=== PATIENT | male | born 1955 | race Caucasian/White ===

== ENCOUNTER 2018-07-26 13:08 | Inpatient (IN) | payer OTHER ==
--- NOTE | 2018-07-26 14:18 | PDOC ---
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 Patient states that he is unable to walk half a block without getting short of breath. He states he is using multiple pillows to sleep and that he cannot lie flat at night. He states that he was admitted for similar symptoms this past summer. Denies fevers, chills, chest pain, palpitations, edema, nausea, vomiting and diarrhea. <Wendy Hodgson - Last Filed: 07/26/18 18:47> <Stacy Mustafa - Last Filed: 07/28/18 18:36> - General Chief Complaint: Respiratory Stated Complaint: RESPIRATORY (PCP SENT) Time Seen by Provider: 07/26/18 13:45 Past History - Travel Traveled outside of the country in the last 30 days: No Close contact w/someone who was outside of country & ill: No - Past Medical History Anemia: No Asthma: No Cancer: No Cardiac Disorders: Yes CVA: No COPD: No CHF: No Dementia: No Diabetes: Yes GI Disorders: No Disorders: No HTN: Yes Hypercholesterolemia: Yes Liver Disease: No Seizures: No Thyroid Disease: No - Surgical History Abdominal Surgery: No Appendectomy: No Cardiac Surgery: Yes (CABG, STENTS) Cholecystectomy: No Lung Surgery: No Neurologic Surgery: No Orthopedic Surgery: No - Immunization History Immunization Up to Date: Yes - Suicide/Smoking/Psychosocial Hx Smoking Status: No Smoking History: Unknown if ever smoked Have you smoked in the past 12 months: No Number of Cigarettes Smoked Daily: 0 Cigars Per Day: 0 Hx Alcohol Use: No Drug/Substance Use Hx: No Substance Use Type: None Hx Substance Use Treatment: No <Wendy Hodgson - Last Filed: 07/26/18 18:47> <Stacy Mustafa - Last Filed: 07/28/18 18:36> - Past Medical History Allergies/Adverse Reactions: Allergies Allergy/AdvReac Type Severity Reaction Status Date / Time No Known Drug Allergies Allergy Verified 07/26/18 13:17 Home Medications: Ambulatory Orders Aspirin [ASA -] 81 mg PO DAILY #60 tab.chew 06/12/14 Clopidogrel Bisulfate [Plavix -] 75 mg PO DAILY #30 tablet 06/12/14 Fenofibric Acid [Trilipix -] 135 mg PO DAILY #30 cap 06/12/14 Metoprolol Tartrate [Lopressor -] 25 mg PO BID #60 tablet 06/12/14 Tamsulosin HCl [Flomax -] 0.4 mg PO DAILY #30 cap.er.24h 06/12/14 Miconazole Nitrate [Miconazole Nitrate -] 1 applic TP BID #1 tube 06/20/14 Insulin Glargine,Hum.rec.anlog [Lantus Solostar PEN -] 45 units SQ HS 11/22/14 Baclofen 10 mg PO BID 04/22/18 Empagliflozin [Jardiance] 25 mg PO DAILY 04/22/18 Ranitidine [Zantac -] 150 mg PO BID 04/22/18 metFORMIN HCL [Glucophage -] 1,000 mg PO BID 04/22/18 Furosemide [Lasix -] 40 mg PO DAILY #30 tablet 04/24/18 Lisinopril [Prinivil] 5 mg PO DAILY #30 tablet 04/24/18 Gabapentin 600 mg PO BID 07/26/18 Atorvastatin Ca [Lipitor] 80 mg PO HS #30 tablet 07/27/18 Lisinopril [Prinivil] 2.5 mg PO DAILY #30 tablet 07/27/18 Review of Systems - Review of Systems Able to Perform ROS?: Yes Comments:: 07/26/18 18:47 CONSTITUTIONAL: Absent: fever, chills, diaphoresis, generalized weakness, malaise, loss of appetite HEENT: Absent: rhinorrhea, nasal congestion, throat pain, throat swelling, difficulty swallowing, mouth swelling, ear pain, eye pain, visual Changes CARDIOVASCULAR: Absent: chest pain, loss of consciousness, palpitations, irregular heart rate, peripheral edema RESPIRATORY: Present: shortness of breath, SOB on exertion, orthopnea. Absent: cough, wheezing, stridor, hemoptysis GASTROINTESTINAL: Absent: abdominal pain, abdominal distension, nausea, vomiting, diarrhea, constipation, melena, hematochezia GENITOURINARY: Absent: dysuria, frequency, urgency, hesitancy, hematuria, flank pain, genital pain MUSCULOSKELETAL: Absent: myalgia, arthralgia, joint swelling SKIN: Absent: rash, itching, pallor HEMATOLOGIC/IMMUNOLOGIC: Absent: easy bleeding, easy bruising, lymphadenopathy, frequent infections ENDOCRINE: Absent: unexplained weight gain, unexplained weight loss, heat intolerance, cold intolerance NEUROLOGIC: Absent: headache, focal weakness or paresthesias, dizziness, unsteady gait, seizure, mental status changes, bladder or bowel incontinence PSYCHIATRIC: Absent: anxiety, depression, suicidal or homicidal ideation, hallucinations. Is the patient limited Tongan proficient: No <Wendy Hodgson - Last Filed: 07/26/18 18:47> *Physical Exam - Vital Signs Last Vital Signs Temp Pulse Resp BP Pulse Ox 97.9 F 74 20 153/79 99 07/26/18 13:17 07/26/18 13:17 07/26/18 13:17 07/26/18 13:17 07/26/18 13:17 - Physical Exam Comments: 07/26/18 18:52 GENERAL: Well developed, well nourished. Awake and alert. No acute distress. HEENT: Normocephalic, atraumatic. PERRLA, EOMI. No conjunctival pallor. Sclera are non- icteric. Moist mucous membranes. Oropharynx is clear. NECK: Supple. Full ROM. No JVD. Carotid pulses 2+ and symmetric, without bruits. No thyromegaly. No lymphadenopathy. CARDIOVASCULAR: Regular rate and rhythm. No murmurs, rubs, or gallops. Distal pulses are 2+ and symmetric. PULMONARY: No evidence of respiratory distress. Lungs with bibasilar rales. No wheezing, or rhonchi. ABDOMINAL: Soft. Non-tender. Non-distended. No rebound or guarding. No organomegaly. Normoactive bowel sounds. MUSCULOSKELETAL Normal range of motion at all joints. No bony deformities or tenderness. No CVA tenderness. EXTREMITIES: No cyanosis. No clubbing. No edema. No calf tenderness. SKIN: Warm and dry. Normal capillary refill. No rashes. No jaundice. NEUROLOGICAL: Alert, awake, appropriate. Cranial nerves 2-12 intact. No deficits to light touch and temperature in face, upper extremities and lower extremities. No motor deficits in the in face, upper extremities and lower extremities. Normoreflexic in the upper and lower extremities. Normal speech. Toes are down- going bilaterally. Gait is normal without ataxia. PSYCHIATRIC: Cooperative. Good eye contact. Appropriate mood and affect. <Wendy Hodgson - Last Filed: 07/26/18 18:47> - Vital Signs Last Vital Signs Temp Pulse Resp BP Pulse Ox 98.7 F 74 20 137/65 97 07/28/18 14:23 07/28/18 14:23 07/28/18 14:23 07/28/18 14:23 07/28/18 09:00 <Stacy Mustafa - Last Filed: 07/28/18 18:36> ED Treatment Course - LABORATORY CBC & Chemistry Diagram: 07/26/18 14:18 07/26/18 14:18 - RADIOLOGY Radiology Studies Ordered: Category Date Time Status CHEST X-RAY PORTABLE* [RAD] Stat Radiology 07/26/18 13:55 Taken <Wendy Hodgson - Last Filed: 07/26/18 18:47> - LABORATORY CBC & Chemistry Diagram: 07/26/18 14:18 07/27/18 05:30 - ADDITIONAL ORDERS Additional order review: 07/26/18 14:18 RBC 3.85 L MCV 81.6 MCHC 32.1 RDW 15.3 MPV 9.7 Neutrophils % 76.3 Lymphocytes % 14.9 D Monocytes % 7.2 Eosinophils % 1.0 Basophils % 0.6 - Medications Given in the ED: ED Medications Discontinued Medications Generic Name Dose Route Start Last Admin Trade Name Freq PRN Reason Stop Dose Admin Aspirin 81 mg 07/27/18 10:00 07/28/18 09:19 Asa - PO 81 mg DAILY CHITO Administration Atorvastatin Calcium 80 mg 07/26/18 22:00 07/27/18 22:19 Lipitor - PO 80 mg HS CHITO Administration Baclofen 10 mg 07/27/18 22:00 07/28/18 09:19 Lioresal - PO 10 mg BID CHITO Administration Clopidogrel Bisulfate 75 mg 07/27/18 10:00 07/28/18 09:18 Plavix - PO 75 mg DAILY CHITO Administration Fenofibric Acid 135 mg 07/28/18 10:00 07/28/18 09:19 Trilipix - PO 135 mg DAILY CHITO Administration Furosemide 40 mg 07/26/18 16:00 07/26/18 19:27 Lasix Injection - IVPUSH 07/26/18 16:01 40 mg ONCE ONE Administration Furosemide 40 mg 07/27/18 06:00 07/28/18 07:02 Lasix Injection - IVPUSH 40 mg BIDLASIX CHITO Administration Furosemide 40 mg 07/28/18 14:00 07/28/18 14:03 Lasix - PO 40 mg BID@0600,1400 CHITO Administration Gabapentin 300 mg 07/26/18 23:45 07/28/18 09:16 Neurontin - PO 300 mg BID CHITO Administration Insulin Detemir 45 units 07/27/18 22:00 07/27/18 22:18 Levemir Vial SQ Not Given HS CHITO Lisinopril 2.5 mg 07/27/18 10:00 07/28/18 09:16 Prinivil PO 2.5 mg DAILY CHITO Administration Metformin HCl 1,000 mg 07/27/18 16:30 07/28/18 07:06 Glucophage - PO 1,000 mg BIDAC CHITO Administration Metoprolol Succinate 12.5 mg 07/28/18 10:00 07/28/18 09:18 Toprol Xl - PO 12.5 mg DAILY CHITO Administration <Stacy Mustafa - Last Filed: 07/28/18 18:36> Medical Decision Making - Medical Decision Making 07/26/18 16:12 Patient is a 63-year-old male past medical history of CHF, who presents to the [facility] department for worsening shortness of breath for one week. On exam patient with bilateral rales. No murmurs rubs or gallops on cardiac exam. S1 and S2 present. No pedal edema noted Oxygen saturation 94%. Place patient on nasal cannula. Creatinine is stable at 1.5 which is the patient's baseline. No leukocytosis. Collection is within normal limits. Chest x-ray with somewhat worsening effusion at this time. Spoke with Dr. Saleem, given rales on physical exam and worsening shortness of breath, will place patient in telemetry obs for CHF exacerbation. 40 of Lasix IV given in the emergency department given pt Cr at baseline. Case discussed with Dr. Armenta who agrees to placing the patient observation. <Wendy Hodgson - Last Filed: 07/26/18 18:47> *DC/Admit/Observation/Transfer - Discharge Dispostion Decision to Admit order: Yes <Wendy Hodgson - Last Filed: 07/26/18 18:47> - Attestations Physician Attestion: I reviewed the case with the mid-level practitioner and agree with the mid- level practitioner's assessment, diagnosis and disposition. <Stacy Mustafa - Last Filed: 07/28/18 18:36> Diagnosis at time of Disposition: Congestive heart failure (CHF) Qualifiers: Heart failure type: unspecified Heart failure chronicity: acute on chronic Qualified Code(s): I50.9 - Heart failure, unspecified - Discharge Dispostion Disposition: HOME Condition at time of disposition: Stable
[2018-07-26 14:28] LABS: BASO % 0.6 % (0-2.0); HEMATOCRIT 31.4 % (35.4-49); HEMOGLOBIN 10.1 GM/dL (11.7-16.9); LYMPH % 14.9 % (8-40); MCH 26.2 pg (25.7-33.7); MCHC 32.1 g/dl (32.0-35.9); MEAN CELL VOLUME 81.6 fl (80-96); MEAN PLT VOLUME 9.7 fl (7.5-11.1); MONO % 7.2 % (3.8-10.2); NEUT % 76.3 % (42.8-82.8); PLATELET COUNT 123 K/MM3 (134-434); RBC 3.85 M/mm3 (4.00-5.60); RDW 15.3 % (11.9-15.9); WHITE BLOOD COUNT 5.4 K/mm3 (4.0-10.0)
[2018-07-26 14:39] LABS: INR 1.17 (0.83-1.09); PROTHROMBIN TIME (PATIENT) 13.8 SEC (9.7-13.0)
[2018-07-26 14:58] LABS: ALBUMIN 3.2 g/dl (3.4-5.0); ALK PHOS 103 U/L (45-117); ANION GAP 7 MMOL/L (8-16); BILIRUBIN,TOTAL 0.6 mg/dL (0.2-1); BLOOD UREA NITROGEN 27 mg/dL (7-18); CHLORIDE 110 mmol/L (98-107); CO2 23 mmol/L (21-32); CREATININE 1.5 mg/dL (0.55-1.3); GLUCOSE,RANDOM 126 mg/dL (74-106); N-TERMINAL BNP 1740.2 pg/ml (5-125); POTASSIUM 4.5 mmol/L (3.5-5.1); SGOT/AST 19 U/L (15-37); SGPT/ALT 27 U/L (13-61); SODIUM 140 mmol/L (136-145); TOT PROT 6.7 g/dl (6.4-8.2)
[2018-07-26] MEDS ORDERED: FUROSEMIDE 40 MG/4 ML INJECTABLE VIAL IVPUSH ONE (16:00)
--- NOTE | 2018-07-26 17:06 | CON.CARD ---
Cardiology Consult (text) - Consultation Consultation Note: 63M with PAD,CAD, HTN, DM recent PCI sent to ER from my office for several days dyspnea, bilateral rales on exam for further management of acute on chronic diastolic CHF. REC: 1. Admit for IV diuresis and careful monitoring renal fx 2.Daily weights 3. Cardiac enzymes 4. Telemetry r/o occult arrhythmia as precipitant 5. Echo Will follow.
[2018-07-26 17:30] LABS: URINE APPEARANCE CLEAR; URINE BILIRUBIN NEGATIVE (<2.0 mg/dL); URINE COLOR LTYELLOW; URINE GLUCOSE (UA) NEGATIVE (NEGATIVE); URINE KETONE NEGATIVE (NEGATIVE); URINE LEUK ESTERASE NEGATIVE (NEGATIVE); URINE NITRITE NEGATIVE (NEGATIVE); URINE PROTEIN 2+ (NEGATIVE); URINE UROBILINOGEN NEGATIVE mg/dL (0.2-1.0)
[2018-07-26 17:45] LABS: URINE HYALINE CAST 3 /lpf; URINE MUCUS RARE
--- NOTE | 2018-07-26 18:20 | EKG ---
Test Reason : Blood Pressure : / mmHG Vent. Rate : 069 BPM Atrial Rate : 069 BPM P-R Int : 188 ms QRS Dur : 100 ms QT Int : 412 ms P-R-T Axes : 040 -06 129 degrees QTc Int : 441 ms NORMAL SINUS RHYTHM POSSIBLE LEFT ATRIAL ENLARGEMENT LEFT VENTRICULAR HYPERTROPHY WITH REPOLARIZATION ABNORMALITY ABNORMAL ECG WHEN COMPARED WITH ECG OF 22-APR-2018 10:59, NO SIGNIFICANT CHANGE WAS FOUND Confirmed by EMI BAR MD ([id number]) on 07/26/2018 6:20:43 PM Referred By: Confirmed By:EMI BAR MD
--- NOTE | 2018-07-26 18:20 | HP ---
Admitting History and Physical - Primary Care Physician PCP: Axel Armenta - Admission Chief Complaint: sob History of Present Illness: 63M with PAD,CAD, HTN, DM recent PCI sent to ER from cardiology office for several days dyspnea, bilateral rales ,for further management of acute on chronic diastolic CHF. 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, Other (3rd nerve palsy) Cardiovascular: Yes: CAD, HTN, Hyperlipdemia, Other (PAD) Pulmonary: Yes: Asthma Rheumatology: Yes: Fibromyalgia Endocrine: Yes: Diabetes Mellitus - Past Surgical History Past Surgical History: Yes: CABG, Stent - Smoking History Smoking history: Unknown if ever smoked Have you smoked in the past 12 months: No Aproximately how many cigarettes per day: 0 - Alcohol/Substance Use Hx Alcohol Use: No - Social History ADL: Independent History of Recent Travel: No Home Medications - Allergies Allergies/Adverse Reactions: Allergies Allergy/AdvReac Type Severity Reaction Status Date / Time No Known Drug Allergies Allergy Verified 07/26/18 13:17 - Home Medications Home Medications: Ambulatory Orders Aspirin [ASA -] 81 mg PO DAILY #60 tab.chew 06/12/14 Clopidogrel Bisulfate [Plavix -] 75 mg PO DAILY #30 tablet 06/12/14 Fenofibric Acid [Trilipix -] 135 mg PO DAILY #30 cap 06/12/14 Metoprolol Tartrate [Lopressor -] 25 mg PO BID #60 tablet 06/12/14 Tamsulosin HCl [Flomax -] 0.4 mg PO DAILY #30 cap.er.24h 06/12/14 Miconazole Nitrate [Miconazole Nitrate -] 1 applic TP BID #1 tube 06/20/14 Insulin Glargine,Hum.rec.anlog [Lantus Solostar PEN -] 45 units SQ HS 11/22/14 Baclofen 10 mg PO BID 04/22/18 Empagliflozin [Jardiance] 25 mg PO DAILY 04/22/18 Ranitidine [Zantac -] 150 mg PO BID 04/22/18 metFORMIN HCL [Glucophage -] 1,000 mg PO BID 04/22/18 Furosemide [Lasix -] 40 mg PO DAILY #30 tablet 04/24/18 Lisinopril [Prinivil] 5 mg PO DAILY #30 tablet 04/24/18 Gabapentin 600 mg PO BID 11/19/18 Atorvastatin Ca [Lipitor] 80 mg PO HS #30 tablet 07/27/18 Lisinopril [Prinivil] 2.5 mg PO DAILY #30 tablet 07/27/18 Physical Examination Vital Signs: Vital Signs Temperature 97.9 F 07/26/18 13:17 Pulse Rate 74 07/26/18 13:17 Respiratory Rate 20 07/26/18 13:17 Blood Pressure 153/79 07/26/18 13:17 O2 Sat by Pulse Oximetry (%) 94 L 07/26/18 13:24 Constitutional: Yes: No Distress HENT: Yes: Atraumatic Neck: Yes: Supple Cardiovascular: Yes: Regular Rate and Rhythm Respiratory: Yes: Rales Gastrointestinal: Yes: Normal Bowel Sounds Extremities: Yes: WNL Edema: No Peripheral Pulses WNL: Yes Neurological: Yes: Alert, Oriented Labs: CBC, BMP 07/26/18 14:18 07/26/18 14:18 Imaging - Results Chest X-ray: Report Reviewed Problem List - Problems (1) Congestive heart failure (CHF) Assessment/Plan: on iv lasix improving Code(s): I50.9 - HEART FAILURE, UNSPECIFIED Qualifiers: Heart failure type: unspecified Heart failure chronicity: acute on chronic Qualified Code(s): I50.9 - Heart failure, unspecified (2) Diabetes Assessment/Plan: on meds stable Code(s): E11.9 - TYPE 2 DIABETES MELLITUS WITHOUT COMPLICATIONS (3) Hypertension Assessment/Plan: on meds stable Code(s): I10 - ESSENTIAL (PRIMARY) HYPERTENSION Assessment/Plan Laboratory Tests 07/26/18 07/26/18 07/26/18 14:18 14:18 14:18 WBC 5.4 RBC 3.85 L Hgb 10.1 L Hct 31.4 L MCV 81.6 MCH 26.2 MCHC 32.1 RDW 15.3 Plt Count 123 L MPV 9.7 Absolute Neuts (auto) 4.1 Neutrophils % 76.3 Lymphocytes % 14.9 D Monocytes % 7.2 Eosinophils % 1.0 Basophils % 0.6 Nucleated RBC % 0 PT with INR 13.80 H INR 1.17 H Sodium 140 Potassium 4.5 Chloride 110 H Carbon Dioxide 23 Anion Gap 7 L BUN 27 H Creatinine 1.5 H Creat Clearance w eGFR 47.27 Random Glucose 126 H Calcium 8.0 L Total Bilirubin 0.6 AST 19 ALT 27 Alkaline Phosphatase 103 Creatine Kinase Troponin I B-Natriuretic Peptide 1740.2 H Total Protein 6.7 Albumin 3.2 L Urine Color Urine Appearance Urine pH Ur Specific [place] Urine Protein Urine Glucose (UA) Urine Ketones Urine Blood Urine Nitrite Urine Bilirubin Urine Urobilinogen Ur Leukocyte Esterase Urine WBC (Auto) Urine RBC (Auto) Hyaline Casts Urine Mucus 07/26/18 07/26/18 14:18 16:34 WBC RBC Hgb Hct MCV MCH MCHC RDW Plt Count MPV Absolute Neuts (auto) Neutrophils % Lymphocytes % Monocytes % Eosinophils % Basophils % Nucleated RBC % PT with INR INR Sodium Potassium Chloride Carbon Dioxide Anion Gap BUN Creatinine Creat Clearance w eGFR Random Glucose Calcium Total Bilirubin AST ALT Alkaline Phosphatase Creatine Kinase 112 Troponin I 0.04 B-Natriuretic Peptide Total Protein Albumin Urine Color Ltyellow Urine Appearance Clear Urine pH 5.0 Ur Specific [place] 1.016 Urine Protein 2+ H Urine Glucose (UA) Negative Urine Ketones Negative Urine Blood 1+ H Urine Nitrite Negative Urine Bilirubin Negative Urine Urobilinogen Negative Ur Leukocyte Esterase Negative Urine WBC (Auto) <1 Urine RBC (Auto) 2 Hyaline Casts 3 Urine Mucus Rare Active Medications Generic Name Dose Route Start Last Admin Trade Name Freq PRN Reason Stop Dose Admin Aspirin 81 mg 07/27/18 10:00 Asa - PO DAILY CHITO Atorvastatin Calcium 80 mg 07/26/18 22:00 Lipitor - PO HS CHITO Clopidogrel Bisulfate 75 mg 07/27/18 10:00 Plavix - PO DAILY CHITO Furosemide 40 mg 07/27/18 06:00 Lasix Injection - IVPUSH BIDLASIX CHITO Lisinopril 2.5 mg 07/27/18 10:00 Prinivil PO DAILY CHITO
[2018-07-26] MEDS ORDERED: FUROSEMIDE 40 MG/4 ML INJECTABLE VIAL ONE (19:28)
[2018-07-26 21:27] VITALS: BMI 25.8
[2018-07-26] MEDS: ATORVASTATIN CA 80 MG TABLET (FP) PO SCH (21:36)
[2018-07-26] MEDS: GABAPENTIN 300 MG CAPSULE (FP) PO SCH (23:51)
[2018-07-27] MEDS: FUROSEMIDE 40 MG/4 ML INJECTABLE VIAL IVPUSH SCH ×2 (06:56→14:54)
[2018-07-27 07:49] LABS: ANION GAP 8 MMOL/L (8-16); BLOOD UREA NITROGEN 26 mg/dL (7-18); CALCIUM 8.4 mg/dL (8.5-10.1); CHLORIDE 109 mmol/L (98-107); CO2 26 mmol/L (21-32); CREATININE 1.3 mg/dL (0.55-1.3); GLUCOSE,RANDOM 118 mg/dL (74-106); MAGNESIUM 2.1 mg/dL (1.8-2.4); POTASSIUM 4.4 mmol/L (3.5-5.1); SODIUM 142 mmol/L (136-145)
--- NOTE | 2018-07-27 09:15 | PN ---
Progress Note, Physician Chief Complaint: Feeling better No acute distress - Current Medication List Current Medications: Active Medications Aspirin (Asa -) 81 mg PO DAILY [facility] Atorvastatin Calcium (Lipitor -) 80 mg PO HS [facility] Last Admin: 07/26/18 21:36 Dose: 80 mg Clopidogrel Bisulfate (Plavix -) 75 mg PO DAILY [facility] Furosemide (Lasix Injection -) 40 mg IVPUSH BIDLASIX [facility] Last Admin: 07/27/18 06:56 Dose: 40 mg Gabapentin (Neurontin -) 300 mg PO BID [facility] Last Admin: 07/26/18 23:51 Dose: 300 mg Lisinopril (Prinivil) 2.5 mg PO DAILY [facility] - Objective Vital Signs: Vital Signs Temperature 98.2 F 07/27/18 06:45 Pulse Rate 72 07/27/18 06:45 Respiratory Rate 20 07/27/18 06:45 Blood Pressure 130/67 07/27/18 06:45 O2 Sat by Pulse Oximetry (%) 99 07/26/18 21:28 Constitutional: Yes: No Distress, Calm Eyes: Yes: Conjunctiva Clear Respiratory: Yes: Other (decreased breath sounds at bases) Gastrointestinal: Yes: Soft (nontender) Edema: No Neurological: Yes: Alert, Oriented Labs: CBC, BMP 07/26/18 14:18 07/27/18 05:30 INR, PTT INR 1.17 (0.83-1.09) H 07/26/18 14:18 Laboratory Tests 07/27/18 07/27/18 05:30 05:30 Sodium 142 Potassium 4.4 BUN 26 H Creatinine 1.3 Hemoglobin A1c % 10.6 H Magnesium 2.1 Assessment/Plan IMP: CAD , hx NSTEMI and PCIs PAD DM Acute on chronic diastolic CHF REC: 1. Continue IV Lasix BID 2. Daily weights and low sodium diet 3. Echo 4. Continue Lisinopril 5. Needs improved glycemic control
--- NOTE | 2018-07-27 09:30 | ECHO ---
Name: REDDYSONIAYOVANY Exam:Adult Echocardiogram Study Date: 07/27/2018 07:47 AM Age: 63 yrs Reason For Study: chf Height: 68 in Weight: 179 lb BSA: 1.9 m2 MMode/2D Measurements & Calculations IVSd: 0.87 cm Ao root diam: 3.9 cm LVIDd: 6.2 cm LA dimension: 5.0 cm LVIDs: 4.9 cm ACS: 1.9 cm LVPWd: 0.84 cm IVSs: 1.0 cm LVPWs: 1.4 cm EDV(Teich): 194.0 ml ESV(Teich): 112.1 ml Doppler Measurements & Calculations MV E max manjit: 81.7 cm/sec Ao V2 max: 103.8 cm/sec MV A max manjit: 65.6 cm/sec Ao max P.3 mmHg MV E/A: 1.2 MR max manjit: 474.0 cm/sec Med Peak E' Manjit: 5.2 cm/sec MR max P.9 mmHg Med E/e': 15.8 Lat Peak E' Manjit: 7.1 cm/sec Lat E/e': 11.5 Procedure A complete two-dimensional transthoracic echocardiogram was performed (2D, M-mode, Doppler and color flow Doppler). Left Ventricle The left ventricle is moderately dilated. Ejection Fraction = 35%. Left ventricular systolic function is moderately reduced. The transmitral spectral Doppler flow pattern is suggestive of impaired LV relaxa tion. There is moderate global hypokinesis of the left ventricle. Right Ventricle The right ventricle is normal in size and function. Atria The left atrium is moderately dilated. Right atrial size is normal. Mitral Valve There is mild to moderate mitral annular calcification. There is mild to moderate mitral regurgitatio n. The mitral regurgitant jet is eccentrically directed. Tricuspid Valve The tricuspid valve is not well visualized, but is grossly normal. There is trace tricuspid regurgita tion. There was insufficient TR detected to calculate RV systolic pressure. Aortic Valve There is mild to moderate aortic sclerosis.;. Trace aortic regurgitation. Pulmonic Valve The pulmonic valve is not well seen, but is grossly normal. Great Vessels The aortic root is normal size. Pericardium/Pleura There is no pericardial effusion. There is no pleural effusion. Interpretation Summary The left ventricle is moderately dilated. There is moderate global hypokinesis of the left ventricle. Left ventricular systolic function is moderately reduced. Ejection Fraction = 35%. The left atrium is moderately dilated. There is mild to moderate mitral regurgitation. The mitral regurgitant jet is eccentrically directed. There is mild to moderate aortic sclerosis.; Trace aortic regurgitation. There is trace tricuspid regurgitation. MD Russell Delvalle 07/27/2018 09:30 AM
[2018-07-27 10:04] LABS: CHOLESTEROL 125 mg/dL (50-200); HDL CHOLESTEROL 23 mg/dL (40-60); TRIGLYCERIDES 202 mg/dL (0-150)
[2018-07-27] MEDS: ASPIRIN 81 MG CHEWABLE TABLETS PO SCH (10:10)
[2018-07-27] MEDS: LISINOPRIL 5 MG TABLET (FP) PO SCH (10:10)
[2018-07-27] MEDS: GABAPENTIN 300 MG CAPSULE (FP) PO SCH ×2 (10:10→22:20)
[2018-07-27] MEDS: CLOPIDOGREL BISULFATE 75 MG TABLET (FP) PO SCH (10:11)
--- NOTE | 2018-07-27 16:08 | PN ---
Progress Note, Physician History of Present Illness: doing well - Current Medication List Current Medications: Active Medications Aspirin (Asa -) 81 mg PO DAILY [facility] Last Admin: 07/27/18 10:10 Dose: 81 mg Atorvastatin Calcium (Lipitor -) 80 mg PO HS [facility] Last Admin: 07/26/18 21:36 Dose: 80 mg Clopidogrel Bisulfate (Plavix -) 75 mg PO DAILY [facility] Last Admin: 07/27/18 10:11 Dose: 75 mg Furosemide (Lasix Injection -) 40 mg IVPUSH BIDLASIX [facility] Last Admin: 07/27/18 14:54 Dose: 40 mg Gabapentin (Neurontin -) 300 mg PO BID [facility] Last Admin: 07/27/18 10:10 Dose: 300 mg Lisinopril (Prinivil) 2.5 mg PO DAILY [facility] Last Admin: 07/27/18 10:10 Dose: 2.5 mg - Objective Vital Signs: Vital Signs Temperature 98.2 F 07/27/18 06:45 Pulse Rate 72 07/27/18 06:45 Respiratory Rate 20 07/27/18 06:45 Blood Pressure 130/67 07/27/18 06:45 O2 Sat by Pulse Oximetry (%) 99 07/27/18 09:00 Constitutional: Yes: No Distress HENT: Yes: Atraumatic Neck: Yes: Supple Cardiovascular: Yes: Regular Rate and Rhythm Respiratory: Yes: CTA Bilaterally Gastrointestinal: Yes: Normal Bowel Sounds Extremities: Yes: WNL Edema: No Peripheral Pulses WNL: Yes Neurological: Yes: Alert, Oriented Labs: CBC, BMP 07/26/18 14:18 07/27/18 05:30 INR, PTT INR 1.17 (0.83-1.09) H 07/26/18 14:18 Problem List - Problems (1) Congestive heart failure (CHF) Assessment/Plan: on iv lasix improving Code(s): I50.9 - HEART FAILURE, UNSPECIFIED Qualifiers: Heart failure type: unspecified Heart failure chronicity: acute on chronic Qualified Code(s): I50.9 - Heart failure, unspecified (2) Diabetes Assessment/Plan: on meds stable Code(s): E11.9 - TYPE 2 DIABETES MELLITUS WITHOUT COMPLICATIONS (3) Hypertension Assessment/Plan: on meds stable Code(s): I10 - ESSENTIAL (PRIMARY) HYPERTENSION
[2018-07-27] MEDS: metFORMIN HCL 500 MG TABLET (FP) PO SCH (17:41)
[2018-07-27] MEDS ORDERED: INSULIN (LEVEMIR) 100 UNITS/ML UNITS SQ SCH (22:00)
[2018-07-27] MEDS ORDERED: GABAPENTIN 600 MG PO SCH (22:00)
[2018-07-27] MEDS: ATORVASTATIN CA 80 MG TABLET (FP) PO SCH (22:19)
[2018-07-27] MEDS: BACLOFEN 10 MG TABLET (FP) PO SCH (22:20)
[2018-07-28] MEDS: FUROSEMIDE 40 MG/4 ML INJECTABLE VIAL IVPUSH SCH (07:02)
[2018-07-28] MEDS: metFORMIN HCL 500 MG TABLET (FP) PO SCH (07:06)
--- NOTE | 2018-07-28 08:42 | PN ---
Progress Note, Physician Chief Complaint: Down 8 lbs since admission Clinically improved. TELE: NSR, no ventricular arrhythmias. History of Present Illness: BP remains well controlled. Echo reviewed: EF 35%, Mild to moderate MR - Current Medication List Current Medications: Active Medications Aspirin (Asa -) 81 mg PO DAILY [facility] Last Admin: 07/27/18 10:10 Dose: 81 mg Atorvastatin Calcium (Lipitor -) 80 mg PO HS [facility] Last Admin: 07/27/18 22:19 Dose: 80 mg Baclofen (Lioresal -) 10 mg PO BID [facility] Last Admin: 07/27/18 22:20 Dose: 10 mg Clopidogrel Bisulfate (Plavix -) 75 mg PO DAILY [facility] Last Admin: 07/27/18 10:11 Dose: 75 mg Fenofibric Acid (Trilipix -) 135 mg PO DAILY [facility] Furosemide (Lasix Injection -) 40 mg IVPUSH BIDLASIX [facility] Last Admin: 07/28/18 07:02 Dose: 40 mg Gabapentin (Neurontin -) 300 mg PO BID [facility] Last Admin: 07/27/18 22:20 Dose: 300 mg Insulin Detemir (Levemir Vial) 45 units SQ HS [facility] Last Admin: 07/27/18 22:18 Dose: Not Given Lisinopril (Prinivil) 2.5 mg PO DAILY [facility] Last Admin: 07/27/18 10:10 Dose: 2.5 mg Metformin HCl (Glucophage -) 1,000 mg PO BIDAC [facility] Last Admin: 07/28/18 07:06 Dose: 1,000 mg - Objective Vital Signs: Vital Signs Temperature 98.2 F 07/28/18 06:00 Pulse Rate 78 07/28/18 06:00 Respiratory Rate 20 07/28/18 06:00 Blood Pressure 120/65 07/28/18 06:00 O2 Sat by Pulse Oximetry (%) 97 07/27/18 20:58 Constitutional: Yes: Calm Cardiovascular: Yes: Regular Rate and Rhythm Respiratory: Yes: Other (slight decreased breath sounds at bases. much improved from admission.) Gastrointestinal: Yes: Soft Edema: No Neurological: Yes: Alert, Oriented ...Motor Strength: WNL Labs: CBC, BMP 07/26/18 14:18 07/27/18 05:30 INR, PTT INR 1.17 (0.83-1.09) H 07/26/18 14:18 - ....Imaging EKG: Image Reviewed Assessment/Plan IMP: CAD , hx NSTEMI and PCIs PAD DM Acute on chronic systolic CHF, clinically improved-- likely due to medication non adherence REC: Clinically improved, down 8lbs since admission. Stable for discharge later today on a simplified regimen: ASA 81mg daily Plavix 75mg daily Lisinopril 2.5 mg daily Toprol XL 12.5 mg daily Lasix 40 mg BID Fenofibrate 135mg or equivalent Atorvastatin 40mg daily DM Meds as per Medical team Follow up with me next week: will address possible ICD placement with him as outpatient.
[2018-07-28] MEDS ORDERED: PT OWN MED DRAWER 7, Y5N ONE (09:12)
[2018-07-28] MEDS: LISINOPRIL 5 MG TABLET (FP) PO SCH (09:16)
[2018-07-28] MEDS: GABAPENTIN 300 MG CAPSULE (FP) PO SCH (09:16)
[2018-07-28] MEDS: CLOPIDOGREL BISULFATE 75 MG TABLET (FP) PO SCH (09:18)
[2018-07-28] MEDS: ASPIRIN 81 MG CHEWABLE TABLETS PO SCH (09:19)
[2018-07-28] MEDS: BACLOFEN 10 MG TABLET (FP) PO SCH (09:19)
[2018-07-28] MEDS ORDERED: FENOFIBRIC ACID 135 MG CAP PO SCH (10:00)
[2018-07-28] MEDS ORDERED: metoPROLOL SUCCINATE 25 MG TAB.SR.24H (FP) PO SCH (10:00)
[2018-07-28] MEDS ORDERED: FUROSEMIDE 40 MG TABLET (FP) PO SCH (14:00)
[2018-07-28 14:24] VITALS: BP 137/65; PULSE 74; TEMP 98.7
--- NOTE | 2018-07-28 17:01 | DS ---
Physical Examination Vital Signs: Vital Signs Temperature 98.7 F 07/28/18 14:23 Pulse Rate 74 07/28/18 14:23 Respiratory Rate 20 07/28/18 14:23 Blood Pressure 137/65 07/28/18 14:23 O2 Sat by Pulse Oximetry (%) 97 07/28/18 09:00 Constitutional: Yes: No Distress HENT: Yes: Atraumatic Neck: Yes: Supple Cardiovascular: Yes: Regular Rate and Rhythm Respiratory: Yes: CTA Bilaterally Gastrointestinal: Yes: Normal Bowel Sounds Extremities: Yes: WNL Edema: No Peripheral Pulses WNL: Yes Neurological: Yes: Alert, Oriented Labs: CBC, BMP 07/26/18 14:18 07/27/18 05:30 Discharge Summary Reason For Visit: CONGESTIVE HEART FAILURE Condition: Stable - Instructions Disposition: HOME - Home Medications Comprehensive Discharge Medication List: Ambulatory Orders Aspirin [ASA -] 81 mg PO DAILY #60 tab.chew 06/12/14 Clopidogrel Bisulfate [Plavix -] 75 mg PO DAILY #30 tablet 06/12/14 Fenofibric Acid [Trilipix -] 135 mg PO DAILY #30 cap 06/12/14 Metoprolol Tartrate [Lopressor -] 25 mg PO BID #60 tablet 06/12/14 Tamsulosin HCl [Flomax -] 0.4 mg PO DAILY #30 cap.er.24h 06/12/14 Miconazole Nitrate [Miconazole Nitrate -] 1 applic TP BID #1 tube 06/20/14 Insulin Glargine,Hum.rec.anlog [Lantus Solostar PEN -] 45 units SQ HS 11/22/14 Baclofen 10 mg PO BID 04/22/18 Empagliflozin [Jardiance] 25 mg PO DAILY 04/22/18 Ranitidine [Zantac -] 150 mg PO BID 04/22/18 metFORMIN HCL [Glucophage -] 1,000 mg PO BID 04/22/18 Furosemide [Lasix -] 40 mg PO DAILY #30 tablet 04/24/18 Lisinopril [Prinivil] 5 mg PO DAILY #30 tablet 04/24/18 Gabapentin 600 mg PO BID 07/26/18 Atorvastatin Ca [Lipitor] 80 mg PO HS #30 tablet 07/27/18 Lisinopril [Prinivil] 2.5 mg PO DAILY #30 tablet 07/27/18 nc home
[2018-07-28] MEDS ORDERED: ATORVASTATIN CA 40 MG TABLET (FP) PO SCH (22:00)
== END 2018-07-28 15:06 | disposition home or self-care (01) | DRG 194 ==
LOC: JER 13:08 → JERBED 16:34 → OBSVTOIN 18:20 → J4W 20:48
PROVIDERS: ADMIT Internal Medicine; ATTEND Internal Medicine
DX: I11.0 Hypertensive heart disease with heart failure (principal); I50.33 Acute on chronic diastolic (congestive) heart failure; I73.9 Peripheral vascular disease, unspecified; Z95.1 Presence of aortocoronary bypass graft; E11.9 Type 2 diabetes mellitus without complications; Z91.14 Patient's other noncompliance with medication regimen; I34.0 Nonrheumatic mitral (valve) insufficiency; Z79.4 Long term (current) use of insulin; Z79.84 Long term (current) use of oral hypoglycemic drugs; E78.5 Hyperlipidemia, unspecified; J45.909 Unspecified asthma, uncomplicated; I25.10 Atherosclerotic heart disease of native coronary artery without angina pectoris; I25.2 Old myocardial infarction; M79.7 Fibromyalgia; Z86.73 Personal history of transient ischemic attack (TIA), and cerebral infarction without residual deficits
CPT/HCPCS: 36415; 71045-TC-FY; 80048; 80053; 80061; 81003; 81015; 82550; 82962; 83036; 83721; 83735; 83880; 84484; 85025; 85610; 93005; 93010; 93306-TC; 99282-25; G0378; J0475

== ENCOUNTER 2019-04-11 11:44 | Emergency (ER) | payer OTHER ==
--- NOTE | 2019-04-11 12:23 | PDOC ---
Rapid Medical Evaluation Medical Evaluation: Allergies Allergy/AdvReac Type Severity Reaction Status Date / Time No Known Drug Allergies Allergy Verified 07/26/18 13:17 I have performed a brief in-person evaluation of this patient. The patient presents with a chief complaint of: Hx of PAD,CAD, HTN, DM; was doing echo today and while getting up, felt pain along L side of back and now in pain; hx of herniated disc; no prior back surgeries; denies cp, sob, abd pain , n/v Pertinent physical exam findings: abdomen soft, NT; +lumbar spine, paraspinal tenderness I have ordered the following: tylenol, lido patch, flexeril The patient will proceed to the ED for further evaluation. 04/11/19 12:22
[2019-04-11 12:27] VITALS: BP 105/56; PULSE 77; TEMP 98; BMI 25.8
[2019-04-11] MEDS ORDERED: ACETAMINOPHEN 325 MG TABLET (FP) PO ONE (12:27)
[2019-04-11] MEDS ORDERED: LIDOCAINE 5% TOPICAL PATCH TP ONE (12:27)
[2019-04-11] MEDS ORDERED: CYCLOBENZAPRINE HCL 10 MG TABLET (FP) PO ONE (12:27)
[2019-04-11] MEDS ORDERED: CYCLOBENZAPRINE HCL 10 MG TABLET (FP) ONE (13:08)
[2019-04-11] MEDS ORDERED: LIDOCAINE 5% TOPICAL PATCH ONE (13:08)
[2019-04-11] MEDS ORDERED: ACETAMINOPHEN 325 MG TABLET (FP) ONE (13:08)
--- NOTE | 2019-04-11 13:40 | PDOC ---
History of Present Illness - General Chief Complaint: Back Pain Stated Complaint: BACK PAIN Time Seen by Provider: 04/11/19 12:22 - History of Present Illness Initial Comments: 04/11/19 13:35 CHIEF COMPLAINT: back pain HISTORY OF PRESENT ILLNESS: 63 yo M with hx of PAD,CAD, HTN, DM presents to fast track with back pain. Patient states he was getting an echo today and while getting up, felt pain along L side of back and now in pain. Patient also c/o of chronic b/l leg pain Patient has a hx of herniated disc; no prior back surgeries. Patient denies cp, sob, abd pain, n/v, loss of bowel or bladder dysfunction. No recent travel or sick contacts. PAST MEDICAL HISTORY: Denies past medical history FAMILY HISTORY: Denies SOCIAL HISTORY: Denies tobacco, alcohol, illicit drug use. SURGICAL HISTORY: Denies ALLERGIES: No known drug allergies REVIEW OF SYSTEMS General/Constitutional: Denies fever or chills. Denies weakness, weight change. HEENT: Denies change in vision. Denies ear pain or discharge. Denies sore throat. Cardiovascular: Denies chest pain or shortness of breath. Respiratory: Denies cough, wheezing, or hemoptysis. Gastrointestinal: Denies nausea, vomiting, diarrhea or constipation. Denies rectal bleeding. Genitourinary: Denies dysuria, frequency, or change in urination. Musculoskeletal: L lower back pain. Skin and breasts: Denies rash or easy bruising. Neurologic: Denies headache, vertigo, loss of consciousness, or loss of sensation. PHYSICAL EXAM General Appearance: Well-appearing, appropriately dressed. No apparent distress. HEENT: EOMI, PERRLA, normal ENT inspection, normal voice, TMs normal, pharynx normal. No conjunctival pallor. No photophobia, scleral icterus. Neck: Supple. Trachea midline. No tenderness, rigidity, carotid bruit, stridor , lymphadenopathy, or thyromegaly. Respiratory/Chest: Lungs CTAB. No shortness of breath, chest tenderness, respiratory distress, accessory muscle use. No crackles, rales, rhonchi, stridor , wheezing, dullness Cardiovascular: RRR. S1, S2. Vascular Pulses: Dorsalis-Pedis (R): 2+, Dorsalis-Pedis (L): 2+ Gastrointestinal/Abdominal: Normal bowel sounds. Abdomen soft, non-distended. No tenderness or rebound tenderness. No organomegaly, pulsatile mass, guarding , hernia, hepatomegaly, splenomegaly. Musculoskeletal/Extremities: Tenderness to L paravertebral muscles at L5. Fully ambulatory. Full sensation to b/l LE, no saddle anesthesia. Normal inspection. FROM of all extremities, normal capillary refill. Pelvis Stable. No CVA tenderness. No tenderness to extremities, pedal edema, swelling, erythema or deformity. Integumentary: Appropriate color, dry, warm. No cyanosis, erythema, jaundice or rash Neurologic: panelbeater II-XII intact. Fully oriented, alert. Appropriate mood/affect. Motor strength 5/5. No appreciable EOM palsy, facial droop or sensory deficit. Past History - Past Medical History Allergies/Adverse Reactions: Allergies Allergy/AdvReac Type Severity Reaction Status Date / Time No Known Drug Allergies Allergy Verified 04/11/19 12:27 Home Medications: Ambulatory Orders Aspirin [ASA -] 81 mg PO DAILY #60 tab.chew 06/12/14 Clopidogrel Bisulfate [Plavix -] 75 mg PO DAILY #30 tablet 06/12/14 Fenofibric Acid [Trilipix -] 135 mg PO DAILY #30 cap 06/12/14 Metoprolol Tartrate [Lopressor -] 25 mg PO BID #60 tablet 06/12/14 Tamsulosin HCl [Flomax -] 0.4 mg PO DAILY #30 cap.er.24h 06/12/14 Miconazole Nitrate [Miconazole Nitrate -] 1 applic TP BID #1 tube 06/20/14 Insulin Glargine,Hum.rec.anlog [Lantus Solostar PEN -] 45 units SQ HS 11/22/14 Baclofen 10 mg PO BID 04/22/18 Empagliflozin [Jardiance] 25 mg PO DAILY 04/22/18 Ranitidine [Zantac -] 150 mg PO BID 04/22/18 metFORMIN HCL [Glucophage -] 1,000 mg PO BID 04/22/18 Furosemide [Lasix -] 40 mg PO DAILY #30 tablet 04/24/18 Lisinopril [Prinivil] 5 mg PO DAILY #30 tablet 04/24/18 Gabapentin 600 mg PO BID 07/26/18 Atorvastatin Ca [Lipitor] 80 mg PO HS #30 tablet 07/27/18 Lisinopril [Prinivil] 2.5 mg PO DAILY #30 tablet 07/27/18 Lidocaine 1 each TP DAILY PRN #3 adh..patch 04/11/19 Anemia: No Asthma: No Cancer: No Cardiac Disorders: Yes (3 stents) CVA: No COPD: No CHF: No Dementia: No Diabetes: Yes GI Disorders: No Disorders: No HTN: Yes Hypercholesterolemia: Yes Liver Disease: No Seizures: No Thyroid Disease: No - Surgical History Abdominal Surgery: No Appendectomy: No Cardiac Surgery: Yes (CABG, STENTS) Cholecystectomy: No Lung Surgery: No Neurologic Surgery: No Orthopedic Surgery: No - Immunization History Immunization Up to Date: Yes - Suicide/Smoking/Psychosocial Hx Smoking Status: No Smoking History: Never smoked Have you smoked in the past 12 months: No Number of Cigarettes Smoked Daily: 0 Cigars Per Day: 0 Information on smoking cessation initiated: No Hx Alcohol Use: No Drug/Substance Use Hx: No Substance Use Type: None Hx Substance Use Treatment: No *Physical Exam - Vital Signs Last Vital Signs Temp Pulse Resp BP Pulse Ox 98 F 77 19 105/56 L 100 04/11/19 12:25 04/11/19 12:25 04/11/19 12:25 04/11/19 12:25 04/11/19 12:25 ED Treatment Course - Medications Given in the ED: ED Medications Discontinued Medications Generic Name Dose Route Start Last Admin Trade Name Avelq PRN Reason Stop Dose Admin Acetaminophen 650 mg 04/11/19 12:27 04/11/19 13:13 Tylenol - PO 04/11/19 12:28 650 mg ONCE ONE Administration Cyclobenzaprine HCl 10 mg 04/11/19 12:27 04/11/19 13:13 Flexeril - PO 04/11/19 12:28 10 mg ONCE ONE Administration Lidocaine 1 patch 04/11/19 12:27 04/11/19 13:13 Lidoderm Patch - TP 04/11/19 12:28 1 patch ONCE ONE Administration Medical Decision Making - Medical Decision Making 04/11/19 13:46 63 yo M with hx of PAD,CAD, HTN, DM presents to fast track with back pain. -lidocaine patch, tylenol, cyclobenzaprine give in RME. patient reports the pain is improving and is ready to go home and f/u with PCP. *DC/Admit/Observation/Transfer Diagnosis at time of Disposition: Back pain Qualifiers: Back pain location: low back pain Chronicity: acute Back pain laterality: left Sciatica presence: without sciatica Qualified Code(s): M54.5 - Low back pain - Discharge Dispostion Disposition: HOME Condition at time of disposition: Stable - Prescriptions Prescriptions: Lidocaine 1 each TP DAILY PRN #3 adh..patch PRN Reason: Back Pain - Referrals Referrals: ON STAFF,NOT [Primary Care Provider] - Yusef Hidalgo DO [Staff Physician] - - Patient Instructions Printed Discharge Instructions: DI for Low Back Pain Print Language: MALAY - Post Discharge Activity
== END 2019-04-11 13:58 | disposition home or self-care (01) ==
LOC: JERFT 11:44
DX: M54.5 Low back pain (principal); I25.10 Atherosclerotic heart disease of native coronary artery without angina pectoris; I10 Essential (primary) hypertension; Z95.1 Presence of aortocoronary bypass graft; Z95.5 Presence of coronary angioplasty implant and graft; E11.9 Type 2 diabetes mellitus without complications; Z79.4 Long term (current) use of insulin; E78.00 Pure hypercholesterolemia, unspecified
CPT/HCPCS: 99281-25

== ENCOUNTER 2019-04-14 20:21 | Inpatient (IN) | payer OTHER ==
--- NOTE | 2019-04-14 20:28 | PDOC ---
Rapid Medical Evaluation Time Seen by Provider: 04/14/19 20:23 Medical Evaluation: Allergies Allergy/AdvReac Type Severity Reaction Status Date / Time No Known Drug Allergies Allergy Verified 04/11/19 12:27 04/14/19 20:23 Pt presents for 5 days of black tarry stools with lower abdominal pain. Admits to abdominal pain. This has never happened before. No fevers, n/v. Exam: discomfort to the LLQ. Rectal exam deferred Orders: Labs, Stool for Occult blood, urine, IV Pt to proceed to the ER for further evaluation Discharge Disposition - Diagnosis Tarry stool - Referrals - Patient Instructions - Post Discharge Activity
--- NOTE | 2019-04-14 21:44 | PDOC ---
History of Present Illness - General Chief Complaint: Pain Stated Complaint: ABD PAIN Time Seen by Provider: 04/14/19 20:23 - History of Present Illness Initial Comments: 04/14/19 22:48 63M pmhx of CABG 1999 x3 PCI x2 to LAD (plavix & ASA), endarterectomy, HLD, DM II, CHF presents to the ED for 5-6 days of black tarry stool diarrhea increasing in density, now approaching solid state. He denies fatigue, weakness, but admit taking a new iron supplement for the past 2 months. No other symptoms. No dysuria, no edema no dyspepsia or other GERD symptoms. Past History - Past Medical History Allergies/Adverse Reactions: Allergies Allergy/AdvReac Type Severity Reaction Status Date / Time No Known Drug Allergies Allergy Verified 04/14/19 20:25 Home Medications: Ambulatory Orders Aspirin [ASA -] 81 mg PO DAILY #60 tab.chew 06/12/14 Clopidogrel Bisulfate [Plavix -] 75 mg PO DAILY #30 tablet 06/12/14 Fenofibric Acid [Trilipix -] 135 mg PO DAILY #30 cap 06/12/14 Metoprolol Tartrate [Lopressor -] 25 mg PO BID #60 tablet 06/12/14 Tamsulosin HCl [Flomax -] 0.4 mg PO DAILY #30 cap.er.24h 06/12/14 Miconazole Nitrate [Miconazole Nitrate -] 1 applic TP BID #1 tube 06/20/14 Insulin Glargine,Hum.rec.anlog [Lantus Solostar PEN -] 45 units SQ HS 11/22/14 Baclofen 10 mg PO BID 04/22/18 Empagliflozin [Jardiance] 25 mg PO DAILY 04/22/18 Ranitidine [Zantac -] 150 mg PO BID 04/22/18 metFORMIN HCL [Glucophage -] 1,000 mg PO BID 04/22/18 Furosemide [Lasix -] 40 mg PO DAILY #30 tablet 04/24/18 Lisinopril [Prinivil] 5 mg PO DAILY #30 tablet 04/24/18 Gabapentin 600 mg PO BID 07/26/18 Atorvastatin Ca [Lipitor] 80 mg PO HS #30 tablet 07/27/18 Lisinopril [Prinivil] 2.5 mg PO DAILY #30 tablet 07/27/18 Lidocaine 1 each TP DAILY PRN #3 adh..patch 04/11/19 Anemia: No Asthma: No Cancer: No Cardiac Disorders: Yes (3 stents) CVA: No COPD: No CHF: No Dementia: No Diabetes: Yes GI Disorders: No Disorders: No HTN: Yes Hypercholesterolemia: Yes Liver Disease: No Seizures: No Thyroid Disease: No - Surgical History Abdominal Surgery: No Appendectomy: No Cardiac Surgery: Yes (CABG, STENTS) Cholecystectomy: No Lung Surgery: No Neurologic Surgery: No Orthopedic Surgery: No - Immunization History Immunization Up to Date: Yes - Suicide/Smoking/Psychosocial Hx Smoking Status: No Smoking History: Never smoked Have you smoked in the past 12 months: No Number of Cigarettes Smoked Daily: 0 Cigars Per Day: 0 Hx Alcohol Use: No Drug/Substance Use Hx: No Substance Use Type: None Hx Substance Use Treatment: No Review of Systems - Review of Systems Able to Perform ROS?: Yes Is the patient limited Eritrean proficient: No Constitutional: No: Symptoms Reported HEENTM: No: Symptoms Reported Respiratory: No: Symptoms reported Cardiac (ROS): No: Symptoms Reported ABD/GI: Yes: See HPI : No: Symptoms Reported Musculoskeletal: No: Symptoms Reported Integumentary: No: Symptoms Reported All Other Systems: Reviewed and Negative *Physical Exam - Vital Signs Last Vital Signs Temp Pulse Resp BP Pulse Ox 98.6 F 80 18 125/73 100 04/14/19 20:25 04/14/19 20:25 04/14/19 20:25 04/14/19 20:25 04/14/19 20:25 - Physical Exam General Appearance: Yes: Nourished, Appropriately Dressed. No: Apparent Distress HEENT: positive: EOMI, JESSIE, Normal ENT Inspection Respiratory/Chest: positive: Lungs Clear, Normal Breath Sounds. negative: Chest Tender, Respiratory Distress Cardiovascular: positive: Regular Rhythm, Regular Rate, S1, S2 Gastrointestinal/Abdominal: positive: Normal Bowel Sounds, Tender (lower left quadrant) Rectal Exam: positive: melena. negative: hemorrhoids Musculoskeletal: positive: Normal Inspection. negative: CVA Tenderness Extremity: positive: Normal Capillary Refill, Normal Inspection, Normal Range of Motion Integumentary: positive: Normal Color, Dry, Warm Neurologic: positive: Fully Oriented, Alert, Normal Mood/Affect, Normal Response , Motor Strength /5 ED Treatment Course - LABORATORY CBC & Chemistry Diagram: 04/14/19 22:45 04/14/19 22:45 Medical Decision Making - Medical Decision Making 04/14/19 22:54 63m with extensive cardiovascular pathologies, diabetes, with multiple episodes of melena over the past 5-6 days. Will first and foremost rule out GI bleed with CBC and stool occult. Will also consider other causes like iron supplementation although expected symptom is constipation, not diarrhea. Labs pending. Likely admit. 04/14/19 23:[address] scan abd pending 04/15/19 01:05 Ct read: hepatosplenomegaly - 2.4cm soft tissue nodule adjacent to the pancreatic tail level of splenic hilum. Likely accessory splenic nodule. Consider liver spleen scan follow up, - No large or small bowel inflammatory changes or evidence of obstruction. Will admit for FRANK *DC/Admit/Observation/Transfer Diagnosis at time of Disposition: Tarry stool, FRANK (acute kidney injury) - Discharge Dispostion Condition at time of disposition: Fair - Referrals - Patient Instructions - Post Discharge Activity
[2019-04-14] MEDS ORDERED: PANTOPRAZOLE SODIUM 40 MG VIAL IVPUSH ONE (22:11)
[2019-04-14] MEDS ORDERED: PANTOPRAZOLE SODIUM 40 MG VIAL ONE (22:26)
[2019-04-14] MEDS ORDERED: SODIUM CHLORIDE 0.9% 1000 ML INFUS.BAG IV ONE ×2 (23:11→23:55)
--- NOTE | 2019-04-14 23:19 | PDOC ---
Documentation entered by Bette Oliva SCRIBE, acting as scribe for Soumya Gasca DO. Soumya Gasca DO: This documentation has been prepared by the kristiibe, Bette Oliva SCRIBE, under my direction and personally reviewed by me in its entirety. I confirm that the documentation accurately reflects all work, treatment, procedures, and medical decision making performed by me. Attending Attestation - Resident Resident Name: Roberto Christine - ED Attending Attestation I have performed the following: I have examined & evaluated the patient, The case was reviewed & discussed with the resident, I agree w/resident's findings & plan, Exceptions are as noted - HPI HPI: 04/14/19 22:24 The patient is a 63-year-old male with a past medical history significant for HTN, HLD, DM, open-heart surgery (1998) and endarterectomy was sent to the emergency department by PCP for evaluation for black tarry stool and diarrhea. The patient reports 5 days of black tarry stool diarrhea. The patient reports he had 8-9 episodes a day, today he reports having 4 episodes. The patient reports hes currently on Plavix and recently started on Iron supplements 2 months ago for anemia. Denies fever, chills, nausea, vomiting, epigastric pain , chest pain or shortness of breath. Allergies: NKDA Cards: Dr. Saleem PCP: Dr. Chi ([place]) - Physicial Exam PE: 04/14/19 23:20 GENERAL: Awake, alert, and fully oriented, in no acute distress HEAD: No signs of trauma EYES: PERRLA, EOMI, sclera anicteric, conjunctiva clear ENT: Auricles normal inspection, hearing grossly normal, nares patent, oropharynx clear without exudates. Moist mucosa NECK: Normal ROM, supple, no lymphadenopathy, JVD, or masses LUNGS: Breath sounds equal, clear to auscultation bilaterally. No wheezes, and no crackles HEART: Regular rate and rhythm, normal S1 and S2, no murmurs, rubs or gallops ABDOMEN: +LLQ tenderness Soft. No guarding, no rebound. No masses EXTREMITIES: Normal range of motion, no edema. No clubbing or cyanosis. No cords, erythema, or tenderness NEUROLOGICAL: no focal deficit. Normal speech. SKIN: Warm, Dry, normal turgor, no rashes or lesions noted. - Medical Decision Making 04/14/19 23:11 I, Dr. Soumya Gasca, DO, attest that this document has been prepared under my direction and personally reviewed by me in its entirety. I further attest, that it accurately reflects all work, treatment, procedures and medical decision -making performed by me. 04/14/19 23:12 a/p: 63yo male with hx of anemia on iron with 5 days of diarrhea -states black tarry stool -c/o LLQ pain -concern for colitis/diverticulitis given pain and diarrhea -poss GIB given black stool - stool for heme sent -will check labs, ivf hydration, start iv protonix pending stool for heme -will monitor and reassess 04/14/19 23:18 stool for heme neg 04/14/19 23:49 pt with frank cr 1.9 from normal ivf hydration running will change ct to noncon 04/14/19 23:55 hgb 10.6 04/15/19 00:[address] imaging 04/15/19 01:00 ct shows soft tissue nodule next to pancreatic tail, poss splenic cyst no other acute findings pt will need admission for FRANK 04/15/19 01:33 cxr clear microblog sent to [facility] for admission 04/15/19 01:47 case discussed with [facility] who accepts pt to service *DC/Admit/Observation/Transfer Diagnosis at time of Disposition: Tarry stool, FRANK (acute kidney injury) - Discharge Dispostion Condition at time of disposition: Fair Decision to Admit order: Yes Decision to Admit order Date/Time: Decision to Admit Order Category Date Time Status Decision to Admit to Hospital Routine Admission 04/14/19 22:11 Active - Referrals - Patient Instructions - Post Discharge Activity Heart Score/ECG Review - ECG Intrepretation Comment:: 04/14/19 23:18 sinus at 76, 1st degree av block, lvh, t wave inversions laterally 04/14/19 23:22 ekg unchanged from prior
[2019-04-14 23:45] LABS: ALBUMIN 3.8 g/dl (3.4-5.0); BASO % 0.6 % (0-2.0); BILIRUBIN,TOTAL 0.5 mg/dL (0.2-1); BLOOD UREA NITROGEN 30.4 mg/dL (7-18); CALCIUM 8.3 mg/dL (8.5-10.1); CREATININE 1.9 mg/dL (0.55-1.3); HEMATOCRIT 30.2 % (35.4-49); HEMOGLOBIN 10.6 GM/dL (11.7-16.9); LYMPH % 24.6 % (8-40); MCH 28.5 pg (25.7-33.7); MCHC 35.2 g/dl (32.0-35.9); MEAN CELL VOLUME 81.1 fl (80-96); MEAN PLT VOLUME 10.1 fl (7.5-11.1); MONO % 7.8 % (3.8-10.2); PLATELET COUNT 137 K/MM3 (134-434); POTASSIUM 4.3 mmol/L (3.5-5.1); RBC 3.73 M/mm3 (4.00-5.60); RDW 13.8 % (11.9-15.9); TOT PROT 7.7 g/dl (6.4-8.2); WHITE BLOOD COUNT 9.2 K/mm3 (4.0-10.0)
[2019-04-14 23:56] LABS: INR 1.04 (0.83-1.09); PROTHROMBIN TIME (PATIENT) 12.3 SEC (9.7-13.0)
[2019-04-15] LABS: EPI CELLS 3.3 /HPF (0-5/HPF); HYALINE CASTS 14 /lpf (0-8); URINE APPEARANCE CLEAR; URINE BACTERIA 0.3 /hpf (NEGATIVE); URINE BILIRUBIN NEGATIVE (NEGATIVE); URINE COLOR YELLOW; URINE GLUCOSE (UA) NEGATIVE (NEGATIVE); URINE KETONE NEGATIVE (NEGATIVE); URINE LEUK ESTERASE NEGATIVE (NEGATIVE); URINE NITRITE NEGATIVE (NEGATIVE); URINE PROTEIN 3+ (NEGATIVE); URINE RBC 2 /hpf (0-4); URINE UROBILINOGEN 0.2 mg/dL (0.2-1.0); URINE WBC 1 /hpf (0-5)
[2019-04-15 00:01] LABS: IRON SERUM 65 ug/dL (50-175)
--- NOTE | 2019-04-15 02:47 | HP ---
CHIEF COMPLAINT: Dark tarry stool PCP: Dr. Kaufman HISTORY OF PRESENT ILLNESS: 63 y/o M, pmh of CABGx3, PCI, b/l Endarterectomy, Hyperlipidemia, DM type 2, CHF , anemia on iron pills, presents to the ED c/o of black tarry diarrhea, initially watery now semisolid, of 5 day duration, occurring every 2-3 hours. Pt reports he has never had similar episodes in the past. He also reports non- radiating, intermittent, LLQ pain, 3/10, that started this morning in the hospital. Pt said he was in the ED 2 days ago for lower back pain, which was treated with a muscle relaxant and he was sent home. Denies f/c/n/v, sob, chest pain, numbness, tingling, urinary incontinence. ER course was notable for: (1)Urine Cx drawn- pending (2)CT abd: 2.4cm nodule adjacent to the pancreatic tail, at the level of the splenic hilum, 1.7 cm cyst on right kidney (3) Recent Travel: denies PAST MEDICAL HISTORY: CAD, Hyperlipidemia, DM type 2, CHF, anemia, PAD s/p fem-pop bypass PAST SURGICAL HISTORY: CABGx3, PCI, b/l Endarterectomy Social History: Smoking: denies, smokers present at home Alcohol: denies Drugs: denies Family History: noncontributory Allergies No Known Drug Allergies Allergy (Verified 04/14/19 20:25) HOME MEDICATIONS: Home Medications Medication Instructions Recorded Aspirin [ASA -] 81 mg PO DAILY #60 tab.chew 06/12/14 Clopidogrel Bisulfate [Plavix -] 75 mg PO DAILY #30 tablet 06/12/14 Fenofibric Acid [Trilipix -] 135 mg PO DAILY #30 cap 06/12/14 Metoprolol Tartrate [Lopressor -] 25 mg PO BID #60 tablet 06/12/14 Tamsulosin HCl [Flomax -] 0.4 mg PO DAILY #30 cap.er.24h 06/12/14 Miconazole Nitrate [Miconazole 1 applic TP BID #1 tube 06/20/14 Nitrate -] Insulin Glargine,Hum.rec.anlog 45 units SQ HS 11/22/14 [Lantus Solostar PEN -] Baclofen 10 mg PO BID 04/22/18 Empagliflozin [Jardiance] 25 mg PO DAILY 04/22/18 Ranitidine [Zantac -] 150 mg PO BID 04/22/18 metFORMIN HCL [Glucophage -] 1,000 mg PO BID 04/22/18 Furosemide [Lasix -] 40 mg PO DAILY #30 tablet 04/24/18 Lisinopril [Prinivil] 5 mg PO DAILY #30 tablet 04/24/18 Gabapentin 600 mg PO BID 07/26/18 Atorvastatin Ca [Lipitor] 80 mg PO HS #30 tablet 07/27/18 Lisinopril [Prinivil] 2.5 mg PO DAILY #30 tablet 07/27/18 Lidocaine 1 each TP DAILY PRN #3 adh..patch 04/11/19 REVIEW OF SYSTEMS CONSTITUTIONAL: Absent: fever, chills, diaphoresis, generalized weakness, loss of appetite, weight change CARDIOVASCULAR: Absent: chest pain, syncope, palpitations, peripheral edema RESPIRATORY: Absent: cough, shortness of breath, wheezing, stridor, hemoptysis GASTROINTESTINAL: Admits: hematochezia, LLQ abdominal pain started today morning, diarrhea Absent: abdominal distension, nausea, vomiting, constipation, melena, GENITOURINARY: Absent: dysuria, frequency, urgency, hesitancy, hematuria, flank pain, genital pain ENDOCRINE: Absent: unexplained weight gain, unexplained weight loss NEUROLOGIC: Absent: headache, bladder or bowel incontinence PHYSICAL EXAMINATION Vital Signs - 24 hr Last Vital Signs Temp Pulse Resp BP Pulse Ox 98.6 F 80 18 125/73 100 04/14/19 20:25 04/14/19 20:25 04/14/19 20:25 04/14/19 20:25 04/14/19 20:25 GENERAL: Awake, alert, and fully oriented, in no acute distress. EYES: Pupils equal, round and reactive to light, extraocular movements intact, NECK: supple without lymphadenopathy, JVD, or masses. LUNGS: Breath sounds equal, clear to auscultation bilaterally. No wheezes, and no crackles. HEART: Mild murmur appreciated. Regular rate and rhythm, normal S1 and S2, rub or gallop. ABDOMEN: Soft, nontender, not distended, normoactive bowel sounds, no guarding, no rebound, no masses. No hepatomegaly or splenomegaly. MUSCULOSKELETAL: No CVA tenderness. Rectal: ALEX negative UPPER EXTREMITIES: 2+ pulses, warm, well-perfused. No peripheral edema. LOWER EXTREMITIES: 2+ pulses, warm, well-perfused. No peripheral edema. PSYCHIATRIC: Cooperative. Good eye contact. Appropriate mood and affect. Laboratory Results - last 24 hr CBC, BMP 04/14/19 22:45 04/14/19 22:45 Hepatic Panel Total Bilirubin 0.5 mg/dL (0.2-1) 04/14/19 22:45 AST 24 U/L (15-37) 04/14/19 22:45 ALT 22 U/L (13-61) 04/14/19 22:45 Alkaline Phosphatase 127 U/L (45-117) H 04/14/19 22:45 Albumin 3.8 g/dl (3.4-5.0) 04/14/19 22:45 ASSESSMENT/PLAN: 63 y/o M, pmh of CABGx3, PCI, b/l Endarterectomy, CHF, anemia on iron pills, presents to the ED c/o of black tarry diarrhea #Diarrhea 2/2 viral gastroenteritis vs Iron suppl related r/p U/S Alex neg Lactoferrin-ordered Fecal WBC-ordered MRCP outpt #FRANK LR 45mls/hr- slow due to old ECHO EF 35 #DM type 2 Old A1c 10.6 A1c- f/u Insulin sliding scale #Anemia Hold iron- r/o iron suppl related diarrhea monitor H/H #CHF continue home meds- lasiks, metoprolol #CAD continue home meds- Plavix, ASA #HTN continue home meds- Lisinopril Monitor BP #DVT ppx SCDs b/l FEN: NPO Dispo: monitor labs, monitor overnight, f/u U/S stool Cx, symptomatic management Visit type - Emergency Visit Emergency Visit: Yes ED Registration Date: 04/15/19 Care time: The patient presented to the Emergency Department on the above date and was hospitalized for further evaluation of their emergent condition. - New Patient This patient is new to me today: Yes Date on this admission: 04/20/19 - Critical Care Critical Care patient: No ATTENDING PHYSICIAN STATEMENT I saw and evaluated the patient. I reviewed the resident's note and discussed the case with the resident. I agree with the resident's findings and plan as documented. SUBJECTIVE: OBJECTIVE: ASSESSMENT AND PLAN:
[2019-04-15] MEDS ORDERED: LACTATED RINGERS SOLUTION 1,000 ML IV SCH ×2 (03:00→04:33)
--- NOTE | 2019-04-15 04:37 | PN ---
Teaching Attending Note Name of Resident: Carie Nunez ATTENDING PHYSICIAN STATEMENT I saw and evaluated the patient. I reviewed the resident's note and discussed the case with the resident. I agree with the resident's findings and plan as documented. Seen and examined; please refer to resident note for further historical information. Briefly, this is a 63 y/o male with several days worth of diarrhea presenting with likely prerenal FRANK. He is afebrile and hemodynamically stable. No diarrhea since ER arrival. Baseline Cr 2018 >1.5. Described as black and tarry but negative FOBT and no iron supplements and no precipitous drop in Hb. It is actually becoming more formed VS, labs, imaging reviewed NAD, AAO, resting in bed NC AT EOMI PERRLA RRR s1/2 Lungs CTAB, w/ sym exp NT ND hyperactive BS CN2-12 wnl, no fnd, no issues ambulating EKG reviewed CT shows hepatosplenomegaly with soft tissue nodule in the pancreatic tail at the splenic hilum likely representing accessory nodule. ASSESSMENT AND PLAN: # Acute diarrhea -Hydrated in ER; no further episodes, no colitis on CT. FOBT negative. Followup lactoferrin/WBC. Low probability Cdiff. Negative FOBT. Can repeat, trend Hb, but no need to urgently consult GI if repeat negative FOBT and alternate explanation. # CKD -Cr 1.9 not qualifying as FRANK; hydrated in ER. Off IVF and will hold lisinopril and furosemide forbnow; can resume if stable. No labs in our system for >1 yr and known CKD that is likely worsening. # Mild systolic CHF, NYHA-I at baseline -No acute exacerbation, doing well post-hydration # Likely splenic nodule -Followup final report; would require routine surveilance. Consider non-urgent MRCP; CKD can limit use of contrast. Recieves care at [facility]; can call there to compare to old scans. # CAD s/p CABG and multivessel PCI -Continue plavix (recent LAD revasc), ASA, BB, statin # PAD s/p LE revasc and b/l CEA -No acute issues; continue antiplt, statin # DM -SSI while inpt # HLD -On high dose statin; continue. OP lipids. Full Code
[2019-04-15 05:26] VITALS: BMI 26.4
[2019-04-15] MEDS: INSULIN SLIDING SCALE (NOVOLOG) 1 VIAL SQ SCH ×2 (06:11→14:12)
--- NOTE | 2019-04-15 06:51 | PN ---
Physical Exam: SUBJECTIVE: Patient seen and examined OBJECTIVE: Vital Signs Period Temp Pulse Resp BP Sys/[place] Pulse Ox Last 24 Hr 98.2 F-98.6 F 70-80 18-20 125-159/70-78 96-100 GENERAL: The patient is awake, alert, and fully oriented, in no acute distress. HEAD: Normal with no signs of trauma. EYES: PERRL, extraocular movements intact, sclera anicteric, conjunctiva clear. No ptosis. ENT: Ears normal, nares patent, oropharynx clear without exudates, moist mucous membranes. NECK: Trachea midline, full range of motion, supple. LUNGS: Breath sounds equal, clear to auscultation bilaterally, no wheezes, no crackles, no accessory muscle use. HEART: Regular rate and rhythm, S1, S2 without murmur, rub or gallop. ABDOMEN: Soft, nontender, nondistended, normoactive bowel sounds, no guarding, no rebound, no hepatosplenomegaly, no masses. EXTREMITIES: 2+ pulses, warm, well-perfused, no edema. NEUROLOGICAL: Cranial nerves II through XII grossly intact. Normal speech, gait not observed. PSYCH: Normal mood, normal affect. SKIN: Warm, dry, normal turgor, no rashes or lesions noted Laboratory Results - last 24 hr 04/14/19 04/14/19 04/14/19 22:00 22:45 22:45 WBC 9.2 RBC 3.73 L Hgb 10.6 L Hct 30.2 L MCV 81.1 MCH 28.5 MCHC 35.2 RDW 13.8 Plt Count 137 MPV 10.1 Absolute Neuts (auto) 6.1 Neutrophils % 66.0 Lymphocytes % 24.6 D Monocytes % 7.8 Eosinophils % 1.0 Basophils % 0.6 Nucleated RBC % 0 PT with INR INR Sodium 139 Potassium 4.3 Chloride 106 Carbon Dioxide 23 Anion Gap 10 BUN 30.4 H Creatinine 1.9 H Est GFR (CKD-EPI)AfAm 42.54 Est GFR (CKD-EPI)NonAf 36.70 POC Glucometer Random Glucose 206 H Calcium 8.3 L Iron Total Bilirubin 0.5 AST 24 ALT 22 Alkaline Phosphatase 127 H Creatine Kinase Creatine Kinase Index CK-MB (CK-2) Total Protein 7.7 Albumin 3.8 Urine Color Urine Appearance Urine pH Ur Specific [place] Urine Protein Urine Glucose (UA) Urine Ketones Urine Blood Urine Nitrite Urine Bilirubin Urine Urobilinogen Ur Leukocyte Esterase Urine WBC (Auto) Urine RBC (Auto) Urine Casts (Auto) U Pathogenic Cast Auto U Epithel Cells (Auto) Urine Bacteria (Auto) Stool Occult Blood Negative 04/14/19 04/14/19 04/14/19 22:45 22:45 23:15 WBC RBC Hgb Hct MCV MCH MCHC RDW Plt Count MPV Absolute Neuts (auto) Neutrophils % Lymphocytes % Monocytes % Eosinophils % Basophils % Nucleated RBC % PT with INR 12.30 INR 1.04 Sodium Potassium Chloride Carbon Dioxide Anion Gap BUN Creatinine Est GFR (CKD-EPI)AfAm Est GFR (CKD-EPI)NonAf POC Glucometer Random Glucose Calcium Iron 65 Total Bilirubin AST ALT Alkaline Phosphatase Creatine Kinase 107 Creatine Kinase Index CK-MB (CK-2) Total Protein Albumin Urine Color Yellow Urine Appearance Clear Urine pH 5.0 Ur Specific [place] 1.017 Urine Protein 3+ H Urine Glucose (UA) Negative Urine Ketones Negative Urine Blood 1+ H Urine Nitrite Negative Urine Bilirubin Negative Urine Urobilinogen 0.2 Ur Leukocyte Esterase Negative Urine WBC (Auto) 1 Urine RBC (Auto) 2 Urine Casts (Auto) 14 U Pathogenic Cast Auto 1-3 U Epithel Cells (Auto) 3.3 Urine Bacteria (Auto) 0.3 Stool Occult Blood 04/15/19 04/15/19 04:05 06:10 WBC RBC Hgb Hct MCV MCH MCHC RDW Plt Count MPV Absolute Neuts (auto) Neutrophils % Lymphocytes % Monocytes % Eosinophils % Basophils % Nucleated RBC % PT with INR INR Sodium Potassium Chloride Carbon Dioxide Anion Gap BUN Creatinine Est GFR (CKD-EPI)AfAm Est GFR (CKD-EPI)NonAf POC Glucometer 152 Random Glucose Calcium Iron Total Bilirubin AST ALT Alkaline Phosphatase Creatine Kinase 235 Creatine Kinase Index 0.6 CK-MB (CK-2) 1.6 Total Protein Albumin Urine Color Urine Appearance Urine pH Ur Specific [place] Urine Protein Urine Glucose (UA) Urine Ketones Urine Blood Urine Nitrite Urine Bilirubin Urine Urobilinogen Ur Leukocyte Esterase Urine WBC (Auto) Urine RBC (Auto) Urine Casts (Auto) U Pathogenic Cast Auto U Epithel Cells (Auto) Urine Bacteria (Auto) Stool Occult Blood Active Medications Generic Name Dose Route Start Last Admin Trade Name Freq PRN Reason Stop Dose Admin Aspirin 81 mg 04/15/19 10:00 Asa - PO DAILY [facility] Atorvastatin Calcium 80 mg 04/15/19 22:00 Lipitor - PO HS [facility] Clopidogrel Bisulfate 75 mg 04/15/19 10:00 Plavix - PO DAILY [facility] Insulin Aspart 1 vial 04/15/19 07:00 04/15/19 06:11 Novolog Vial Sliding Scale - SQ Not Given ACHS [facility] Protocol Metoprolol Tartrate 25 mg 04/15/19 10:00 Lopressor - PO BID [facility] Tamsulosin HCl 0.4 mg 04/15/19 08:30 Flomax - PO DAILY@0830 [facility] ASSESSMENT/PLAN: 63 y/o M, pmh of CABGx3, PCI, b/l Endarterectomy, Hyperlipidemia, DM type 2, CHF , anemia on iron pills, presents to the ED c/o of black tarry diarrhea, initially watery now semisolid, of 5 day duration, occurring every 2-3 hours. Pt reports he has never had similar episodes in the past. He also reports non- radiating, intermittent, LLQ pain, 3/10, that started this morning in the hospital. Pt said he was in the ED 2 days ago for lower back pain, which was treated with a muscle relaxant and he was sent home. Denies f/c/n/v, sob, chest pain, numbness, tingling, urinary incontinence. ER course was notable for: (1)Urine Cx pending, UA Protein 3+ Blood 1+ (2)CT abd: 2.4cm nodule adjacent to the pancreatic tail, at the level of the splenic hilum, 1.7 cm cyst on right kidney (3) H&H 10.6/30.2 BUN 30.4/1.9 Recent Travel: denies PAST MEDICAL HISTORY: CAD, Hyperlipidemia, DM type 2, CHF, anemia, PAD s/p fem-pop bypass PAST SURGICAL HISTORY: CABGx3, PCI, b/l Endarterectomy 63 y/o M, pmh of CABGx3, PCI, b/l Endarterectomy, CHF, anemia on iron pills, presents to the ED c/o of black tarry diarrhea #Diarrhea 2/2 viral gastroenteritis vs Iron suppl related - USG - CHRIS NEG - Lactoferrin pending - Fecal WBC pending - MRCP outpatient #FRANK - R/L 45mls/hr- slow due to old ECHO EF 35 #DM type 2 - Previous HbA1c 10.6, new one pending - Insulin SS #Anemia - Hold iron- r/o iron suppl related diarrhea - monitor H/H #CHF - Cont home meds- lasiks, metoprolol #CAD - Cont home meds Plavix, ASA #HTN - Cont home meds Lisinopril #DVT ppx - SCD #FEN -NPO Dispo: monitor labs, monitor overnight, f/u U/S stool Cx, symptomatic management ATTENDING PHYSICIAN STATEMENT I saw and evaluated the patient. I reviewed the resident's note and discussed the case with the resident. I agree with the resident's findings and plan as documented. SUBJECTIVE: OBJECTIVE: ASSESSMENT AND PLAN:
--- NOTE | 2019-04-15 08:08 | PN ---
Teaching Attending Note Name of Resident: Gideon Fitzgerald ATTENDING PHYSICIAN STATEMENT I saw and evaluated the patient. I reviewed the resident's note and discussed the case with the resident. I agree with the resident's findings and plan as documented. SUBJECTIVE: Patient feels improved OBJECTIVE: Vital Signs Temperature 98.2 F 04/15/19 06:00 Pulse Rate 70 04/15/19 06:00 Respiratory Rate 20 04/15/19 06:00 Blood Pressure 159/78 04/15/19 06:00 O2 Sat by Pulse Oximetry (%) 98 04/15/19 01:48 Middle aged man feels comfortable HEENT: mm moist, no anemia PERRLa EOMi NECK: no JVd no bruit CHEST: CTA B/L CVS; s1S2 R ABD; no distention, non tender Bs + EXT: no litzy afeet, no calf tenderness ENTEROSTOMAL THERAPY NURSE: AOX3 non focal Active Medications Active Medications Active Medications Aspirin (Asa -) 81 mg PO DAILY [facility] Last Admin: 04/15/19 09:42 Dose: 81 mg Atorvastatin Calcium (Lipitor -) 80 mg PO HS [facility] Clopidogrel Bisulfate (Plavix -) 75 mg PO DAILY [facility] Last Admin: 04/15/19 09:42 Dose: 75 mg Insulin Aspart (Novolog Vial Sliding Scale -) 1 vial SQ ACHS [facility]; Protocol Last Admin: 04/15/19 14:12 Dose: Not Given Metoprolol Tartrate (Lopressor -) 25 mg PO BID [facility] Last Admin: 04/15/19 09:42 Dose: 25 mg Ranitidine HCl (Zantac -) 150 mg PO BID [facility] Tamsulosin HCl (Flomax -) 0.4 mg PO DAILY@0830 [facility] Last Admin: 04/15/19 09:42 Dose: 0.4 mg ASSESSMENT AND PLAN:63 yrs old M H/OCABGx3, PCI, b/l Carotid Endarterectomy, Hyperlipidemia, T2DM CHF, Chronic anemia on iron pills, presents to the ED c/o of black tarry diarrhea, initially watery now semisolid, of 5 day duration, occurring every 2-3 hours. can be Dc Home on all his home meds except Metformin Problem List - Problems (1) Tarry stool Assessment/Plan: FOBT was reported normal, now resolving probably due to Iron H/H is at base line cont Zantac please discuss with PMD for out patient colonoscopy Code(s): George92.1 - MELENA (2) Diarrhea Assessment/Plan: improving encourage Po Hydartion Code(s): R19.7 - DIARRHEA, UNSPECIFIED (3) FRANK (acute kidney injury) Assessment/Plan: mild rise in Creat from base line now resolved Lisinopril can be added Code(s): N17.9 - ACUTE KIDNEY FAILURE, UNSPECIFIED (4) Diabetes Assessment/Plan: Hold Metform Sr Creat > 1.5 rest all meds can be resume add Basal insulin once able to tolerate PO cont correction dose insulin. Code(s): E11.9 - TYPE 2 DIABETES MELLITUS WITHOUT COMPLICATIONS Qualifiers: Diabetes mellitus type: due to underlying condition Diabetes mellitus complication detail: with nephropathy (5) Hypertension Assessment/Plan: well controlled cont all home meds Code(s): I10 - ESSENTIAL (PRIMARY) HYPERTENSION (6) CAD (coronary artery disease) Assessment/Plan: s/p CABG 3VSD and stent on sttain , B Blockers ASA and Pl;avix at present asymptomatic Code(s): I25.10 - ATHSCL HEART DISEASE OF [place] CORONARY ARTERY W/O ANG PCTRS (7) Congestive heart failure (CHF) Assessment/Plan: Last ECHO shows Ef [id number] compensated resume current meds F/U with his Car Filler. Code(s): I50.9 - HEART FAILURE, UNSPECIFIED Qualifiers: Heart failure type: systolic Heart failure chronicity: acute on chronic Qualified Code(s): I50.23 - Acute on chronic systolic (congestive) heart failure (8) Claudication in peripheral vascular disease Assessment/Plan: at present asymptomatic after surgery on Dual platelete Code(s): I73.9 - PERIPHERAL VASCULAR DISEASE, UNSPECIFIED (9) Peripheral arterial disease Code(s): I73.9 - PERIPHERAL VASCULAR DISEASE, UNSPECIFIED
[2019-04-15 08:12] LABS: BASO % 0.8 % (0-2.0); EOS % 1.3 % (0-4.5); HEMATOCRIT 30.9 % (35.4-49); HEMOGLOBIN 10.7 GM/dL (11.7-16.9); LYMPH % 19.7 % (8-40); MCH 28.4 pg (25.7-33.7); MCHC 34.6 g/dl (32.0-35.9); MEAN CELL VOLUME 81.9 fl (80-96); MEAN PLT VOLUME 9.5 fl (7.5-11.1); MONO % 6.8 % (3.8-10.2); NEUT % 71.4 % (42.8-82.8); PLATELET COUNT 126 K/MM3 (134-434); RBC 3.78 M/mm3 (4.00-5.60); RDW 14.2 % (11.9-15.9); WHITE BLOOD COUNT 6.4 K/mm3 (4.0-10.0)
[2019-04-15] MEDS ORDERED: TAMSULOSIN HCL 0.4 MG CAP PO SCH (08:30)
[2019-04-15 08:46] LABS: ALBUMIN 3.7 g/dl (3.4-5.0); BILIRUBIN,TOTAL 0.6 mg/dL (0.2-1); BLOOD UREA NITROGEN 26.2 mg/dL (7-18); CALCIUM 8.5 mg/dL (8.5-10.1); CREATININE 1.6 mg/dL (0.55-1.3); POTASSIUM 4.5 mmol/L (3.5-5.1); TOT PROT 7.4 g/dl (6.4-8.2)
[2019-04-15] MEDS ORDERED: CLOPIDOGREL BISULFATE 75 MG TABLET (FP) PO SCH (10:00)
[2019-04-15] MEDS ORDERED: METOPROLOL TARTRATE 25 MG TABLET (FP) PO SCH (10:00)
[2019-04-15] MEDS ORDERED: ASPIRIN 81 MG CHEWABLE TABLETS PO SCH (10:00)
[2019-04-15] MEDS ORDERED: FUROSEMIDE 40 MG TABLET (FP) PO SCH (10:00)
[2019-04-15] MEDS ORDERED: LISINOPRIL 5 MG TABLET (FP) PO SCH (10:00)
[2019-04-15 13:50] VITALS: BP 154/73; PULSE 73; TEMP 98.1
--- NOTE | 2019-04-15 13:58 | EKG ---
Test Reason : Blood Pressure : / mmHG Vent. Rate : 076 BPM Atrial Rate : 076 BPM P-R Int : 204 ms QRS Dur : 116 ms QT Int : 398 ms P-R-T Axes : 040 -11 078 degrees QTc Int : 447 ms SINUS RHYTHM WITH OCCASIONAL PREMATURE VENTRICULAR COMPLEXES POSSIBLE LEFT ATRIAL ENLARGEMENT LEFT VENTRICULAR HYPERTROPHY WITH QRS WIDENING NONSPECIFIC ST AND T WAVE ABNORMALITY WHEN COMPARED WITH ECG OF 07/26/18, no siginifcant change Confirmed by KADIE MILLER MD ([id number]) on 04/15/2019 1:58:22 PM Referred By: Confirmed By:KADIE MILLER MD
[2019-04-15] MEDS ORDERED: LIDOCAINE 5% TOPICAL PATCH TP PRN (14:16)
--- NOTE | 2019-04-15 18:09 | DS ---
Physical Exam: SUBJECTIVE: Patient seen and examined by the bedside, AOx3 OBJECTIVE: Vital Signs Period Temp Pulse Resp BP Sys/[place] Pulse Ox Last 24 Hr 98.1 F-98.6 F 70-80 18-20 125-159/70-78 96-100 PHYSICAL EXAM GENERAL: The patient is awake, alert, and fully oriented, in no acute distress. HEAD: Normal with no signs of trauma. EYES: PERRL, extraocular movements intact, sclera anicteric, conjunctiva clear. ENT: Ears normal, nares patent, oropharynx clear without exudates, moist mucous membranes. NECK: Trachea midline, full range of motion, supple. LUNGS: Breath sounds equal, clear to auscultation bilaterally, no wheezes, no crackles, no accessory muscle use. HEART: Regular rate and rhythm, S1, S2 without murmur, rub or gallop. ABDOMEN: Soft, non tender, nondistended, normoactive bowel sounds, no guarding, no rebound, no hepatosplenomegaly, no masses. EXTREMITIES: 2+ pulses, warm, well-perfused, no edema. NEUROLOGICAL: Cranial nerves II through XII grossly intact. Normal speech, gait not observed. PSYCH: Normal mood, normal affect. SKIN: Warm, dry, normal turgor, no rashes or lesions noted. LABS Laboratory Results - last 24 hr 04/14/19 04/14/19 04/14/19 22:00 22:45 22:45 WBC 9.2 RBC 3.73 L Hgb 10.6 L Hct 30.2 L MCV 81.1 MCH 28.5 MCHC 35.2 RDW 13.8 Plt Count 137 MPV 10.1 Absolute Neuts (auto) 6.1 Neutrophils % 66.0 Lymphocytes % 24.6 D Monocytes % 7.8 Eosinophils % 1.0 Basophils % 0.6 Nucleated RBC % 0 PT with INR INR Sodium 139 Potassium 4.3 Chloride 106 Carbon Dioxide 23 Anion Gap 10 BUN 30.4 H Creatinine 1.9 H Est GFR (CKD-EPI)AfAm 42.54 Est GFR (CKD-EPI)NonAf 36.70 POC Glucometer Random Glucose 206 H Calcium 8.3 L Iron Total Bilirubin 0.5 AST 24 ALT 22 Alkaline Phosphatase 127 H Creatine Kinase Creatine Kinase Index CK-MB (CK-2) Total Protein 7.7 Albumin 3.8 Lipase Urine Color Urine Appearance Urine pH Ur Specific [place] Urine Protein Urine Glucose (UA) Urine Ketones Urine Blood Urine Nitrite Urine Bilirubin Urine Urobilinogen Ur Leukocyte Esterase Urine WBC (Auto) Urine RBC (Auto) Urine Casts (Auto) U Pathogenic Cast Auto U Epithel Cells (Auto) Urine Bacteria (Auto) Stool Occult Blood Negative Blood Type Antibody Screen 04/14/19 04/14/19 04/14/19 22:45 22:45 23:15 WBC RBC Hgb Hct MCV MCH MCHC RDW Plt Count MPV Absolute Neuts (auto) Neutrophils % Lymphocytes % Monocytes % Eosinophils % Basophils % Nucleated RBC % PT with INR 12.30 INR 1.04 Sodium Potassium Chloride Carbon Dioxide Anion Gap BUN Creatinine Est GFR (CKD-EPI)AfAm Est GFR (CKD-EPI)NonAf POC Glucometer Random Glucose Calcium Iron 65 Total Bilirubin AST ALT Alkaline Phosphatase Creatine Kinase 107 Creatine Kinase Index CK-MB (CK-2) Total Protein Albumin Lipase Urine Color Yellow Urine Appearance Clear Urine pH 5.0 Ur Specific [place] 1.017 Urine Protein 3+ H Urine Glucose (UA) Negative Urine Ketones Negative Urine Blood 1+ H Urine Nitrite Negative Urine Bilirubin Negative Urine Urobilinogen 0.2 Ur Leukocyte Esterase Negative Urine WBC (Auto) 1 Urine RBC (Auto) 2 Urine Casts (Auto) 14 U Pathogenic Cast Auto 1-3 U Epithel Cells (Auto) 3.3 Urine Bacteria (Auto) 0.3 Stool Occult Blood Blood Type Antibody Screen 04/15/19 04/15/19 04/15/19 04:05 04:05 06:10 WBC RBC Hgb Hct MCV MCH MCHC RDW Plt Count MPV Absolute Neuts (auto) Neutrophils % Lymphocytes % Monocytes % Eosinophils % Basophils % Nucleated RBC % PT with INR INR Sodium Potassium Chloride Carbon Dioxide Anion Gap BUN Creatinine Est GFR (CKD-EPI)AfAm Est GFR (CKD-EPI)NonAf POC Glucometer 152 Random Glucose Calcium Iron Total Bilirubin AST ALT Alkaline Phosphatase Creatine Kinase 235 Creatine Kinase Index 0.6 CK-MB (CK-2) 1.6 Total Protein Albumin Lipase Urine Color Urine Appearance Urine pH Ur Specific [place] Urine Protein Urine Glucose (UA) Urine Ketones Urine Blood Urine Nitrite Urine Bilirubin Urine Urobilinogen Ur Leukocyte Esterase Urine WBC (Auto) Urine RBC (Auto) Urine Casts (Auto) U Pathogenic Cast Auto U Epithel Cells (Auto) Urine Bacteria (Auto) Stool Occult Blood Blood Type O POSITIVE Antibody Screen Negative 04/15/19 04/15/19 04/15/19 07:40 07:40 12:26 WBC 6.4 RBC 3.78 L Hgb 10.7 L Hct 30.9 L MCV 81.9 MCH 28.4 MCHC 34.6 RDW 14.2 Plt Count 126 L MPV 9.5 Absolute Neuts (auto) 4.6 Neutrophils % 71.4 Lymphocytes % 19.7 Monocytes % 6.8 Eosinophils % 1.3 Basophils % 0.8 Nucleated RBC % 0 PT with INR INR Sodium 142 Potassium 4.5 Chloride 110 H Carbon Dioxide 27 Anion Gap 5 L BUN 26.2 H Creatinine 1.6 H Est GFR (CKD-EPI)AfAm 52.36 Est GFR (CKD-EPI)NonAf 45.18 POC Glucometer 143 Random Glucose 141 H Calcium 8.5 Iron Total Bilirubin 0.6 AST 13 L ALT 18 Alkaline Phosphatase 108 Creatine Kinase Cancelled Creatine Kinase Index CK-MB (CK-2) Total Protein 7.4 Albumin 3.7 Lipase 235 Urine Color Urine Appearance Urine pH Ur Specific [place] Urine Protein Urine Glucose (UA) Urine Ketones Urine Blood Urine Nitrite Urine Bilirubin Urine Urobilinogen Ur Leukocyte Esterase Urine WBC (Auto) Urine RBC (Auto) Urine Casts (Auto) U Pathogenic Cast Auto U Epithel Cells (Auto) Urine Bacteria (Auto) Stool Occult Blood Blood Type Antibody Screen HOSPITAL COURSE: Date of Admission:04/15/19 63 YO M with PMH of ACS, CHF, anemia on iron pills, presents to the ER with complaints of LLQ pain, non-radiating, intermittent, associated with diarrhea of 5 days, black tarry in color, initially watery now semisolid, every 2-3 hours. Pt reports he has never had similar episodes in the past. Presented to the ED 2 days ago for lower back pain, treated with lidocaine patch , cyclobenzapine, Tylenol and then D/Luis E Surgical Hx: CABG, PCI, b/l Endarterectomy ER course was notable for: (1)UA Protein 3+ Blood 1+ (2)CT abd: 2.4cm nodule adjacent to the pancreatic tail, at the level of the splenic hilum, 1.7 cm cyst on right kidney (3) H&H 10.6/30.2 BUN 30.4/1.9 Date of Discharge: 04/15/19 D/Luis E on home meds and F/U with: - PCP, Dr. Mandeep [place] - Dr. Slaeem, for CHF - Dr. Xiong #Diarrhea - USG KUB: No acute pathology - CHRIS and FOBT NEG #FRANK - R/L 45mls/hr- slow due to old ECHO EF 35 #DM type 2 - Previous HbA1c 10.6, new one pending - Insulin SS #Anemia - Hold iron- r/o iron suppl related diarrhea - monitor H/H #CHF - Cont home meds- lasiks, metoprolol #CAD - Cont home meds Plavix, ASA #HTN - Cont home meds Lisinopril #DVT ppx - SCD #FEN -NPO Minutes to complete discharge: 39 Discharge Summary Reason For Visit: ACUTE KIDNEY INJURY Condition: Stable - Instructions Diet, Activity, Other Instructions: You were admitted to the hospital because you had pain in your abdomen, along with black tarry diarrhea. While you were here, we did a scan of your abdomen (CT), and your kidneys ( Ultrasound), both of which did not show any need for urgent treatment. While you were here, you were given IV fluids. Medications: - Please continue ALL your home medications as prescribed Follow up: Please make the following appointments within one week: - With your PCP, Dr. Mandeep [place] - With your elevator mechanic, Dr. Saleem, to monitor the function of your heart. - With our tool adjuster, Dr. Xiong Additional Information: Please return to the Emergency Department if you have any of the following: Severe shortness of breath, loss of consciousness, nausea, dizziness, vomiting, diarrhea, bleeding that will not stop, blood in your urine, or persistent headache. Referrals: Jm Saleem MD [Staff Physician] - Zaire Xiong MD [Staff Physician] - Disposition: HOME - Home Medications Comprehensive Discharge Medication List: Ambulatory Orders Aspirin [ASA -] 81 mg PO DAILY #60 tab.chew 06/12/14 Clopidogrel Bisulfate [Plavix -] 75 mg PO DAILY #30 tablet 06/12/14 Tamsulosin HCl [Flomax -] 0.4 mg PO DAILY #30 cap.er.24h 06/12/14 Ranitidine [Zantac -] 150 mg PO BID 04/22/18 Furosemide [Lasix -] 40 mg PO DAILY #30 tablet 04/24/18 Gabapentin 600 mg PO TID 07/26/18 Atorvastatin Ca [Lipitor] 80 mg PO HS #30 tablet 07/27/18 Amlodipine Besylate 5 mg PO DAILY 04/15/19 Ferrous Sulfate 325 mg PO DAILY 04/15/19 Folic Acid 1 mg PO DAILY 04/15/19 Insulin Glargine,Hum.rec.anlog [Basaglar Kwikpen U-100] 30 units SQ DAILY Losartan Potassium 100 mg PO DAILY 04/15/19 Metoprolol Succinate [Toprol XL -] 25 mg PO BID 04/15/19 Multivitamins [Multivit ([facility] Formulary)] 1 tab PO DAILY 04/15/19 Oxycodone HCl/Acetaminophen [Percocet 10-325 mg Tablet] 1 tab PO BID PRN Zolpidem Tartrate [Ambien] 10 mg PO DAILY 04/15/19 This patient is new to me today: Yes Date on this admission: 04/20/19 Emergency Visit: Yes ED Registration Date: 04/15/19 Care time: The patient presented to the Emergency Department on the above date and was hospitalized for further evaluation of their emergent condition. Critical Care patient: No - Discharge Referral Referred to [facility] Med P.C.: No ATTENDING PHYSICIAN STATEMENT I saw and evaluated the patient. I reviewed the resident's note and discussed the case with the resident. I agree with the resident's findings and plan as documented. SUBJECTIVE: OBJECTIVE: ASSESSMENT AND PLAN:
[2019-04-15] MEDS ORDERED: GABAPENTIN 300 MG CAPSULE (FP) PO SCH (22:00)
[2019-04-15] MEDS ORDERED: LIDOCAINE PATCH REMOVAL MC SCH (22:00)
[2019-04-15] MEDS ORDERED: MICONAZOLE NITRATE 28 GM TUBE TP SCH (22:00)
[2019-04-15] MEDS ORDERED: ATORVASTATIN CA 80 MG TABLET (FP) PO SCH (22:00)
[2019-04-15] MEDS ORDERED: BACLOFEN 10 MG TABLET (FP) PO SCH (22:00)
[2019-04-15] MEDS ORDERED: RANITIDINE HCL 150 MG TABLET (FP) PO SCH (22:00)
[2019-04-16] MEDS ORDERED: PATIENT'S OWN MEDICATION (NON-FORMULARY) (Empagliflozin [Jardiance] 25 MG) PO SCH (10:00)
[2019-04-16] MEDS ORDERED: FENOFIBRIC ACID 135 MG CAP PO SCH (10:00)
== END 2019-04-15 16:44 | disposition home or self-care (01) | DRG 194 ==
LOC: JER 20:21 → JERBED 04-15 01:48 → J8W 04-15 04:53
PROVIDERS: ADMIT Internal Medicine; ATTEND Internal Medicine
DX: I13.0 Hypertensive heart and chronic kidney disease with heart failure and stage 1 through stage 4 chronic kidney disease, or unspecified chronic kidney disease (principal); N17.9 Acute kidney failure, unspecified; I11.0 Hypertensive heart disease with heart failure; N28.1 Cyst of kidney, acquired; K86.89 Other specified diseases of pancreas; I50.22 Chronic systolic (congestive) heart failure; E78.5 Hyperlipidemia, unspecified; A08.4 Viral intestinal infection, unspecified; Z95.1 Presence of aortocoronary bypass graft; Z95.5 Presence of coronary angioplasty implant and graft; D64.9 Anemia, unspecified; Z79.4 Long term (current) use of insulin; E11.22 Type 2 diabetes mellitus with diabetic chronic kidney disease; N18.9 Chronic kidney disease, unspecified
CPT/HCPCS: 36415; 71045-TC-FY; 74176-TC; 76775-TC; 80053; 81003; 82272; 82550; 82553; 82962; 83540; 83690; 85025; 85610; 86850; 86900; 86901; 87086; 93005; 93010; 99283-25; J7030

== ENCOUNTER 2019-06-09 11:25 | Inpatient (IN) | payer OTHER ==
[2019-06-08 12:12] VITALS: BMI 25.8
--- NOTE | 2019-06-09 12:50 | HP ---
Admitting History and Physical - Admission Chief Complaint: Left lower extremity claudication with DFU Limitations to Obtaining History: No Limitations - Past Medical History APPLICATION COUNSELOR: Yes: CVA, Other (3rd nerve palsy) Cardiovascular: Yes: CAD, HTN, Hyperlipdemia, Other (PAD) Pulmonary: Yes: Asthma Rheumatology: Yes: Fibromyalgia Endocrine: Yes: Diabetes Mellitus - Past Surgical History Past Surgical History: Yes: CABG, Stent - Smoking History Smoking history: Former smoker Have you smoked in the past 12 months: No Aproximately how many cigarettes per day: 0 If you are a former smoker, when did you quit?: 40 years ago - Alcohol/Substance Use Hx Alcohol Use: No - Social History ADL: Independent History of Recent Travel: No Home Medications - Allergies Allergies/Adverse Reactions: Allergies Allergy/AdvReac Type Severity Reaction Status Date / Time No Known Drug Allergies Allergy Verified 06/08/19 12:30 - Home Medications Home Medications: Ambulatory Orders Aspirin [ASA -] 81 mg PO DAILY #60 tab.chew 06/12/14 Clopidogrel Bisulfate [Plavix -] 75 mg PO DAILY #30 tablet 06/12/14 Ranitidine [Zantac -] 150 mg PO HS 04/22/18 Furosemide [Lasix -] 40 mg PO DAILY #30 tablet 04/24/18 Gabapentin 600 mg PO DAILY 07/26/18 Atorvastatin Ca [Lipitor] 80 mg PO HS #30 tablet 07/27/18 Amlodipine Besylate 5 mg PO DAILY 04/15/19 Ferrous Sulfate 325 mg PO DAILY 04/15/19 Folic Acid 1 mg PO DAILY 04/15/19 Insulin Glargine,Hum.rec.anlog [Basaglar Kwikpen U-100] 40 units SQ DAILY Losartan Potassium 100 mg PO DAILY 04/15/19 Metoprolol Succinate [Toprol XL -] 25 mg PO BID 04/15/19 Multivitamins [Multivit ([facility] Formulary)] 1 tab PO DAILY 04/15/19 Oxycodone HCl/Acetaminophen [Percocet 10-325 mg Tablet] 1 tab PO BID PRN Zolpidem Tartrate [Ambien] 10 mg PO HS 04/15/19 Collagenase Clostridium Hist. [Santyl] 1 applic TP DAILY #90 oint...g. 05/02/19 Tamsulosin HCl [Flomax -] 0.4 mg PO HS 06/08/19 Review of Systems - Review of Systems Constitutional: reports: No Symptoms Eyes: reports: No Symptoms HENT: reports: No Symptoms Neck: reports: No Symptoms Cardiovascular: reports: No Symptoms Respiratory: reports: No Symptoms Gastrointestinal: reports: No Symptoms Genitourinary: reports: No Symptoms Musculoskeletal: reports: No Symptoms Integumentary: reports: No Symptoms Neurological: reports: No Symptoms Endocrine: reports: No Symptoms Hematology/Lymphatic: reports: No Symptoms Psychiatric: reports: No Symptoms Physical Examination Vital Signs: Vital Signs Temperature 97.5 F L 06/09/19 11:57 Pulse Rate 77 06/09/19 11:57 Respiratory Rate 20 06/09/19 11:57 Blood Pressure 143/83 06/09/19 11:57 O2 Sat by Pulse Oximetry (%) 97 06/09/19 11:57 Constitutional: Yes: Well Nourished, No Distress, Calm Eyes: Yes: WNL, Conjunctiva Clear, EOM Intact HENT: Yes: WNL, Atraumatic, Normocephalic Neck: Yes: WNL, Supple, Trachea Midline Cardiovascular: Yes: WNL, Regular Rate and Rhythm Respiratory: Yes: WNL, Regular, CTA Bilaterally Gastrointestinal: Yes: WNL, Normal Bowel Sounds Musculoskeletal: Yes: WNL Extremities: Yes: WNL Edema: No Peripheral Pulses WNL: No Integumentary: Yes: WNL, Other (DFU left cook) Neurological: Yes: WNL, Alert, Oriented ...Motor Strength: WNL Psychiatric: Yes: WNL Problem List - Problems (1) Claudication in peripheral vascular disease Assessment/Plan: For left lower ext angiogram, with debridement of ulcer Code(s): I73.9 - PERIPHERAL VASCULAR DISEASE, UNSPECIFIED
[2019-06-09] MEDS ORDERED: INSULIN REGULAR HUMAN 100 UNITS/ML *VIAL SQ ONE (13:14)
[2019-06-09] MEDS ORDERED: INSULIN (LEVEMIR) 100 UNITS/ML UNITS SQ ONE (13:40)
[2019-06-09] MEDS ORDERED: LIDOCAINE HCL 1%, 10 MG/ML (20ML VIAL) ONE (15:13)
[2019-06-09] MEDS ORDERED: MIDAZOLAM HCL 2 MG/2 ML SINGLE DOSE VIAL ONE (15:54)
[2019-06-09] MEDS ORDERED: ceFAZolin SODIUM 1 GM VIAL IVPB ONE (16:05)
[2019-06-09] MEDS ORDERED: EPHEDRINE SULFATE/0.9% NACL/PF 50 MG/10 ML SYRINGE NR ONE (16:05)
[2019-06-09] MEDS ORDERED: PROPOFOL 20 ML ONE ×2 (16:06→16:49)
[2019-06-09] MEDS ORDERED: LIDOCAINE HCL 1%, 10 MG/ML (20ML VIAL) PNB ONE (16:18)
[2019-06-09] MEDS ORDERED: HEPARIN NA (PORCINE) 5,000 UNITS/ML 1ML VIAL IV ONE (16:26)
[2019-06-09] MEDS ORDERED: PROTAMINE SULFATE 50 MG/5 ML VIAL ONE ×2 (16:41→16:50)
[2019-06-09] MEDS ORDERED: HEPARIN NA (PORCINE) 5,000 UNITS/ML 1ML VIAL ONE (16:50)
[2019-06-09] MEDS ORDERED: PHENYLEPHRINE HCL 10 MG/1 ML SINGLE DOSE VIAL ONE (16:50)
[2019-06-09] MEDS ORDERED: LIDOCAINE HCL/PF 2% SDV 5ML VIAL ONE (16:50)
--- NOTE | 2019-06-09 17:22 | OP ---
Operative Note - Note: Operative Date: 06/09/19 Pre-Operative Diagnosis: Left lower ext ulcer, claudication Operation: CO2 Aortogram, left lower extremity angiogram Findings: SFA occlusion Pt needs bypass Post-Operative Diagnosis: Same as Pre-op Surgeon: Mesfin Rod Anesthesia: Fractional Estimated Blood Loss (mls): 50 Operative Report Dictated: Yes
[2019-06-09] MEDS ORDERED: ONDANSETRON 4 MG/2 ML VIAL IVPUSH PRN (17:27)
[2019-06-09] MEDS ORDERED: SODIUM CHLORIDE 1,000 ML IV SCH (17:30)
[2019-06-09] MEDS: oxyCODONE HCL 5 MG TABLET PO PRN (21:07)
[2019-06-09] MEDS: ACETAMINOPHEN 325 MG TABLET (FP) PO PRN (21:09)
[2019-06-09] MEDS ORDERED: ATORVASTATIN CA 80 MG TABLET (FP) PO SCH (22:00)
[2019-06-09] MEDS ORDERED: ZOLPIDEM TARTRATE 5 MG TABLET PO PRN (22:00)
[2019-06-09] MEDS ORDERED: TAMSULOSIN HCL 0.4 MG CAP PO SCH (22:00)
[2019-06-09] MEDS ORDERED: metoPROLOL SUCCINATE 25 MG TAB.SR.24H (FP) PO SCH (22:00)
[2019-06-09] MEDS ORDERED: SODIUM CHLORIDE 1,000 ML IV STA (23:14)
[2019-06-09 23:23] LABS: HEMATOCRIT 26.1 % (35.4-49); HEMOGLOBIN 8.7 GM/dL (11.7-16.9); MCHC 33.4 g/dl (32.0-35.9); MEAN CELL VOLUME 83.6 fl (80-96); MEAN PLT VOLUME 10.2 fl (7.5-11.1); PLATELET COUNT 138 K/MM3 (134-434); RBC 3.12 M/mm3 (4.00-5.60); RDW 14.3 % (11.9-15.9)
[2019-06-09 23:52] LABS: ALBUMIN 3.2 g/dl (3.4-5.0); BILIRUBIN,TOTAL 0.4 mg/dL (0.2-1); BLOOD UREA NITROGEN 31.9 mg/dL (7-18); CALCIUM 7.8 mg/dL (8.5-10.1); CREATININE 1.7 mg/dL (0.55-1.3); POTASSIUM 5.1 mmol/L (3.5-5.1); TOT PROT 6.3 g/dl (6.4-8.2)
[2019-06-10] MEDS: oxyCODONE HCL 5 MG TABLET PO PRN (02:34)
[2019-06-10] MEDS: ACETAMINOPHEN 325 MG TABLET (FP) PO PRN (02:34)
--- NOTE | 2019-06-10 02:36 | PN ---
Teaching Attending Note Name of Resident: Iman Russell ATTENDING PHYSICIAN STATEMENT I saw and evaluated the patient. I reviewed the resident's note and discussed the case with the resident. I agree with the resident's findings and plan as documented. SUBJECTIVE: 63yo man with ckd, cad sp cabg in , dm, htn pvd s/p CO2 Aortogram, left lower extremity angiogram 06/09, found to have SFA occlusion, s/p stent placement. Patient shortly post op developed right flank, ant abdominal pain and and developed hypotension and tachycardia. CT abd/pelvis showed right extensive hematoma about 10 x11 cm n my read adjacent to right psoas muscle and kidney. Pt reports that he took aspirin and plavix the night before procedure. Dr. Rod was called and aware of complication. OBJECTIVE: Last Vital Signs Temp Pulse Resp BP Pulse Ox 99.9 F H 93 H 18 107/57 L 97 06/10/19 01:52 06/10/19 01:52 06/10/19 01:52 06/10/19 01:52 06/09/19 19:40 gen - drowsy heent- clear sclera neck supple cv-s1+s2+ chest clear abdomen - rlq, flank tenderness Abnormal Lab Results 06/09/19 06/09/19 06/09/19 22:55 22:55 22:55 WBC 12.0 H RBC 3.12 L Hgb 8.7 L Hct 26.1 L D Chloride 111 H Anion Gap 6 L BUN 31.9 H Creatinine 1.7 H Random Glucose 272 H Lactic Acid 2.3 H* Calcium 7.8 L AST 13 L Total Protein 6.3 L Albumin 3.2 L Crossmatch 06/10/19 02:00 WBC RBC Hgb Hct Chloride Anion Gap BUN Creatinine Random Glucose Lactic Acid Calcium AST Total Protein Albumin Crossmatch See Detail ct of abd/pelvis - reviewed ASSESSMENT AND PLAN: right retroperitoneal hemorrahage s/p angiography, sfa stent placement with alterations in hemodynamics. asa and plavix night before procedure so more prone to bleeds. Dr. Rod aware. I explained risks and benefits of blood/ platelet transfusion to patient in [place], his [place] language and he agrees for transfusion. -transfer to icu for close monitoring -2 units prbc -1 unit platelets -iv fluid hydration -type and screen, pt/ptt -monitor VS closely -repeat ct of abd/pelvis to ensure hematoma is not expanding -avoid antiplatelets and heparin -vascular surgery f/u
--- NOTE | 2019-06-10 02:44 | CONSULT ---
Consultation: REQUESTING PROVIDER: CONSULT REQUEST: We have been asked to medically evaluate this patient for ICU HISTORY OF PRESENT ILLNESS: HISTORY obtained using language translator # [id number] 63 yo M PMH of CAD (CABGx3, PCI),HTN, HLD, DM, b/l Endarterectomy, Hyperlipidemia, DM type 2, CHF, anemia, CKD, PVD. Pt recently had a left lower extremity angiogram 06/09/19, found to have SFA occlusion, s/p stent placement. Shortly following the procedure, patient developed right flank/ abdominal pain w / hypotension and tachycardia. Preliminary CT abd/pelvis read as right extensive hematoma about 10 x11 cm adjacent to right psoas muscle and kidney. Pt reports that he took aspirin and plavix the night before procedure. Dr. Rod was called and aware of complication. Pt states he is currently having R back pain 06/16, non radiating. pt states the pain began shortly after the procedure and never had any similar pains in the past. pt endorses dizziness. pt denies n/v. pt REVIEW OF SYSTEMS: CONSTITUTIONAL: Absent: fever, chills, diaphoresis, generalized weakness, malaise, loss of appetite, weight change HEENT: Absent: rhinorrhea, nasal congestion, throat pain, throat swelling, difficulty swallowing, mouth swelling, ear pain, eye pain, visual changes CARDIOVASCULAR: Present: lightheadedness Absent: chest pain, syncope, palpitations, irregular heart rate, peripheral edema RESPIRATORY: Absent: cough, shortness of breath, dyspnea with exertion, orthopnea, wheezing, stridor, hemoptysis GASTROINTESTINAL: Present: abdominal pain Absent: abdominal distension, nausea, vomiting, diarrhea, constipation, melena, hematochezia GENITOURINARY: Absent: dysuria, frequency, urgency, hesitancy, hematuria, flank pain, genital pain MUSCULOSKELETAL: Present: back pain, LLE pain, numbness, tingling Absent: myalgia, arthralgia, joint swelling, back pain, neck pain SKIN: Absent: rash, itching, pallor HEMATOLOGIC/IMMUNOLOGIC: Absent: easy bleeding, easy bruising, lymphadenopathy, frequent infections ENDOCRINE: Absent: unexplained weight gain, unexplained weight loss, heat intolerance, cold intolerance NEUROLOGIC: Present: dizziness Absent: headache, focal weakness or paresthesias, unsteady gait, seizure, mental status changes, bladder or bowel incontinence PSYCHIATRIC: Absent: anxiety, depression, suicidal or homicidal ideation, hallucinations. PHYSICAL EXAMINATION Vital Signs - 24 hr 06/10/19 06/10/19 01:02 01:52 Temperature 98.3 F 99.9 F H Pulse Rate 79 93 H Respiratory 20 18 Rate Blood Pressure 132/71 107/57 L O2 Sat by Pulse Oximetry (%) GENERAL: Awake, alert, and fully oriented, in no acute distress. HEAD: Normal with no signs of trauma. EYES: Pupils equal, round and reactive to light, extraocular movements intact, sclera anicteric, conjunctiva clear EARS, NOSE, THROAT: Ears normal, nares patent, oropharynx clear without exudates. Moist mucous membranes. NECK: Normal range of motion, supple without lymphadenopathy, JVD, or masses. LUNGS: Breath sounds equal, clear to auscultation bilaterally. No wheezes, and no crackles. No accessory muscle use. HEART: tachycardic and regular rhythm, normal S1 and S2 ABDOMEN: Soft, tender to palpation RLQ>RUQ, not distended, normoactive bowel sounds, + guarding MUSCULOSKELETAL: Normal range of motion at all joints. No bony deformities or tenderness. UPPER EXTREMITIES: 2+ pulses, warm, well-perfused. No cyanosis. No clubbing. Cap refill <2 seconds. No peripheral edema. LOWER EXTREMITIES: 2+ pulses, warm, well-perfused. No calf tenderness. No peripheral edema. NEUROLOGICAL: Cranial nerves II-XII intact. Normal speech. Normal gait. SKIN: Warm, dry, normal turgor, no rashes or lesions noted. Laboratory Last Values WBC 12.0 K/mm3 (4.0-10.0) H 06/09/19 22:55 RBC 3.12 M/mm3 (4.00-5.60) L 06/09/19 22:55 Hgb 8.7 GM/dL (11.7-16.9) L 06/09/19 22:55 Hct 26.1 % (35.4-49) L D 06/09/19 22:55 MCV 83.6 fl (80-96) 06/09/19 22:55 MCH 28.0 pg (25.7-33.7) 06/09/19 22:55 MCHC 33.4 g/dl (32.0-35.9) 06/09/19 22:55 RDW 14.3 % (11.9-15.9) 06/09/19 22:55 Plt Count 138 K/MM3 (134-434) 06/09/19 22:55 MPV 10.2 fl (7.5-11.1) 06/09/19 22:55 Sodium 141 mmol/L (136-145) 06/09/19 22:55 Potassium 5.1 mmol/L (3.5-5.1) 06/09/19 22:55 Chloride 111 mmol/L (98-107) H 06/09/19 22:55 Carbon Dioxide 24 mmol/L (21-32) 06/09/19 22:55 Anion Gap 6 MMOL/L (8-16) L 06/09/19 22:55 BUN 31.9 mg/dL (7-18) H 06/09/19 22:55 Creatinine 1.7 mg/dL (0.55-1.3) H 06/09/19 22:55 Est GFR (CKD-EPI)AfAm 48.66 06/09/19 22:55 Est GFR (CKD-EPI)NonAf 41.98 06/09/19 22:55 POC Glucometer 250 UNITS (80-120) 06/09/19 17:14 Random Glucose 272 mg/dL (74-106) H 06/09/19 22:55 Lactic Acid 2.3 mmol/L (0.4-2.0) H* 06/09/19 22:55 Calcium 7.8 mg/dL (8.5-10.1) L 06/09/19 22:55 Total Bilirubin 0.4 mg/dL (0.2-1) 06/09/19 22:55 AST 13 U/L (15-37) L 06/09/19 22:55 ALT 15 U/L (13-61) 06/09/19 22:55 Alkaline Phosphatase 98 U/L (45-117) 06/09/19 22:55 Total Protein 6.3 g/dl (6.4-8.2) L 06/09/19 22:55 Albumin 3.2 g/dl (3.4-5.0) L 06/09/19 22:55 Crossmatch See Detail 06/10/19 02:00 Current Medications Acetaminophen (Tylenol -) 325 mg PO Q6H PRN PRN Reason: PAIN LEVEL 5-10 Last Admin: 06/10/19 02:34 Dose: 325 mg Amlodipine Besylate (Norvasc -) 5 mg PO DAILY [facility] Aspirin (Asa -) 81 mg PO DAILY [facility] Atorvastatin Calcium (Lipitor -) 80 mg PO HS [facility] Last Admin: 06/09/19 21:09 Dose: 80 mg Chlorhexidine Gluconate (Hibiclens For Decolonization -) 1 applic TP HS [facility] Clopidogrel Bisulfate (Plavix -) 75 mg PO DAILY [facility] Collagenase (Santyl -) 1 applic TP DAILY [facility]; Protocol Fentanyl (Sublimaze Injection -) 25 mcg IVPUSH [id number] PRN PRN Reason: PAIN-PACU ORDER X 4 DOSES ONLY Last Admin: 06/09/19 18:40 Dose: 25 mcg Furosemide (Lasix -) 40 mg PO DAILY [facility] Gabapentin (Neurontin -) 600 mg PO DAILY [facility] Sodium Chloride (Normal Saline -) 1,000 mls @ 42 mls/hr IV ASDIR [facility] Last Admin: 06/09/19 17:30 Dose: 500 mls Insulin Detemir (Levemir Vial) 40 units SQ DAILY@0700 [facility] Losartan Potassium (Cozaar -) 100 mg PO DAILY [facility] Metoprolol Succinate (Toprol Xl -) 25 mg PO BID [facility] Last Admin: 06/09/19 21:08 Dose: 25 mg Mupirocin (Bactroban Ointment (For Decolonization) -) 1 applic NS BID [facility] Stop: 06/15/19 09:59 Ondansetron HCl (Zofran Injection) 4 mg IVPUSH Q6H PRN PRN Reason: NAUSEA AND/OR VOMITING Oxycodone HCl (Roxicodone -) 5 mg PO Q6H PRN PRN Reason: PAIN LEVEL 5-10 Last Admin: 06/10/19 02:34 Dose: 5 mg Tamsulosin HCl (Flomax -) 0.4 mg PO HS [facility] Last Admin: 06/09/19 21:08 Dose: 0.4 mg Zolpidem Tartrate (Ambien -) 10 mg PO HS PRN PRN Reason: INSOMNIA Last Admin: 06/09/19 21:09 Dose: [address] Abd/ pel: there is a large region of intra-abdominal hemorrhage seen in the right pararenal space extending down the right paracolic gutter, abutting the right psoas muscle and extending into the right pelvic region/ right inguinal hernia, most suggestive of a right sided retroperitoneal hemorrhage. The etiology is nonspecific. Small amount of dense fluid in the left abdominopelvic region. ASSESSMENT/PLAN: 63 yo M PMH of CAD (CABGx3, PCI),HTN, HLD, DM, b/l Endarterectomy, Hyperlipidemia, DM type 2, CHF, anemia, CKD, PVD. Pt recently had a left lower extremity angiogram 06/09/19, found to have SFA occlusion, s/p stent placement. Pt is admitted to ICU for close monitoring of intra-abdominal hemorrhage. Neuro: -pt currently AAOx3, endorses dizziness Cardio/ Vasculature: CAD (CABGx3, PCI),HTN, HLD, b/l Endarterectomy, Hyperlipidemia, CHF, PVD. s/p LLE angiogram and SFA stent placement POD 1 -Prelim CT read above, consider rpt imaging to monitor hemorrhage -continue cardiac monitoring -continue monitoring H/H, PTT, INR -hold asa, plavix -Hgb: 10.8-> 7.8; 1 unit pRBC ordered, 2nd on hold; 1 unit platelets ordered -Dr. Marcel jacob appreciated, informed of overnight events/findings -hold antihypertensives in the setting of hypotension ID -pt afebrile -minor leukocytosis , likely reactive -lactate 2.3 -s/p 1g cefazolin Pulm: saturating well on NC Endo: DM -BGM, ISS Heme: acute on chronic anemia -continue to trend CBC -transfuse 1 prbc , 1 plt Nephro: CKD -Cr 1.7 -continue to monitor -avoid nephrotoxic agents F/E/N -s/p 500 ml bolus of NS -monitor lytes -NPO for possible procedure in am Dispo: We will continue to follow the patient. Thank you for this consultative opportunity. Visit type - Emergency Visit Emergency Visit: No - New Patient This patient is new to me today: Yes - Critical Care Critical Care patient: Yes Total Critical Care Time (in minutes): 36 Critical Care Statement: The care of this patient involved high complexity decision making to prevent further life threatening deterioration of the patient 's condition and/or to evaluate & treat vital organ system(s) failure or risk of failure. ATTENDING PHYSICIAN STATEMENT I saw and evaluated the patient. I reviewed the resident's note and discussed the case with the resident. I agree with the resident's findings and plan as documented. SUBJECTIVE: OBJECTIVE: ASSESSMENT AND PLAN:
[2019-06-10 02:59] LABS: HEMATOCRIT 23.4 % (35.4-49); HEMOGLOBIN 7.8 GM/dL (11.7-16.9); MCH 28.2 pg (25.7-33.7); MCHC 33.4 g/dl (32.0-35.9); MEAN CELL VOLUME 84.3 fl (80-96); MEAN PLT VOLUME 11.1 fl (7.5-11.1); PLATELET COUNT 117 K/MM3 (134-434); RBC 2.78 M/mm3 (4.00-5.60); RDW 14.2 % (11.9-15.9); WHITE BLOOD COUNT 9.4 K/mm3 (4.0-10.0)
[2019-06-10] MEDS ORDERED: ZOLPIDEM TARTRATE 5 MG TABLET PO PRN ×2 (03:19→18:40)
[2019-06-10] MEDS ORDERED: ONDANSETRON 4 MG/2 ML VIAL IVPUSH PRN ×3 (03:19→20:29)
[2019-06-10] MEDS ORDERED: oxyCODONE HCL 5 MG TABLET PO PRN ×3 (03:19→20:29)
[2019-06-10] MEDS ORDERED: ACETAMINOPHEN 325 MG TABLET (FP) PO PRN ×3 (03:19→20:29)
[2019-06-10] MEDS ORDERED: SODIUM CHLORIDE 1,000 ML IV SCH (03:19)
[2019-06-10] MEDS ORDERED: INSULIN REGULAR HUMAN 100 UNITS/ML *VIAL SQ ONE (03:19)
[2019-06-10 03:20] LABS: INR 1.16 (0.83-1.09); PROTHROMBIN TIME (PATIENT) 13.7 SEC (9.7-13.0)
[2019-06-10] MEDS ORDERED: ACETAMINOPHEN 1000 MG/100 ML VIAL (NON FORMULARY) IVPB PRN ×3 (03:24→20:29)
--- NOTE | 2019-06-10 03:30 | CONSULT ---
Consultation: REQUESTING PROVIDER: Dr. Mesfin Rod CONSULT REQUEST: We have been asked to medically evaluate this patient for ( specify). HISTORY OF PRESENT ILLNESS: 63 y.o. M PMH CAD (3x CABG), systolic CHFrEF, carotid enddarterectomy, HTN, HLD , PAD, CKD, asthma, fibromyalgia, DM type 2, BPH, anemia, depression s/p LLE angiography w/ angioplasty & stent placement for SFA occlusion as well as I&D of LLE ulcer today with Dr. Rod (POD#0). Vascular procedure was non- complicated; pt received 1g cefazolin for operative abx coverage. Patient now c/ o 10/10 RLQ abdominal and R-sided back pain. The pain was sudden in onset and occurred about 1 hour after the procedure. Medicine night team was paged for pt's abdominal pain. On arrival, patient was having 10/10 RLQ abdominal and back pain. Pt was hypotensive to 68/49, afebrile , normocardic. 500mL bolus NS was started, BP subsequently improved but pain persisted. CT abd/ pel without contrast was ordered. REVIEW OF SYSTEMS: CONSTITUTIONAL: Absent: fever, chills, diaphoresis, generalized weakness, malaise, loss of appetite, weight change HEENT: Absent: rhinorrhea, nasal congestion, throat pain, throat swelling, difficulty swallowing, mouth swelling, ear pain, eye pain, visual changes CARDIOVASCULAR: Absent: chest pain, syncope, palpitations, irregular heart rate, lightheadedness , peripheral edema RESPIRATORY: Absent: cough, shortness of breath, dyspnea with exertion, orthopnea, wheezing, stridor, hemoptysis GASTROINTESTINAL: abdominal pain Absent: abdominal distension, nausea, vomiting, diarrhea, constipation, melena, hematochezia GENITOURINARY: Absent: dysuria, frequency, urgency, hesitancy, hematuria, flank pain, genital pain MUSCULOSKELETAL: Absent: myalgia, arthralgia, joint swelling, back pain, neck pain SKIN: Absent: rash, itching, pallor HEMATOLOGIC/IMMUNOLOGIC: Absent: easy bleeding, easy bruising, lymphadenopathy, frequent infections ENDOCRINE: Absent: unexplained weight gain, unexplained weight loss, heat intolerance, cold intolerance NEUROLOGIC: Absent: headache, focal weakness or paresthesias, dizziness, unsteady gait, seizure, mental status changes, bladder or bowel incontinence PSYCHIATRIC: Absent: anxiety, depression, suicidal or homicidal ideation, hallucinations. PHYSICAL EXAMINATION Vital Signs - 24 hr 06/09/19 06/09/19 06/09/19 09:00 11:50 11:57 Temperature 98.2 F 97.5 F L 97.5 F L Pulse Rate 86 77 77 Respiratory 20 20 20 Rate Blood Pressure 132/71 143/83 143/83 O2 Sat by Pulse 97 Oximetry (%) 06/09/19 06/09/19 06/09/19 17:05 17:15 17:30 Temperature 97.8 F Pulse Rate 76 78 75 Respiratory 10 15 11 Rate Blood Pressure 103/71 90/58 L 81/61 L O2 Sat by Pulse 99 100 100 Oximetry (%) 06/09/19 06/09/19 06/09/19 17:35 17:42 17:45 Temperature Pulse Rate 72 71 72 Respiratory 12 15 12 Rate Blood Pressure 83/63 L 74/58 L 101/63 O2 Sat by Pulse 100 100 100 Oximetry (%) 06/09/19 06/09/19 06/09/19 17:48 17:51 17:54 Temperature Pulse Rate 71 71 70 Respiratory 12 14 12 Rate Blood Pressure 113/68 100/63 93/62 O2 Sat by Pulse 100 99 100 Oximetry (%) 06/09/19 06/09/19 06/09/19 17:57 18:00 18:03 Temperature Pulse Rate 67 68 68 Respiratory 8 L 11 17 Rate Blood Pressure 104/62 105/66 120/63 O2 Sat by Pulse 100 100 98 Oximetry (%) 06/09/19 06/09/19 06/09/19 18:06 18:09 18:15 Temperature Pulse Rate 70 72 69 Respiratory 16 16 16 Rate Blood Pressure 119/66 119/66 120/70 O2 Sat by Pulse 100 100 100 Oximetry (%) 06/09/19 06/09/19 06/09/19 18:30 18:45 19:00 Temperature Pulse Rate 67 67 68 Respiratory 16 14 11 Rate Blood Pressure 141/67 146/72 131/74 O2 Sat by Pulse 100 100 100 Oximetry (%) 06/09/19 06/09/19 06/09/19 19:15 19:40 21:40 Temperature 97.8 F 97.7 F 98.2 F Pulse Rate 66 74 86 Respiratory 16 20 20 Rate Blood Pressure 140/74 138/76 132/71 O2 Sat by Pulse 98 97 Oximetry (%) 06/09/19 06/09/19 06/09/19 22:00 22:21 23:39 Temperature 97.9 F Pulse Rate 79 Respiratory 20 Rate Blood Pressure 68/49 L 95/65 134/70 O2 Sat by Pulse Oximetry (%) 06/10/19 06/10/19 01:02 01:52 Temperature 98.3 F 99.9 F H Pulse Rate 79 93 H Respiratory 20 18 Rate Blood Pressure 132/71 107/57 L O2 Sat by Pulse Oximetry (%) GENERAL: AOx3. In distress d/t pain HEENT: Sclera anicteric. No conjunctival pallor. LUNGS: CTABL. No wheezing/ crackles HEART: RRR. S1S2 heard. No murmurs ABDOMEN: Exquisitely tender to palpation RLQ. + guarding & rebound. Soft. Nondistended. Bowel sounds +. MUSCULOSKELETAL: Right lower back tenderness to palpation. UPPER EXTREMITIES: 2+ pulses present, no edema LOWER EXTREMITIES: 2+ pulses present. LLE tenderness to palpation. Surgical site @ L groin C/D/I. Laboratory Results - last 24 hr 06/09/19 06/09/19 06/09/19 12:03 15:05 17:14 WBC RBC Hgb Hct MCV MCH MCHC RDW Plt Count MPV Sodium Potassium Chloride Carbon Dioxide Anion Gap BUN Creatinine Est GFR (CKD-EPI)AfAm Est GFR (CKD-EPI)NonAf POC Glucometer 360 282 250 Random Glucose Lactic Acid Calcium Total Bilirubin AST ALT Alkaline Phosphatase Total Protein Albumin Blood Type Antibody Screen Crossmatch 06/09/19 06/09/19 06/09/19 22:55 22:55 22:55 WBC 12.0 H RBC 3.12 L Hgb 8.7 L Hct 26.1 L D MCV 83.6 MCH 28.0 MCHC 33.4 RDW 14.3 Plt Count 138 MPV 10.2 Sodium 141 Potassium 5.1 Chloride 111 H Carbon Dioxide 24 Anion Gap 6 L BUN 31.9 H Creatinine 1.7 H Est GFR (CKD-EPI)AfAm 48.66 Est GFR (CKD-EPI)NonAf 41.98 POC Glucometer Random Glucose 272 H Lactic Acid 2.3 H* Calcium 7.8 L Total Bilirubin 0.4 AST 13 L ALT 15 Alkaline Phosphatase 98 Total Protein 6.3 L Albumin 3.2 L Blood Type Antibody Screen Crossmatch 06/10/19 06/10/19 02:00 02:45 WBC 9.4 RBC 2.78 L Hgb 7.8 L Hct 23.4 L MCV 84.3 MCH 28.2 MCHC 33.4 RDW 14.2 Plt Count 117 L MPV 11.1 Sodium Potassium Chloride Carbon Dioxide Anion Gap BUN Creatinine Est GFR (CKD-EPI)AfAm Est GFR (CKD-EPI)NonAf POC Glucometer Random Glucose Lactic Acid Calcium Total Bilirubin AST ALT Alkaline Phosphatase Total Protein Albumin Blood Type O POSITIVE Antibody Screen Negative Crossmatch See Detail Active Medications Generic Name Dose Route Start Last Admin Trade Name Freq PRN Reason Stop Dose Admin Acetaminophen 325 mg 06/09/19 20:50 06/10/19 02:34 Tylenol - PO 325 mg Q6H PRN Administration PAIN LEVEL 5-10 Amlodipine Besylate 5 mg 06/10/19 10:00 Norvasc - PO DAILY [facility] Aspirin 81 mg 06/10/19 10:00 Asa - PO DAILY [facility] Atorvastatin Calcium 80 mg 06/09/19 22:00 06/09/19 21:09 Lipitor - PO 80 mg HS [facility] Administration Chlorhexidine Gluconate 1 applic 06/10/19 22:00 Hibiclens For Decolonization - TP HS [facility] Clopidogrel Bisulfate 75 mg 06/10/19 10:00 Plavix - PO DAILY [facility] Collagenase 1 applic 06/10/19 10:00 Santyl - TP DAILY [facility] Protocol Fentanyl 25 mcg 06/09/19 17:27 06/09/19 18:40 Sublimaze Injection - IVPUSH 25 mcg [id number] PRN Administration PAIN-PACU ORDER X 4 DOSES ONLY Furosemide 40 mg 06/10/19 10:00 Lasix - PO DAILY [facility] Gabapentin 600 mg 06/10/19 10:00 Neurontin - PO DAILY [facility] Sodium Chloride 1,000 mls @ 42 mls/hr 06/09/19 17:30 06/09/19 17:30 Normal Saline - IV 500 mls ASDIR [facility] Administration Insulin Detemir 40 units 06/10/19 07:00 Levemir Vial SQ DAILY@0700 [facility] Losartan Potassium 100 mg 06/10/19 10:00 Cozaar - PO DAILY [facility] Metoprolol Succinate 25 mg 06/09/19 22:00 06/09/19 21:08 Toprol Xl - PO 25 mg BID [facility] Administration Mupirocin 1 applic 06/10/19 10:00 Bactroban Ointment (For Decolonization) - NS 06/15/19 09:59 BID [facility] Ondansetron HCl 4 mg 06/09/19 17:27 Zofran Injection IVPUSH Q6H PRN NAUSEA AND/OR VOMITING Oxycodone HCl 5 mg 06/09/19 20:50 06/10/19 02:34 Roxicodone - PO 5 mg Q6H PRN Administration PAIN LEVEL 5-10 Tamsulosin HCl 0.4 mg 06/09/19 22:00 06/09/19 21:08 Flomax - PO 0.4 mg HS [facility] Administration Zolpidem Tartrate 10 mg 06/09/19 22:00 06/09/19 21:09 Ambien - PO 10 mg HS PRN Administration INSOMNIA CT Abd/ pel: there is a large region of intra-abdominal hemorrhage seen in the right pararenal space extending down the right paracolic gutter, abutting the right psoas muscle and extending into the right pelvic region/ right inguinal hernia, most suggestive of a right sided retroperitoneal hemorrhage. The etiology is nonspecific. Small amount of dense fluid in the left abdominopelvic region. ASSESSMENT/PLAN: 63 y.o. M PMH CAD (3x CABG), systolic CHFrEF, carotid enddarterectomy, HTN, HLD , PAD, CKD, asthma, fibromyalgia, DM type 2, BPH, anemia, depression s/p LLE angiography w/ angioplasty & stent placement for SFA occlusion as well as I&D of LLE ulcer today (POD#0). #Right retroperitoneal hemorrhage -CT abd/ pelvis read as above -Hgb: 10.8--> 8.7 --> 7.8;; 1 unit pRBC ordered, 2nd on hold; 1 unit platelets ordered -500mL NS given -Given percocet 5mg, 325mg tylenol -Holding ASA & Plavix -CBCs q6h; f/u AM CMP -Dr. Rod aware -Transferring to ICU for close monitoring #PAD -S/p LLE angiography w/ angioplasty & stent placement for SFA occlusion today post op day #0 -F/u in wound clinic outpatient for LLE ulcer-- s/p I&D today #CAD s/p [place], w/ prior PCI -Holding ASA & plavix -Crestor d/c'd #CHF -C/w lasix 40mg PO daily -recent echo shows EF 45-50% #HTN -Holding anti HTN meds (metoprolol) -Amlodipine d/c'd by Dr. Saleem 1 mo. ago -No JANELLE/ARB d/t CKD #HLD -C/w atorvastatin 80mg PO @ bedtime #CKD -No JANELLE/ARB d/t CKD #DM2 -ISS -BGMs -C/w long acting insulin 30U SQ #Anemia -C/w Feosol #BPH -C/w tamsulosin-- if hypotensive, hold #Depression -Pt takes ambien @ home-- holding while inpatient #FEN -NS @ 42mL/ hr -Trend lytes; trend h&h -diabetic diet #Pain control -oxycodone 5mg PO q6h PRN -Tylenol 325mg PO q6h PRN #DVT PPX -active bleed, hold AC Dispo: We will continue to follow the patient. Thank you for this consultative opportunity. Visit type - Emergency Visit Emergency Visit: Yes Care time: The patient presented to the Emergency Department on the above date and was hospitalized for further evaluation of their emergent condition. - New Patient This patient is new to me today: Yes Date on this admission: 06/10/19 - Critical Care Critical Care patient: Yes Total Critical Care Time (in minutes): 42 Critical Care Statement: The care of this patient involved high complexity decision making to prevent further life threatening deterioration of the patient 's condition and/or to evaluate & treat vital organ system(s) failure or risk of failure. ATTENDING PHYSICIAN STATEMENT I saw and evaluated the patient. I reviewed the resident's note and discussed the case with the resident. I agree with the resident's findings and plan as documented. SUBJECTIVE: OBJECTIVE: ASSESSMENT AND PLAN:
[2019-06-10 06:44] LABS: HEMATOCRIT 23.1 % (35.4-49); MCH 29.1 pg (25.7-33.7); MCHC 34.8 g/dl (32.0-35.9); MEAN CELL VOLUME 83.8 fl (80-96); PLATELET COUNT 107 K/MM3 (134-434); RBC 2.76 M/mm3 (4.00-5.60); RDW 14.4 % (11.9-15.9); WHITE BLOOD COUNT 8.4 K/mm3 (4.0-10.0)
[2019-06-10] MEDS ORDERED: INSULIN (LEVEMIR) 100 UNITS/ML UNITS SQ SCH ×3 (07:00)
[2019-06-10] MEDS ORDERED: INSULIN SLIDING SCALE (NOVOLOG) 1 VIAL SQ SCH (07:00)
[2019-06-10 07:31] LABS: ALBUMIN 2.8 g/dl (3.4-5.0); BILIRUBIN,TOTAL 0.4 mg/dL (0.2-1); BLOOD UREA NITROGEN 36.1 mg/dL (7-18); CALCIUM 7.2 mg/dL (8.5-10.1); MAGNESIUM 1.4 mg/dL (1.8-2.4); PHOSPHOROUS 3.2 mg/dL (2.5-4.9); POTASSIUM 5.9 mmol/L (3.5-5.1); TOT PROT 5.6 g/dl (6.4-8.2)
[2019-06-10] MEDS ORDERED: INSULIN REGULAR HUMAN 100 UNITS/ML *VIAL IVPUSH ONE ×2 (07:48→08:26)
[2019-06-10] MEDS ORDERED: MAGNESIUM SULF 50% (8.12 MEQ/2 ML-1 GM VIAL) IVPB ONE (07:50)
[2019-06-10] MEDS ORDERED: INSULIN (NOVOLOG) ASPART 100 UNITS/ML 10ML VIAL ONE (08:14)
--- NOTE | 2019-06-10 08:24 | PN ---
Progress Note (short form) - Note Progress Note: 63yo M s/p LLE angiogram with subsequent RLQ retroperitoneal bleed. Pt was admitted last night for observation and received a unit of prbcs. Pt was stable overnight according to ICU team. This AM pt complains of RLQ abd pain. Denies fever, chills, n/v, cp, sob. Last Vital Signs Temp Pulse Resp BP Pulse Ox 98.2 F 81 17 113/64 97 06/10/19 06:00 06/10/19 06:00 06/10/19 06:00 06/10/19 06:00 06/10/19 02:45 CBC, BMP 06/10/19 06:10 06/10/19 06:10 PE: Gen: A&O X3 Resp: breathing comfortably Abd: moderate RLQ tenderness, mild distension, no ecymosis or skin changes, incision site clean with no erythema. Ext: no edema Problem List - Problems (1) Retroperitoneal bleed Assessment/Plan: Plan -pt appears to remain stable, will continue to observe for pain/discomfort, but if improving will consider discharge home today. -trend h/h -oob/ambulate -glycemic control Code(s): R58 - HEMORRHAGE, NOT ELSEWHERE CLASSIFIED
[2019-06-10] MEDS: ALBUTEROL SO4 2.5/IPRATROPIUM 0.5 INH SOL 3 ML VIAL.NEB. NEB SCH ×4 (08:45→22:34)
[2019-06-10] MEDS: ALBUTEROL SO4 0.083% IH SOL 2.5 MG/3 ML VIAL.NEB. NEB SCH ×2 (08:45)
[2019-06-10] MEDS ORDERED: metoPROLOL SUCCINATE 25 MG TAB.SR.24H (FP) PO SCH ×2 (10:00→22:00)
[2019-06-10] MEDS ORDERED: COLLAGENASE CLOSTRIDIUM HIST. 30 GRAMS TUBE TP SCH ×2 (10:00)
[2019-06-10] MEDS ORDERED: MULTIVITAMINS (DAILY MVI) TABLET (FP) PO SCH (10:00)
[2019-06-10] MEDS ORDERED: ASPIRIN 81 MG CHEWABLE TABLETS PO SCH ×2 (10:00)
[2019-06-10] MEDS ORDERED: FERROUS SO4 325 MG TABLET (FP) PO SCH (10:00)
[2019-06-10] MEDS ORDERED: FOLIC ACID 1 MG TABLET (FP) PO SCH (10:00)
[2019-06-10] MEDS ORDERED: FUROSEMIDE 40 MG TABLET (FP) PO SCH ×2 (10:00)
[2019-06-10] MEDS ORDERED: CLOPIDOGREL BISULFATE 75 MG TABLET (FP) PO SCH ×2 (10:00)
[2019-06-10] MEDS ORDERED: amLODIPine BESYLATE 5 MG TABLET (FP) PO SCH ×3 (10:00)
[2019-06-10] MEDS ORDERED: GABAPENTIN 300 MG CAPSULE (FP) PO SCH ×2 (10:00)
[2019-06-10] MEDS ORDERED: MUPIROCIN 2% TOPICAL OINTMENT FOR DECOLONIZATION NS SCH ×3 (10:00→22:00)
[2019-06-10] MEDS ORDERED: LOSARTAN POTASSIUM 50 MG TABLET (FP) PO SCH ×3 (10:00)
[2019-06-10] MEDS ORDERED: INSULIN (NOVOLOG) ASPART 100 UNITS/ML 10ML VIAL SQ ONE (10:45)
--- NOTE | 2019-06-10 11:21 | PN ---
Teaching Attending Note Name of Resident: Russell Muhammad ATTENDING PHYSICIAN STATEMENT I saw and evaluated the patient. I reviewed the resident's note and discussed the case with the resident. I agree with the resident's findings and plan as documented. SUBJECTIVE: Patient seen and examined in the ICU. Awake and alert. RLQ pain is better today 10/27. No CP or SOB. Intake & Output 06/07/19 06/08/19 06/09/19 06/10/19 23:59 23:59 23:59 23:59 Intake Total 1000 350 Balance 1000 350 Weight 170 lb 170 lb 170 lb Last Vital Signs Temp Pulse Resp BP Pulse Ox 98.2 F 81 17 113/64 97 06/10/19 06:00 06/10/19 06:00 06/10/19 06:00 06/10/19 06:00 06/10/19 02:45 Active Medications Acetaminophen (Tylenol -) 325 mg PO Q6H PRN PRN Reason: PAIN LEVEL 5-10 Acetaminophen (Ofirmev Injection -) 1,000 mg IVPB Q6H PRN PRN Reason: PAIN OR FEVER Albuterol/Ipratropium (Duoneb -) 1 amp NEB RQID [facility] [place] Aspirin (Asa -) 81 mg PO DAILY [facility] [place] Atorvastatin Calcium (Lipitor -) 80 mg PO HS [facility] Chlorhexidine Gluconate (Hibiclens For Decolonization -) 1 applic TP HS [facility] Clopidogrel Bisulfate (Plavix -) 75 mg PO DAILY [facility] [place] Collagenase (Santyl -) 1 applic TP DAILY [facility] [place]; Protocol Ferrous Sulfate (Feosol -) 325 mg PO DAILY [facility] [place] Last Admin: 06/10/19 09:56 Dose: 325 mg Folic Acid (Folic Acid -) 1 mg PO DAILY [facility] [place] Last Admin: 06/10/19 09:58 Dose: 1 mg Furosemide (Lasix -) 40 mg PO DAILY [facility] [place] Gabapentin (Neurontin -) 600 mg PO DAILY [facility] [place] Last Admin: 06/10/19 09:57 Dose: 600 mg Insulin Aspart (Novolog Vial Sliding Scale -) 1 vial SQ TIDAC [facility] [place]; Protocol Insulin Aspart (Novolog Vial) 10 units SQ ONCE ONE; Protocol Stop: 06/10/19 10:46 Metoprolol Succinate (Toprol Xl -) 25 mg PO BID [facility] [place] Multivitamins/Minerals/Vitamin C (Tab-A-Vit -) 1 tab PO DAILY [facility] [place] Last Admin: 06/10/19 09:59 Dose: 1 tab Mupirocin (Bactroban Ointment (For Decolonization) -) 1 applic NS BID [facility] [place] Stop: 06/15/19 09:59 Ondansetron HCl (Zofran Injection) 4 mg IVPUSH Q6H PRN PRN Reason: NAUSEA AND/OR VOMITING Oxycodone HCl (Roxicodone -) 5 mg PO Q6H PRN PRN Reason: PAIN LEVEL 5-10 Ranitidine HCl (Zantac -) 150 mg PO HS [facility] Tamsulosin HCl (Flomax -) 0.4 mg PO HS [facility] Zolpidem Tartrate (Ambien -) 10 mg PO HS PRN PRN Reason: INSOMNIA GENERAL: Awake, alert, and oriented, NAD HEAD: Normal with no signs of trauma. EYES: Pupils equal, round and reactive to light, sclera anicteric, conjunctiva clear EARS, NOSE, THROAT: Ears normal, nares patent, oropharynx clear without exudates. Moist mucous membranes. NECK: Normal range of motion, supple without lymphadenopathy, JVD, or masses. LUNGS: Breath sounds equal, clear to auscultation bilaterally. No wheezes, and no crackles. No accessory muscle use. HEART: S1 and S2 ABDOMEN: Soft, tender to palpation RLQ, not distended, normoactive bowel sounds , + guarding MUSCULOSKELETAL: Normal range of motion at all joints. No bony deformities or tenderness. UPPER EXTREMITIES: 2+ pulses, warm, well-perfused. No cyanosis. No clubbing. Cap refill <2 seconds. No peripheral edema. LOWER EXTREMITIES: 2+ pulses, warm, well-perfused. No calf tenderness. No peripheral edema. NEUROLOGICAL: Non-focal SKIN: Warm, dry, normal turgor, no rashes or lesions noted. Laboratory Results - last 24 hr 06/09/19 06/09/19 06/09/19 12:03 15:05 17:14 WBC RBC Hgb Hct MCV MCH MCHC RDW Plt Count MPV PT with INR INR PTT (Actin FS) Sodium Potassium Chloride Carbon Dioxide Anion Gap BUN Creatinine Est GFR (CKD-EPI)AfAm Est GFR (CKD-EPI)NonAf POC Glucometer 360 282 250 Random Glucose Lactic Acid Calcium Phosphorus Magnesium Total Bilirubin AST ALT Alkaline Phosphatase Total Protein Albumin Blood Type Antibody Screen Crossmatch 06/09/19 06/09/1919 22:55 22:55 22:55 WBC 12.0 H RBC 3.12 L Hgb 8.7 L Hct 26.1 L D MCV 83.6 MCH 28.0 MCHC 33.4 RDW 14.3 Plt Count 138 MPV 10.2 PT with INR INR PTT (Actin FS) Sodium 141 Potassium 5.1 Chloride 111 H Carbon Dioxide 24 Anion Gap 6 L BUN 31.9 H Creatinine 1.7 H Est GFR (CKD-EPI)AfAm 48.66 Est GFR (CKD-EPI)NonAf 41.98 POC Glucometer Random Glucose 272 H Lactic Acid 2.3 H* Calcium 7.8 L Phosphorus Magnesium Total Bilirubin 0.4 AST 13 L ALT 15 Alkaline Phosphatase 98 Total Protein 6.3 L Albumin 3.2 L Blood Type Antibody Screen Crossmatch 06/10/19 06/10/19 06/10/19 02:00 02:45 02:45 WBC 9.4 RBC 2.78 L Hgb 7.8 L Hct 23.4 L MCV 84.3 MCH 28.2 MCHC 33.4 RDW 14.2 Plt Count 117 L MPV 11.1 PT with INR INR PTT (Actin FS) 21.3 L Sodium Potassium Chloride Carbon Dioxide Anion Gap BUN Creatinine Est GFR (CKD-EPI)AfAm Est GFR (CKD-EPI)NonAf POC Glucometer Random Glucose Lactic Acid Calcium Phosphorus Magnesium Total Bilirubin AST ALT Alkaline Phosphatase Total Protein Albumin Blood Type O POSITIVE Antibody Screen Negative Crossmatch See Detail 06/10/19 06/10/19 06/10/19 02:45 06:10 06:10 WBC 8.4 RBC 2.76 L Hgb 8.0 L Hct 23.1 L MCV 83.8 MCH 29.1 MCHC 34.8 RDW 14.4 Plt Count 107 L MPV 11.0 PT with INR 13.70 H INR 1.16 H PTT (Actin FS) Sodium 138 Potassium 5.9 H Chloride 110 H Carbon Dioxide 21 Anion Gap 7 L BUN 36.1 H Creatinine 2.0 H Est GFR (CKD-EPI)AfAm 39.98 Est GFR (CKD-EPI)NonAf 34.49 POC Glucometer Random Glucose 406 H* Lactic Acid Calcium 7.2 L Phosphorus 3.2 Magnesium 1.4 L Total Bilirubin 0.4 AST 11 L ALT 14 Alkaline Phosphatase 82 Total Protein 5.6 L Albumin 2.8 L Blood Type Antibody Screen Crossmatch 06/10/19 06/10/19 06:10 07:08 WBC RBC Hgb Hct MCV MCH MCHC RDW Plt Count MPV PT with INR INR PTT (Actin FS) Sodium Potassium Chloride Carbon Dioxide Anion Gap BUN Creatinine Est GFR (CKD-EPI)AfAm Est GFR (CKD-EPI)NonAf POC Glucometer 360 Random Glucose Lactic Acid 2.0 Calcium Phosphorus Magnesium Total Bilirubin AST ALT Alkaline Phosphatase Total Protein Albumin Blood Type Antibody Screen Crossmatch ASSESSMENT/PLAN: Right retroperitoneal bleed CAD CABGx3 S/P PCI HTN HLD DM Bilateral Endarterectomy Hyperlipidemia CHF Anemia CKD PVD Previous SFA occlusion S/P stent placement Normal transfusion thresholds > 8 gm due to coronary disease Follow H & H O2 as needed Pain control D/W Vascular, hold anti-platelets and AC until H & H has stabilized Incentive Spirometry Mechanical VTE prophylaxis Floor once stable Dr Lyon
[2019-06-10] MEDS: INSULIN SLIDING SCALE (NOVOLOG) 1 VIAL SQ SCH ×2 (11:23→18:40)
--- NOTE | 2019-06-10 12:09 | EKG ---
Test Reason : Blood Pressure : / mmHG Vent. Rate : 076 BPM Atrial Rate : 076 BPM P-R Int : 194 ms QRS Dur : 110 ms QT Int : 400 ms P-R-T Axes : 042 -10 135 degrees QTc Int : 450 ms NORMAL SINUS RHYTHM POSSIBLE LEFT ATRIAL ENLARGEMENT LEFT VENTRICULAR HYPERTROPHY INFERIOR INFARCT , AGE UNDETERMINED ABNORMAL ECG Confirmed by PAUL MACK, KADIE ([id number]) on 06/10/2019 12:09:47 PM Referred By: ALEX QUINONES DR Confirmed By:KADIE MILLER MD
--- NOTE | 2019-06-10 13:10 | PN ---
Physical Exam: SUBJECTIVE: Patient seen and examined at bedside in the ICU. Patient is awake and alert. Denies chest pain or shortness of breath. Reports that his RLQ pain has moderately improved. Patient was transfused with 1 unit of pRBC overnight. 1 unit of pRBC and 1 unit of platelets held. OBJECTIVE: Vital Signs Period Temp Pulse Resp BP Sys/[place] Pulse Ox Last 24 Hr 97.7 F-99.9 F 66-93 8-20 68-146/49-76 97-100 GENERAL: The patient is awake, alert, and fully oriented, in no acute distress. HEAD: Normal with no signs of trauma. EYES: PERRL, extraocular movements intact, sclera anicteric, conjunctiva clear. No ptosis. ENT: Ears normal, nares patent, oropharynx clear without exudates, moist mucous membranes. NECK: Trachea midline, full range of motion, supple. LUNGS: Breath sounds equal, clear to auscultation bilaterally, no wheezes, no crackles, no accessory muscle use. HEART: Regular rate and rhythm, S1, S2 without murmur, rub or gallop. ABDOMEN: Soft, RLQ TTP, nondistended, no guarding, no rebound, no hepatosplenomegaly, no masses. EXTREMITIES: 2+ pulses, warm, well-perfused, no edema. NEUROLOGICAL: Cranial nerves II through XII grossly intact. Normal speech, gait not observed. PSYCH: Normal mood, normal affect. SKIN: Warm, dry, normal turgor, no rashes or lesions noted Laboratory Results - last 24 hr 06/09/19 06/09/19 06/09/19 15:05 17:14 22:55 WBC 12.0 H RBC 3.12 L Hgb 8.7 L Hct 26.1 L D MCV 83.6 MCH 28.0 MCHC 33.4 RDW 14.3 Plt Count 138 MPV 10.2 PT with INR INR PTT (Actin FS) Sodium Potassium Chloride Carbon Dioxide Anion Gap BUN Creatinine Est GFR (CKD-EPI)AfAm Est GFR (CKD-EPI)NonAf POC Glucometer 282 250 Random Glucose Lactic Acid Calcium Phosphorus Magnesium Total Bilirubin AST ALT Alkaline Phosphatase Total Protein Albumin Blood Type Antibody Screen Crossmatch 06/09/19 06/09/19 06/10/19 22:55 22:55 02:00 WBC RBC Hgb Hct MCV MCH MCHC RDW Plt Count MPV PT with INR INR PTT (Actin FS) Sodium 141 Potassium 5.1 Chloride 111 H Carbon Dioxide 24 Anion Gap 6 L BUN 31.9 H Creatinine 1.7 H Est GFR (CKD-EPI)AfAm 48.66 Est GFR (CKD-EPI)NonAf 41.98 POC Glucometer Random Glucose 272 H Lactic Acid 2.3 H* Calcium 7.8 L Phosphorus Magnesium Total Bilirubin 0.4 AST 13 L ALT 15 Alkaline Phosphatase 98 Total Protein 6.3 L Albumin 3.2 L Blood Type O POSITIVE Antibody Screen Negative Crossmatch See Detail 06/10/19 06/10/19 06/10/19 02:45 02:45 02:45 WBC 9.4 RBC 2.78 L Hgb 7.8 L Hct 23.4 L MCV 84.3 MCH 28.2 MCHC 33.4 RDW 14.2 Plt Count 117 L MPV 11.1 PT with INR 13.70 H INR 1.16 H PTT (Actin FS) 21.3 L Sodium Potassium Chloride Carbon Dioxide Anion Gap BUN Creatinine Est GFR (CKD-EPI)AfAm Est GFR (CKD-EPI)NonAf POC Glucometer Random Glucose Lactic Acid Calcium Phosphorus Magnesium Total Bilirubin AST ALT Alkaline Phosphatase Total Protein Albumin Blood Type Antibody Screen Crossmatch 06/10/19 06/10/19 06/10/19 06:10 06:10 06:10 WBC 8.4 RBC 2.76 L Hgb 8.0 L Hct 23.1 L MCV 83.8 MCH 29.1 MCHC 34.8 RDW 14.4 Plt Count 107 L MPV 11.0 PT with INR INR PTT (Actin FS) Sodium 138 Potassium 5.9 H Chloride 110 H Carbon Dioxide 21 Anion Gap 7 L BUN 36.1 H Creatinine 2.0 H Est GFR (CKD-EPI)AfAm 39.98 Est GFR (CKD-EPI)NonAf 34.49 POC Glucometer Random Glucose 406 H* Lactic Acid 2.0 Calcium 7.2 L Phosphorus 3.2 Magnesium 1.4 L Total Bilirubin 0.4 AST 11 L ALT 14 Alkaline Phosphatase 82 Total Protein 5.6 L Albumin 2.8 L Blood Type Antibody Screen Crossmatch 06/10/19 06/10/19 07:08 11:16 WBC RBC Hgb Hct MCV MCH MCHC RDW Plt Count MPV PT with INR INR PTT (Actin FS) Sodium Potassium Chloride Carbon Dioxide Anion Gap BUN Creatinine Est GFR (CKD-EPI)AfAm Est GFR (CKD-EPI)NonAf POC Glucometer 360 272 Random Glucose Lactic Acid Calcium Phosphorus Magnesium Total Bilirubin AST ALT Alkaline Phosphatase Total Protein Albumin Blood Type Antibody Screen Crossmatch Active Medications Generic Name Dose Route Start Last Admin Trade Name Freq PRN Reason Stop Dose Admin Acetaminophen 325 mg 06/10/19 03:19 Tylenol - PO Q6H PRN PAIN LEVEL 5-10 Acetaminophen 1,000 mg 06/10/19 03:24 Ofirmev Injection - IVPB Q6H PRN PAIN OR FEVER Albuterol/Ipratropium 1 amp 06/10/19 08:12 Duoneb - NEB RQID [facility] Aspirin 81 mg 06/10/19 10:00 Asa - PO DAILY [facility] Atorvastatin Calcium 80 mg 06/10/19 22:00 Lipitor - PO [facility] Chlorhexidine Gluconate 1 applic 06/10/19 22:00 Hibiclens For Decolonization - TP [facility] Clopidogrel Bisulfate 75 mg 06/10/19 10:00 Plavix - PO DAILY [facility] Collagenase 1 applic 06/10/19 10:00 Santyl - TP DAILY [facility] Protocol Ferrous Sulfate 325 mg 06/10/19 10:00 06/10/19 09:56 Feosol - PO 325 mg DAILY [facility] Administration Folic Acid 1 mg 06/10/19 10:00 06/10/19 09:58 Folic Acid - PO 1 mg DAILY [facility] Administration Furosemide 40 mg 06/10/19 10:00 Lasix - PO DAILY [facility] Gabapentin 600 mg 06/10/19 10:00 06/10/19 09:57 Neurontin - PO 600 mg DAILY [facility] Administration Insulin Aspart 1 vial 06/10/19 07:12 06/10/19 11:23 Novolog Vial Sliding Scale - SQ 6 units TIDAC [facility] Administration Protocol Metoprolol Succinate 25 mg 06/10/19 10:00 Toprol Xl - PO BID [facility] Multivitamins/Minerals/Vitamin C 1 tab 06/10/19 10:00 06/10/19 09:59 Tab-A-Vit - PO 1 tab DAILY [facility] Administration Mupirocin 1 applic 06/10/19 10:00 Bactroban Ointment (For Decolonization) - NS 06/15/19 09:59 BID [facility] Ondansetron HCl 4 mg 06/10/19 03:19 Zofran Injection IVPUSH Q6H PRN NAUSEA AND/OR VOMITING Oxycodone HCl 5 mg 06/10/19 03:19 Roxicodone - PO Q6H PRN PAIN LEVEL 5-10 Ranitidine HCl 150 mg 06/10/19 22:00 Zantac - PO HS [facility] Tamsulosin HCl 0.4 mg 06/10/19 22:00 Flomax - PO HS [facility] Zolpidem Tartrate 10 mg 06/10/19 03:19 Ambien - PO HS PRN INSOMNIA ASSESSMENT/PLAN: 63 yo M PMH of CAD (CABGx3, PCI),HTN, HLD, DM, b/l Endarterectomy, Hyperlipidemia, DM type 2, CHF, anemia, CKD, PVD. Pt recently had a left lower extremity angiogram 06/09/19, found to have SFA occlusion, s/p stent placement. Pt is admitted to ICU for close monitoring of intra-abdominal hemorrhage. Neuro: -pt AAOx3 Cardio/ Vasculature: CAD (CABGx3, PCI),HTN, HLD, b/l Endarterectomy, Hyperlipidemia, CHF, PVD. s/p LLE angiogram and SFA stent placement POD 1 -Prelim CT read above, consider rpt imaging to monitor hemorrhage -continue cardiac monitoring -continue monitoring H/H, PTT, INR -hold asa, plavix -Hgb: 10.8 -> 7.8; 1 unit pRBC given overnight, 2nd given today; 1 unit platelets ordered -Dr. Marcel jacob appreciated, informed of overnight events/findings -hold antihypertensives in the setting of hypotension ID -pt afebrile -minor leukocytosis , likely reactive -lactate 2.3 -s/p 1g cefazolin Pulm: saturating well on NC Endo: DM -BGM, ISS Heme: acute on chronic anemia -continue to trend CBC Nephro: CKD -Cr 1.7 -continue to monitor -avoid nephrotoxic agents F/E/N -s/p 500 ml bolus of NS -monitor lytes -NPO for possible procedure in am Dispo: continue ICU care Visit type - Emergency Visit Emergency Visit: No - New Patient This patient is new to me today: No - Critical Care Critical Care patient: Yes Total Critical Care Time (in minutes): 35 Critical Care Statement: The care of this patient involved high complexity decision making to prevent further life threatening deterioration of the patient 's condition and/or to evaluate & treat vital organ system(s) failure or risk of failure. ATTENDING PHYSICIAN STATEMENT I saw and evaluated the patient. I reviewed the resident's note and discussed the case with the resident. I agree with the resident's findings and plan as documented. SUBJECTIVE: OBJECTIVE: ASSESSMENT AND PLAN:
--- NOTE | 2019-06-10 14:01 | PN ---
Teaching Attending Note Name of Resident: Lisa Vargas ATTENDING PHYSICIAN STATEMENT I saw and evaluated the patient. I reviewed the resident's note and discussed the case with the resident. I agree with the resident's findings and plan as documented. SUBJECTIVE:R flank pain improved. denies Cp, SOB, fever, chills, N/V/C/D OBJECTIVE: Last Vital Signs Temp Pulse Resp BP Pulse Ox 98.1 F 79 17 123/66 97 06/10/19 10:00 06/10/19 12:00 06/10/19 09:00 06/10/19 12:00 06/10/19 09:00 General NAD CV S1 S2 RRR no murmur/rub/gallop Lungs CTA B/L no wheezing/rales/rhonchi Abdomen soft +R flank and RLQ pain ASSESSMENT AND PLAN: 63yo M with PMH CKD, CAD s/p CABG was here for scheduled LLE aortogram and developed severe R flank pain and hypotension and found to have a large retroperitoneal hematoma 1. Retroperitoneal hematoma- complication from aortogram. has received 1 unit PRBC and currently receiving 1 unit platelets. will give additional unit due to inappropriate response. hemodynamically stable and not tachycardic so do not believe he is continuing to bleed at this time. serial Hgb monitoring and cardiac monitoring. 2. can transfer to tele for further monitoring if repeat hgb is stable. anticipate discharge tomorrow if continues to improve The care of this patient involved high complexity decision making to prevent further life threatening deterioration of the patient's condition and/or to evaluate & treat vital organ system(s) failure or risk of failure. 38 minutes
--- NOTE | 2019-06-10 16:43 | PN ---
Physical Exam: SUBJECTIVE: Patient seen and examined. Endorses lower abdominal pain. Denies dizziness, fatigue, CP, SOB. Yemeni Translation provided by nurse at bedside. Denies appetite. OBJECTIVE: Vital Signs Period Temp Pulse Resp BP Sys/Bolton Pulse Ox Last 24 Hr 97.7 F-99.9 F 66-93 8-20 68-153/49-76 97-100 GENERAL: The patient is awake, alert, in no acute distress. HEAD: Normal with no signs of trauma. No temporal wasting. Well-healed R CEA scar EYES: PERRL, extraocular movements intact, sclera anicteric, conjunctiva clear. No ptosis. ENT: moist mucous membranes. NECK: Trachea midline, full range of motion, supple. LUNGS: Breath sounds equal, clear to auscultation bilaterally, no wheezes, no crackles, no accessory muscle use. HEART: Regular rate and rhythm, S1, S2 without murmur, rub or gallop. Well- healed sternotomy scar ABDOMEN: Soft, nondistended, normoactive bowel sounds, tenderness to deep palpation of RLQ, no flank ecchymosis, no guarding, no rebound. EXTREMITIES: 2+ pulse of R DP, 1+ Left DP w/ biphasic doppler signal; LLE with distal lower leg wound covering in guaze; warm, well-perfused, no edema. NEUROLOGICAL: normal speech SKIN: Warm, dry, normal turgor, no rashes or lesions noted Laboratory Results - last 24 hr 06/09/19 06/09/19 06/09/19 17:14 22:55 22:55 WBC 12.0 H RBC 3.12 L Hgb 8.7 L Hct 26.1 L D MCV 83.6 MCH 28.0 MCHC 33.4 RDW 14.3 Plt Count 138 MPV 10.2 PT with INR INR PTT (Actin FS) Sodium 141 Potassium 5.1 Chloride 111 H Carbon Dioxide 24 Anion Gap 6 L BUN 31.9 H Creatinine 1.7 H Est GFR (CKD-EPI)AfAm 48.66 Est GFR (CKD-EPI)NonAf 41.98 POC Glucometer 250 Random Glucose 272 H Lactic Acid Calcium 7.8 L Phosphorus Magnesium Total Bilirubin 0.4 AST 13 L ALT 15 Alkaline Phosphatase 98 Total Protein 6.3 L Albumin 3.2 L Blood Type Antibody Screen Crossmatch 06/09/19 06/10/19 06/10/19 22:55 02:00 02:45 WBC 9.4 RBC 2.78 L Hgb 7.8 L Hct 23.4 L MCV 84.3 MCH 28.2 MCHC 33.4 RDW 14.2 Plt Count 117 L MPV 11.1 PT with INR INR PTT (Actin FS) Sodium Potassium Chloride Carbon Dioxide Anion Gap BUN Creatinine Est GFR (CKD-EPI)AfAm Est GFR (CKD-EPI)NonAf POC Glucometer Random Glucose Lactic Acid 2.3 H* Calcium Phosphorus Magnesium Total Bilirubin AST ALT Alkaline Phosphatase Total Protein Albumin Blood Type O POSITIVE Antibody Screen Negative Crossmatch See Detail 06/10/19 06/10/19 06/10/19 02:45 02:45 06:10 WBC 8.4 RBC 2.76 L Hgb 8.0 L Hct 23.1 L MCV 83.8 MCH 29.1 MCHC 34.8 RDW 14.4 Plt Count 107 L MPV 11.0 PT with INR 13.70 H INR 1.16 H PTT (Actin FS) 21.3 L Sodium Potassium Chloride Carbon Dioxide Anion Gap BUN Creatinine Est GFR (CKD-EPI)AfAm Est GFR (CKD-EPI)NonAf POC Glucometer Random Glucose Lactic Acid Calcium Phosphorus Magnesium Total Bilirubin AST ALT Alkaline Phosphatase Total Protein Albumin Blood Type Antibody Screen Crossmatch 06/10/19 06/10/19 06/10/19 06:10 06:10 07:08 WBC RBC Hgb Hct MCV MCH MCHC RDW Plt Count MPV PT with INR INR PTT (Actin FS) Sodium 138 Potassium 5.9 H Chloride 110 H Carbon Dioxide 21 Anion Gap 7 L BUN 36.1 H Creatinine 2.0 H Est GFR (CKD-EPI)AfAm 39.98 Est GFR (CKD-EPI)NonAf 34.49 POC Glucometer 360 Random Glucose 406 H* Lactic Acid 2.0 Calcium 7.2 L Phosphorus 3.2 Magnesium 1.4 L Total Bilirubin 0.4 AST 11 L ALT 14 Alkaline Phosphatase 82 Total Protein 5.6 L Albumin 2.8 L Blood Type Antibody Screen Crossmatch 06/10/19 11:16 WBC RBC Hgb Hct MCV MCH MCHC RDW Plt Count MPV PT with INR INR PTT (Actin FS) Sodium Potassium Chloride Carbon Dioxide Anion Gap BUN Creatinine Est GFR (CKD-EPI)AfAm Est GFR (CKD-EPI)NonAf POC Glucometer 272 Random Glucose Lactic Acid Calcium Phosphorus Magnesium Total Bilirubin AST ALT Alkaline Phosphatase Total Protein Albumin Blood Type Antibody Screen Crossmatch Active Medications Generic Name Dose Route Start Last Admin Trade Name Freq PRN Reason Stop Dose Admin Acetaminophen 325 mg 06/10/19 03:19 Tylenol - PO Q6H PRN PAIN LEVEL 5-10 Acetaminophen 1,000 mg 06/10/19 03:24 Ofirmev Injection - IVPB Q6H PRN PAIN OR FEVER Albuterol/Ipratropium 1 amp 06/10/19 08:12 06/10/19 11:50 Duoneb - NEB [address] [facility] Administration Aspirin 81 mg 06/10/19 10:00 Asa - PO DAILY [facility] Atorvastatin Calcium 80 mg 06/10/19 22:00 Lipitor - PO [facility] Chlorhexidine Gluconate 1 applic 06/10/19 22:00 Hibiclens For Decolonization - TP [facility] Clopidogrel Bisulfate 75 mg 06/10/19 10:00 Plavix - PO DAILY [facility] Collagenase 1 applic 06/10/19 10:00 Santyl - TP DAILY [facility] Protocol Ferrous Sulfate 325 mg 06/10/19 10:00 06/10/19 09:56 Feosol - PO [address] [facility] Administration Folic Acid 1 mg 06/10/19 10:00 06/10/19 09:58 Folic Acid - PO [address] [facility] Administration Furosemide 40 mg 06/10/19 10:00 Lasix - PO DAILY [facility] Gabapentin 600 mg 06/10/19 10:00 06/10/19 09:57 Neurontin - PO [address] [facility] Administration Insulin Aspart 1 vial 06/10/19 07:12 06/10/19 11:23 Novolog Vial Sliding Scale - SQ [address] [facility] Administration Protocol Metoprolol Succinate 25 mg 06/10/19 10:00 Toprol Xl - PO BID [facility] Multivitamins/Minerals/Vitamin C 1 tab 06/10/19 10:00 06/10/19 09:59 Tab-A-Vit - PO [address] [facility] Administration Mupirocin 1 applic 06/10/19 10:00 Bactroban Ointment (For Decolonization) - NS 06/15/19 09:[address] [facility] Ondansetron HCl 4 mg 06/10/19 03:19 Zofran Injection IVPUSH Q6H PRN NAUSEA AND/OR VOMITING Oxycodone HCl 5 mg 06/10/19 03:19 Roxicodone - PO Q6H PRN PAIN LEVEL 5-10 Ranitidine HCl 150 mg 06/10/19 22:00 Zantac - PO HS [facility] Tamsulosin HCl 0.4 mg 06/10/19 22:00 Flomax - PO HS [facility] Zolpidem Tartrate 10 mg 06/10/19 03:19 Ambien - PO HS PRN INSOMNIA Vital Signs Temp 98.0 F 06/10/19 14:00 Pulse 73 06/10/19 14:00 Resp 17 06/10/19 09:00 BP 153/71 06/10/19 14:00 Pulse Ox 97 06/10/19 09:00 Intake & Output 06/09/19 06/10/19 06/10/19 23:59 11:59 23:59 Intake Total 1000 350 Balance 1000 350 Weight 77.111 kg Intake: IV 1000 Packed Cells 350 Other: Voiding Method Urinal # Unmeasured Voids Void 1 Height 5 ft 8 in Body Mass Index (BMI) 25.8 Weight Measurement Method Stated by Patient ASSESSMENT/PLAN: 63 y.o. M PMH CAD (3x CABG), HFrEF(Jul 2018, 35%), Right CEA, HTN, HLD, PAD, CKD , asthma, fibromyalgia, DM type 2, BPH, anemia, depression s/p LLE angiogram for SFA occlusion as well as I&D of LLE ulcer(Marcel, 06/09/19). POD#1, post- operative course complicated by a retroperitoneal bleed d/t instrumentation and patient noncompliant with holding ASA and Plavix 5d prior to surgery #Right retroperitoneal hemorrhage >CT A/P(06/09/19): Right retroperitoneal bleed -Hgb: 8.7 --> 7.8 --> 8.0; pRBC x2, platelet x1 -sp 1000mL NS bolus -Given percocet 5mg, 325mg tylenol -Holding ASA & Plavix -fu hgb ~1h post transfusion #PAD -S/p LLE angiography w/ angioplasty & stent placement for SFA occlusion, POD#1 -F/u in wound clinic outpatient for LLE ulcer-- s/p OR I&D #hyperkalemia -- 5.9 >EKG w/o peaked T-waves -s/p duoneb, insulin -fu BMP #chronic normocytic anemia with acute blood loss anemia -iron supplementation #CAD s/p NE, w/ prior PCI -Holding ASA & plavix -Crestor held #CHF -lasix -- held d/t to recent hypotension -recent echo shows EF 35% #HTN -Holding anti HTN meds (metoprolol) -Amlodipine d/c'd by Dr. Saleem 1 mo. ago -No JANELLE/ARB d/t CKD #HLD -C/w atorvastatin 80mg PO @ bedtime #CKD -No JANELLE/ARB d/t CKD #DM2 -ISS -BGMs -C/w long acting insulin 30U SQ #BPH -C/w tamsulosin-- if hypotensive, hold #Depression -Pt takes ambien @ home-- holding while inpatient #FEN -Trend lytes; trend h&h -diabetic diet #Pain control -oxycodone 5mg PO q6h PRN -Tylenol 325mg PO q6h PRN #DVT PPX -active bleed, hold AC #Dispo -admitted to ICU, will downgrade to med/surg if Hgb stable Visit type - Emergency Visit Emergency Visit: No - New Patient This patient is new to me today: No - Critical Care Critical Care patient: No ATTENDING PHYSICIAN STATEMENT I saw and evaluated the patient. I reviewed the resident's note and discussed the case with the resident. I agree with the resident's findings and plan as documented. SUBJECTIVE: OBJECTIVE: ASSESSMENT AND PLAN:
[2019-06-10 17:30] LABS: HEMATOCRIT 26.3 % (35.4-49); MCH 28.8 pg (25.7-33.7); MCHC 34.1 g/dl (32.0-35.9); MEAN CELL VOLUME 84.6 fl (80-96); MEAN PLT VOLUME 10.9 fl (7.5-11.1); PLATELET COUNT 113 K/MM3 (134-434); RBC 3.11 M/mm3 (4.00-5.60); RDW 14.7 % (11.9-15.9); WHITE BLOOD COUNT 7.3 K/mm3 (4.0-10.0)
[2019-06-10 17:59] LABS: BLOOD UREA NITROGEN 28.8 mg/dL (7-18); CALCIUM 7.6 mg/dL (8.5-10.1); CREATININE 1.6 mg/dL (0.55-1.3); POTASSIUM 4.3 mmol/L (3.5-5.1)
[2019-06-10] MEDS ORDERED: ALBUTEROL SO4 2.5/IPRATROPIUM 0.5 INH SOL 3 ML VIAL.NEB. NEB SCH (20:00)
[2019-06-10] MEDS: metoPROLOL SUCCINATE 25 MG TAB.SR.24H (FP) PO SCH (21:43)
[2019-06-10] MEDS ORDERED: RANITIDINE HCL 150 MG TABLET (FP) PO SCH ×3 (22:00)
[2019-06-10] MEDS ORDERED: TAMSULOSIN HCL 0.4 MG CAP PO SCH ×3 (22:00)
[2019-06-10] MEDS ORDERED: CHLORHEXIDINE GLUCONATE 4% CLEANSER FOR DECOLONIZATION TP SCH ×3 (22:00)
[2019-06-10] MEDS ORDERED: ATORVASTATIN CA 80 MG TABLET (FP) PO SCH ×3 (22:00)
[2019-06-11] MEDS: INSULIN SLIDING SCALE (NOVOLOG) 1 VIAL SQ SCH ×3 (06:09→17:30)
[2019-06-11 06:57] LABS: BASO % 0.7 % (0-2.0); EOS % 2.3 % (0-4.5); HEMATOCRIT 24.2 % (35.4-49); HEMOGLOBIN 8.6 GM/dL (11.7-16.9); LYMPH % 15.4 % (8-40); MCH 29.5 pg (25.7-33.7); MCHC 35.4 g/dl (32.0-35.9); MEAN CELL VOLUME 83.3 fl (80-96); MEAN PLT VOLUME 10.2 fl (7.5-11.1); MONO % 8.5 % (3.8-10.2); NEUT % 73.1 % (42.8-82.8); PLATELET COUNT 101 K/MM3 (134-434); RDW 14.5 % (11.9-15.9)
[2019-06-11] MEDS ORDERED: INSULIN SLIDING SCALE (NOVOLOG) 1 VIAL SQ SCH (07:00)
[2019-06-11] MEDS: ALBUTEROL SO4 2.5/IPRATROPIUM 0.5 INH SOL 3 ML VIAL.NEB. NEB SCH ×2 (08:22→12:16)
[2019-06-11 08:57] VITALS: PULSE 90
[2019-06-11] MEDS: metoPROLOL SUCCINATE 25 MG TAB.SR.24H (FP) PO SCH (09:30)
[2019-06-11] MEDS ORDERED: FUROSEMIDE 40 MG TABLET (FP) PO SCH ×2 (10:00)
[2019-06-11] MEDS ORDERED: GABAPENTIN 300 MG CAPSULE (FP) PO SCH ×2 (10:00)
[2019-06-11] MEDS ORDERED: ASPIRIN 81 MG CHEWABLE TABLETS PO SCH ×2 (10:00)
[2019-06-11] MEDS ORDERED: FOLIC ACID 1 MG TABLET (FP) PO SCH ×2 (10:00)
[2019-06-11] MEDS ORDERED: MULTIVITAMINS (DAILY MVI) TABLET (FP) PO SCH ×2 (10:00)
[2019-06-11] MEDS ORDERED: COLLAGENASE CLOSTRIDIUM HIST. 30 GRAMS TUBE TP SCH ×2 (10:00)
[2019-06-11] MEDS ORDERED: CLOPIDOGREL BISULFATE 75 MG TABLET (FP) PO SCH ×2 (10:00)
[2019-06-11] MEDS ORDERED: FERROUS SO4 325 MG TABLET (FP) PO SCH ×2 (10:00)
--- NOTE | 2019-06-11 10:21 | DS ---
Physical Exam: SUBJECTIVE: Patient seen and examined. R flank pain overall improved. worse with movement. denies Cp, SOB, fever,c hills, N/V/C?D OBJECTIVE: Vital Signs Period Temp Pulse Resp BP Sys/Bolton Pulse Ox Last 24 Hr 98.0 F-99.2 F 73-90 14-20 123-155/63-86 96-98 PHYSICAL EXAM GENERAL: The patient is awake, alert, and fully oriented, in no acute distress. HEAD: Normal with no signs of trauma. EYES: PERRL, extraocular movements intact, sclera anicteric, conjunctiva clear. ENT: Ears normal, nares patent, oropharynx clear without exudates, moist mucous membranes. NECK: Trachea midline, full range of motion, supple. LUNGS: Breath sounds equal, clear to auscultation bilaterally, no wheezes, no crackles, no accessory muscle use. HEART: Regular rate and rhythm, S1, S2 without murmur, rub or gallop. ABDOMEN: Soft, R flank tenderness, nondistended, normoactive bowel sounds, no guarding, no rebound, no hepatosplenomegaly, no masses. EXTREMITIES: warm, well-perfused, no edema. NEUROLOGICAL: Cranial nerves II through XII grossly intact. Normal speech, gait not observed. PSYCH: Normal mood, normal affect. SKIN: Warm, dry, normal turgor, no rashes or lesions noted. LABS Laboratory Results - last 24 hr 06/10/19 06/10/19 06/10/19 02:00 11:16 15:00 WBC RBC Hgb Hct MCV MCH MCHC RDW Plt Count MPV Absolute Neuts (auto) Neutrophils % Lymphocytes % Monocytes % Eosinophils % Basophils % Nucleated RBC % Sodium 141 Potassium 4.3 Chloride 111 H Carbon Dioxide 25 Anion Gap 6 L BUN 28.8 H Creatinine 1.6 H Est GFR (CKD-EPI)AfAm 52.36 Est GFR (CKD-EPI)NonAf 45.18 POC Glucometer 272 Random Glucose 245 H Calcium 7.6 L Phosphorus 3.0 Magnesium 2.0 Blood Type O POSITIVE Antibody Screen Negative Crossmatch See Detail 06/10/19 06/10/19 06/10/19 16:00 17:22 20:59 WBC 7.3 RBC 3.11 L Hgb 9.0 L Hct 26.3 L MCV 84.6 MCH 28.8 MCHC 34.1 RDW 14.7 Plt Count 113 L MPV 10.9 Absolute Neuts (auto) Neutrophils % Lymphocytes % Monocytes % Eosinophils % Basophils % Nucleated RBC % Sodium Potassium Chloride Carbon Dioxide Anion Gap BUN Creatinine Est GFR (CKD-EPI)AfAm Est GFR (CKD-EPI)NonAf POC Glucometer 240 300 Random Glucose Calcium Phosphorus Magnesium Blood Type Antibody Screen Crossmatch 06/11/19 06/11/19 05:58 06:25 WBC 6.0 RBC 2.90 L Hgb 8.6 L Hct 24.2 L MCV 83.3 MCH 29.5 MCHC 35.4 RDW 14.5 Plt Count 101 L MPV 10.2 Absolute Neuts (auto) 4.4 Neutrophils % 73.1 Lymphocytes % 15.4 Monocytes % 8.5 Eosinophils % 2.3 Basophils % 0.7 Nucleated RBC % 0 Sodium Potassium Chloride Carbon Dioxide Anion Gap BUN Creatinine Est GFR (CKD-EPI)AfAm Est GFR (CKD-EPI)NonAf POC Glucometer 273 Random Glucose Calcium Phosphorus Magnesium Blood Type Antibody Screen Crossmatch HOSPITAL COURSE: Date of Admission:06/10/19 Date of Discharge: 06/11/19 Admitting diagnosis: Retroperitoneal hematoma Pre hospital course 63 yo M PMH of CAD (CABGx3, PCI),HTN, HLD, DM, b/l Endarterectomy, Hyperlipidemia, DM type 2, CHF, anemia, CKD, PVD. Pt recently had a left lower extremity angiogram 06/09/19, found to have SFA occlusion, s/p stent placement. Shortly following the procedure, patient developed right flank/ abdominal pain w / hypotension and tachycardia. Preliminary CT abd/pelvis read as right extensive hematoma about 10 x11 cm adjacent to right psoas muscle and kidney. Pt reports that he took aspirin and plavix the night before procedure. Dr. Rod was called and aware of complication. Pt states he is currently having R back pain 06/16, non radiating. pt states the pain began shortly after the procedure and never had any similar pains in the past. pt endorses dizziness. pt denies n/v. pt subsequent hospital course pt was transferred to ICU for close monitoring for hypotension and tachycardia. CT imaging as stated with 10x11 retroperitoneal hematoma. pt was given IVF, 2 units PRBC and 1 unit platelets. became hemodynamically stable. Hgb stabilized. pain improved. d/c home Minutes to complete discharge: 40 Discharge Summary Problems reviewed: Yes Reason For Visit: NON-PRESSURE CHRONIC ULCER OF LEFT CALF W FAT LAYE Current Active Problems Retroperitoneal bleed (Acute) Condition: Good - Instructions Diet, Activity, Other Instructions: S/P angiogram. Pt needs bypass in left leg. Please continue santyl to left leg ulcer daily. Pt needs to go back to [facility] -- Dr. Saleem for clearance prior to bypass procedure. Return to office in one week. Please call for appt -- [phone] Please return to the hospital if your pain worsens or develop fevers (temp>101) Referrals: Jm Saleem MD [Staff Physician] - Mesfin Rod MD [Non Staff, Medical] - Disposition: HOME - Home Medications Comprehensive Discharge Medication List: Ambulatory Orders Aspirin [ASA -] 81 mg PO DAILY #60 tab.chew 06/12/14 Clopidogrel Bisulfate [Plavix -] 75 mg PO DAILY #30 tablet 06/12/14 Ranitidine [Zantac -] 150 mg PO BID 04/22/18 Furosemide [Lasix -] 40 mg PO DAILY #30 tablet 04/24/18 Gabapentin 600 mg PO TID 07/26/18 Atorvastatin Ca [Lipitor] 80 mg PO HS #30 tablet 07/27/18 Ferrous Sulfate 325 mg PO DAILY 04/15/19 Folic Acid 1 mg PO DAILY 04/15/19 Insulin Glargine,Hum.rec.anlog [Basaglar Kwikpen U-100] 30 units SQ DAILY Metoprolol Succinate [Toprol XL -] 50 mg PO DAILY 04/15/19 Multivitamins [Multivit ([facility] Formulary)] 1 tab PO DAILY 04/15/19 Oxycodone HCl/Acetaminophen [Percocet 10-325 mg Tablet] 1 tab PO Q12H PRN Zolpidem Tartrate [Ambien] 10 mg PO HS 04/15/19 Collagenase Clostridium Hist. [Santyl] 1 applic TP DAILY #90 oint...g. 05/02/19 Tamsulosin HCl [Flomax -] 0.4 mg PO DAILY 06/08/19 Amlodipine Besylate 5 mg PO DAILY 06/10/19 Losartan Potassium 100 mg PO DAILY 06/10/19 Metformin HCl [Glucophage] 1,000 mg PO BID 06/10/19 Prescription Drug Monitoring Program (I-STOP) results: I-STOP not reviewed (not prescribing new narcotics) This patient is new to me today: No Emergency Visit: No Critical Care patient: No - Discharge Referral Referred to [facility] Med [facility] Yes Physician Referral: Mesfin Rod DO ([facility])
[2019-06-11] MEDS ORDERED: INSULIN (NOVOLOG) ASPART 100 UNITS/ML 10ML VIAL ONE (11:08)
[2019-06-11 14:39] VITALS: BP 158/73; TEMP 97.4
--- NOTE | 2019-06-28 14:47 | OP ---
DATE OF OPERATION: 06/09/2019 PREOPERATIVE DIAGNOSIS: Left leg ulcer. POSTOPERATIVE DIAGNOSIS: Left leg ulcer. PROCEDURE: CO2 aortogram, left lower extremity angiogram, excisional debridement left cook ulcer skin, subcutaneous tissue. INDICATIONS: Patient is a 63-year-old male that came to our office complaining of left lower extremity claudication and a left leg ulcer. The patient has not followed up in years. Patient sees another vascular surgeon all this time. Patient is a noncontrolled diabetic, does not check his sugars, and his hemoglobin A1C is highly elevated. Patient had a preoperative ultrasound showing left SFA disease. Patient had a left SFA stent placed sometime in 2012 or 2013 and never followed up. Patient was a heavy smoker and has since stopped. Patient came into ambulatory surgery. Patient was consented for the procedure understanding all risks, benefits, and alternatives then taken to the operating room. DESCRIPTION OF PROCEDURE: Once in the operating room, was laid on the operating room table in supine manner. The area of the right and left groin were prepped and draped in a sterile surgical manner. We then injected 10 mL of lidocaine 1% over the right common femoral artery. We under ultrasound guidance visualized right common femoral artery, and a micropuncture needle was used to puncture the right common femoral artery. Micropuncture wire was inserted, and a traditional 5-Chinese sheath was inserted. We then placed a 0.035 floppy guidewire up into the aorta followed by Omni Flush catheter. We then shot a CO2 aortogram showing that the aorta and the iliac arteries were without any disease. We then used a 0.035 floppy guidewire and went up and over to the left common femoral artery, and we then shot a CO2 left lower extremity angiogram showing that the common femoral artery was patent, the profunda was patent, but the SFA was closed, and it comes back above the knee. At this point, there is no origin to the SFA. Using a 0.035 stiff guidewire, we cannot negotiate and get into the [place] SFA, and the best procedure for the patient would probably be a left femoropopliteal bypass above the knee. That is what he got on the other leg, and that is probably what he needs on this side. That would give him the best long-term outcome. At this point, the patient had been given 5000 units of IV heparin. At this point, we brought our Omni Flush catheter up and over, 20 mg of Protamine was given to the patient so that we could reverse the patient. We then went ahead and took out our sheath, and pressure was held in the right groin for 15 minutes. After there was no more bleeding, the area was wet and dried, and Dermabond was placed. Patient tolerated the procedure with no complications. Patient transferred to PACU in stable condition. There were no signs of any hematoma. There were no signs of any bleeding in the right groin, and patient was transferred to the PACU. After the angiogram was finished, we prepped and draped the left cook in a sterile surgical manner. We then took a No. 15 blade and excised all the eschar and all the necrotic tissue from the 3 x 3 ulcer. That was sent down to pathology. The wound was then well irrigated with good granulation tissue. A curette was used to get all the necrotic tissue out. The wound was well irrigated. Wet 4 x 4 and Kerlix were placed. The patient tolerated the procedure with no complications, and patient was then transferred to PACU. TREY COSME DO [id number]
== END 2019-06-11 15:00 | disposition home or self-care (01) | DRG 661 ==
LOC: JASU-SURG 11:25 → J7W 20:57 → JICU 06-10 03:00 → JASU-SURG 06-10 03:01 → J4W 06-10 20:24
PROVIDERS: ADMIT Surgery Vascular Surgery; ATTEND Surgery Vascular Surgery
PROC: B41GYZZ Fluoroscopy of Left Lower Extremity Arteries using Other Contrast (ICD-10-PCS; 2019-06-09)
PROC: 0JBP0ZZ Excision of Left Lower Leg Subcutaneous Tissue and Fascia, Open Approach (ICD-10-PCS; principal; 2019-06-09 12:30)
PROC: 30233N1 Transfusion of Nonautologous Red Blood Cells into Peripheral Vein, Percutaneous Approach (ICD-10-PCS; 2019-06-10)
PROC: 30233R1 Transfusion of Nonautologous Platelets into Peripheral Vein, Percutaneous Approach (ICD-10-PCS; 2019-06-10)
DX: D68.32 Hemorrhagic disorder due to extrinsic circulating anticoagulants (principal); E11.622 Type 2 diabetes mellitus with other skin ulcer; I25.10 Atherosclerotic heart disease of native coronary artery without angina pectoris; Z98.61 Coronary angioplasty status; Z95.1 Presence of aortocoronary bypass graft; E78.5 Hyperlipidemia, unspecified; I95.9 Hypotension, unspecified; R00.0 Tachycardia, unspecified; E87.5 Hyperkalemia; I13.0 Hypertensive heart and chronic kidney disease with heart failure and stage 1 through stage 4 chronic kidney disease, or unspecified chronic kidney disease; N18.9 Chronic kidney disease, unspecified; D62 Acute posthemorrhagic anemia; F32.9 Major depressive disorder, single episode, unspecified; N40.0 Benign prostatic hyperplasia without lower urinary tract symptoms; I50.20 Unspecified systolic (congestive) heart failure; L97.928 Non-pressure chronic ulcer of unspecified part of left lower leg with other specified severity; M79.7 Fibromyalgia; R58 Hemorrhage, not elsewhere classified; I77.1 Stricture of artery; T39.015A Adverse effect of aspirin, initial encounter; T45.525A Adverse effect of antithrombotic drugs, initial encounter; I77.89 Other specified disorders of arteries and arterioles; E11.51 Type 2 diabetes mellitus with diabetic peripheral angiopathy without gangrene
CPT/HCPCS: 36415; 36430; 36511; 74176-TC; 80048; 80053; 82962; 83605; 83735; 84100; 85025; 85027; 85610; 85730; 86850; 86900; 86901; 86922; 93005; 93010; 94640; 94760; J1644; J7030; P9034; P9038; P9058

== ENCOUNTER 2019-06-21 11:38 | Emergency (ER) | payer OTHER ==
[2019-06-21 12:07] VITALS: BMI 27.3
--- NOTE | 2019-06-21 12:50 | PDOC ---
History of Present Illness - General Chief Complaint: Pain Stated Complaint: TESTICULAR PAIN History Source: Patient Exam Limitations: Language Barrier (Arcarios [id number]) - History of Present Illness Initial Comments: 06/23/19 19:30 HPI: 64M PMH CAD s/p CABG, PAD, DM, HTN, CHF presenting w/ right inguinal pain and testicular swelling since 06/09/19 when pt underwent a right sided vascular angiogram by Dr. Rod complicated by retroperitoneal hematoma and hypotension requiring 2U PRBC. Pain described as dull with a change from colicky to constant in the past few days. Pt prompted to come to ED due to acute worsening of pain overnight. Denies f/c/n/v/cp/sob. Denies dysuria/hematuria/frequency. PMH: as above, LLE ulcer MED: see chart SURG: CABG, RLE bypass, RLE angiography NKDA Past History - Past Medical History Allergies/Adverse Reactions: Allergies Allergy/AdvReac Type Severity Reaction Status Date / Time No Known Drug Allergies Allergy Verified 06/21/19 12:07 Home Medications: Ambulatory Orders Aspirin [ASA -] 81 mg PO DAILY #60 tab.chew 06/12/14 Clopidogrel Bisulfate [Plavix -] 75 mg PO DAILY #30 tablet 06/12/14 Ranitidine [Zantac -] 150 mg PO BID 04/22/18 Furosemide [Lasix -] 40 mg PO DAILY #30 tablet 04/24/18 Gabapentin 600 mg PO TID 07/26/18 Atorvastatin Ca [Lipitor] 80 mg PO HS #30 tablet 07/27/18 Ferrous Sulfate 325 mg PO DAILY 04/15/19 Folic Acid 1 mg PO DAILY 04/15/19 Insulin Glargine,Hum.rec.anlog [Basaglar Kwikpen U-100] 30 units SQ DAILY Metoprolol Succinate [Toprol XL -] 50 mg PO DAILY 04/15/19 Multivitamins [Multivit ([facility] Formulary)] 1 tab PO DAILY 04/15/19 Oxycodone HCl/Acetaminophen [Percocet 10-325 mg Tablet] 1 tab PO Q12H PRN Zolpidem Tartrate [Ambien] 10 mg PO HS 04/15/19 Collagenase Clostridium Hist. [Santyl] 1 applic TP DAILY #90 oint...g. 05/02/19 Tamsulosin HCl [Flomax -] 0.4 mg PO DAILY 06/08/19 Amlodipine Besylate 5 mg PO DAILY 06/10/19 Losartan Potassium 100 mg PO DAILY 06/10/19 Metformin HCl [Glucophage] 1,000 mg PO BID 06/10/19 Anemia: No Asthma: No Cancer: No Cardiac Disorders: Yes (3 stents, 1998) CVA: No COPD: No CHF: No Dementia: No Diabetes: Yes GI Disorders: Yes (HERNIA) Disorders: Yes (PROSTATE) HTN: Yes Hypercholesterolemia: Yes Liver Disease: No Seizures: No Thyroid Disease: No - Surgical History Abdominal Surgery: No Appendectomy: No Cardiac Surgery: Yes (CABG, STENTS 1998) Cholecystectomy: No Lung Surgery: No Neurologic Surgery: No Orthopedic Surgery: No - Immunization History Immunization Up to Date: Yes - Psycho Social/Smoking Cessation Hx Smoking Status: No Smoking History: Never smoked Have you smoked in the past 12 months: No Number of Cigarettes Smoked Daily: 0 If you are a former smoker, when did you quit?: 40 years ago Cigars Per Day: 0 Hx Alcohol Use: No Drug/Substance Use Hx: No Substance Use Type: None Hx Substance Use Treatment: No Review of Systems - Review of Systems Comments:: 06/23/19 19:30 ROS: CONSTITUTIONAL: Denies F / C RESP: Denies SOB CARD: Denies chest pain GI: Denies N / V / D, other abdominal pain, inability to tolerate PO : Endorses testicular pain and swelling. Endorses Right inguinal pain. Denies dysuria, hematuria, frequency MSK: Denies myalgias *Physical Exam - Vital Signs Last Vital Signs Temp Pulse Resp BP Pulse Ox 98.5 F 71 18 137/51 L 100 06/21/19 12:02 06/21/19 12:02 06/21/19 12:02 06/21/19 12:02 06/21/19 12:02 - Physical Exam Comments: 06/23/19 19:31 PE: GEN: Visibly upset and in apparent pain, AAOx3. HEENT: NC/AT. No facial asymmetry. Moist mucous membranes. Normal voice. CV: S1/S2, RRR, no m/r/g LUNG: CTAB, no wheezes, crackles, rales, rhonchi. GI: +RCVAT. Reducible midline hernia. soft, ndnt, +BS, no guarding, no rebound. EXTREMITIES: Surgical scar of medial aspect of the RLE. Open LLE wound on the cook covered w/ what patient states is a home remedy and surrounded by gauze. SKIN: warm, dry, normal turgor PSYCH: normal mood and affect, upset and distressed 2/2 pain NEURO: Moving all extremities well. : +TTP of b/l testicles. There is a right sided inguinal mass/hernia that is tender with firmness of the right inguinal crease. Questionable mild erythema of the scrotum. Scrotal swelling hard to appreciate. No testicular masses palpated. Patient is not circumcised w/ no bleeding or discharge at meatus. ED Treatment Course - LABORATORY CBC & Chemistry Diagram: 06/21/19 14:20 06/21/19 14:20 Medical Decision Making - Medical Decision Making 06/21/19 13:25 64M c/o right inguinal pain and testicular swelling after right femoral catherization complicated by hypotension and retroperitoneal bleed s/p 2U PRBC. DDx - direct hernia, retroperitoneal bleed/hematoma, femoral aneurysm or pseudoaneursym. Less likely testicular torsion. - CBC, CMP, Type and Screen, coag - UA, UC - US vs CT - pain ctrl 06/21/19 14:54 CBC reviewed: Hgb 8.8 (8.6 on 06/11/19) 06/21/19 15:17 Pt reassessed, pain decreased, asking for food, will wait til after the scan before revisiting food. 06/21/19 20:54 Reassessed patient w/ cyracom [id number], pain is decreased, patient feeling better. CTA showing large retroperitoneal and extraperitoneal pelvic hemorrhage extending into right inguinal canal spilling into the scrotum. Prior 06/11/19 CT A/P found large right retroperitoneal hemorrhage. 06/21/19 21:00 Discussed patient and CTA findings w/ Dr. Rod (Vascular) - he will see him his office, states pt is noncompliant and Dr. Rod and his social group worker are working on setting him up with tertiary care center for a left femoral bypass. 06/21/19 21:25 Discharged home w/ close vascular surgery f/u, return precautions Discharge - Discharge Information Problems reviewed: Yes Clinical Impression/Diagnosis: Retroperitoneal bleed Condition: Improved Disposition: HOME - Follow up/Referral - Patient Discharge Instructions Additional Instructions: YOU WERE SEEN AND TREATED IN THE EMERGENCY DEPARTMENT. PLEASE TAKE TYLENOL FOR PAIN, FOLLOW THE INSTRUCTIONS ON THE BOTTLE. TAKE YOUR HOME MEDICATIONS PRESCRIBED. FOLLOW UP WITH DR. ROD (YOUR VASCULAR SURGEON) IN THE NEXT 2-3 DAYS REGARDING THIS VISIT TO THE ED. FOLLOW UP WITH YOUR PRIMARY CARE DOCTOR IN THE NEXT 2-3 DAYS REGARDING THIS VISIT TO THE ED. IMMEDIATELY RETURN TO THE ED IF YOU EXPERIENCE ANY OF THE FOLLOWING: - SEVERE TESTICULAR PAIN - SEVERE ABDOMINAL PAIN - SEVERE VOMITING - WORSENING OF YOUR SYMPTOMS - ANYTHING THAT CONCERNS YOU ___ FUE VISTO Y TRATADO EN EL DEPARTAMENTO DE EMERGENCIA. POR FAVOR TOME TYLENOL PARA EL DOLOR, SIGA LAS INSTRUCCIONES DE LA BOTELLA. MARIANO TUS MEDICAMENTOS EN CASA SEGN LO PRESCRITO. SEGUIR CON EL DR. ROD (REID CIRUJANO VASCULAR) EN LOS PRXIMOS 2-3 KO CON RESPECTO A ESTA VISITA AL ED. SEGUIMIENTO CON REID MDICO DE ATENCIN PRIMARIA EN LOS PRXIMOS 2-3 KO CON RESPECTO A ESTA VISITA AL ED. REGRESE INMEDIATAMENTE AL ED SI EXPERIMENTA ALGUNO DE LOS SIGUIENTES: - DOLOR TESTICULAR GRAVE - DOLOR ABDOMINAL DEBORAH - VMITOS GRAVES - ENFERMEDAD DE TUS SNTOMAS - CUALQUIER COSA QUE TE PREOCUPE - Post Discharge Activity
[2019-06-21] MEDS ORDERED: morphine CARPU-JECT 4 MG/1 ML DISP.SYRIN IVPUSH ONE (14:33)
[2019-06-21 14:46] LABS: EOS % 1.7 % (0-4.5); HEMATOCRIT 26.2 % (35.4-49); HEMOGLOBIN 8.8 GM/dL (11.7-16.9); LYMPH % 17.3 % (8-40); MCH 28.3 pg (25.7-33.7); MCHC 33.4 g/dl (32.0-35.9); MEAN CELL VOLUME 84.6 fl (80-96); MONO % 7.9 % (3.8-10.2); NEUT % 72.1 % (42.8-82.8); PLATELET COUNT 203 K/MM3 (134-434); RDW 14.3 % (11.9-15.9); WHITE BLOOD COUNT 5.5 K/mm3 (4.0-10.0)
[2019-06-21] MEDS ORDERED: morphine SULFATE 4 MG/ML VIAL ONE (14:52)
[2019-06-21 15:04] LABS: EPI CELLS 0.2 /HPF (0-5/HPF); HYALINE CASTS 0 /lpf (0-8); URINE APPEARANCE CLEAR; URINE BACTERIA 1.7 /hpf (NEGATIVE); URINE BILIRUBIN NEGATIVE (NEGATIVE); URINE COLOR YELLOW; URINE GLUCOSE (UA) TRACE (NEGATIVE); URINE KETONE NEGATIVE (NEGATIVE); URINE LEUK ESTERASE NEGATIVE (NEGATIVE); URINE NITRITE NEGATIVE (NEGATIVE); URINE PROTEIN 3+ (NEGATIVE); URINE RBC 3 /hpf (0-4); URINE WBC 0 /hpf (0-5)
[2019-06-21 15:12] LABS: INR 1.18 (0.83-1.09); PROTHROMBIN TIME (PATIENT) 13.9 SEC (9.7-13.0)
[2019-06-21 15:42] LABS: ALBUMIN 3.3 g/dl (3.4-5.0); BILIRUBIN,TOTAL 0.7 mg/dL (0.2-1); BLOOD UREA NITROGEN 22.4 mg/dL (7-18); CREATININE 1.4 mg/dL (0.55-1.3); POTASSIUM 4.5 mmol/L (3.5-5.1)
--- NOTE | 2019-06-21 16:16 | PDOC ---
Documentation entered by Dami Boyer SCRIBE, acting as scribe for Pierce Arredondo MD. Pierce Arredondo MD: This documentation has been prepared by the Merlin holliday Daniel, SCRIBE, under my direction and personally reviewed by me in its entirety. I confirm that the documentation accurately reflects all work, treatment, procedures, and medical decision making performed by me. Attending Attestation - Resident Resident Name: [facility] - ED Attending Attestation I have performed the following: I have examined & evaluated the patient, The case was reviewed & discussed with the resident, I agree w/resident's findings & plan - HPI HPI: 06/21/19 13:44 The patient is a 64 year old male with a past medical history of diabetes, HTN, CAD s/p CABG, and femoral artery disease s/p bypass of right lower leg here today for evaluation of right groin pain and testicular swelling. The patient reports that he had a right femoral angiogram on 06/09/[address] Rod which was complicated by retroperitoneal bleed and hypotension. He states that since the angiogram he has had right groin pain and testicular swelling which has gotten worse. Patient denies headache, lightheadedness. Denies fever, chills. Denies chest pain, shortness of breath. Denies nausea, vomiting, diarrhea, abdominal pain. Allergies: NKDA - Physicial Exam PE: 06/21/19 14:31 GENERAL: The patient is awake, alert, and fully oriented, in no acute distress. HEAD: Normal with no signs of trauma. EYES: Pupils equal, round and reactive to light, extraocular movements intact, sclera anicteric, conjunctiva clear with no pallor. ENT: Ears normal, nares patent, oropharynx clear without exudates. Moist mucous membranes. NECK: Normal range of motion, supple without lymphadenopathy, JVD, or masses. LUNGS: Breath sounds equal, clear to auscultation bilaterally. No wheezes/ crackles. HEART: Regular rate and rhythm, normal S1 and S2 without murmur or rub. ABDOMEN: No flank bruising or ecchymosis. Soft/nondistended. BS wnl. No guarding or rebound. No palpable masses. No hepatosplenomegaly. GENITAL: +swelling of scrotal scrotum and skin darkening. Testicles otherwise normal in size and position with no focal tenderness or masses. +palpable enlargement in right inguinal area, spermatic cord swelling vs hematoma? + thickening of inguinal area. +circumcised penis without urethral discharge. EXTREMITIES: +healed incision scar on right thigh from vein grafting for CABG. + palpable femoral pulse with soft tissue swelling but no palpable masses. Normal range of motion, no edema. No clubbing or cyanosis. No cords, erythema, or tenderness. Good right PT pulse. NEUROLOGICAL: Cranial nerves II through XII grossly intact. Normal speech, normal gait. PSYCH: Normal mood, normal affect. SKIN: Warm, Dry, normal turgor, no rashes or lesions noted. - Medical Decision Making 06/21/19 16:00 64-year-old male presents with right inguinal pain and scrotal swelling status post RLE catheterization/angioplasty on 06/10 for non-healing wound presents with painful swelling to R groin. ? groin/spermatic cord hematoma, r/o aneurysm or hernia, known retroperitonel hemorrhage. labs, ua wnl - hgb unchanged from discharged level, UA clear. CTA abd/pel discuss dispo with Dr. Rod, pt's vascular surgeon
[2019-06-21 18:59] VITALS: TEMP 98.1
[2019-06-21 20:16] VITALS: BP 150/68; PULSE 81
== END 2019-06-21 23:28 | disposition home or self-care (01) ==
LOC: JER 11:38
PROC: 3E033NZ Introduction of Analgesics, Hypnotics, Sedatives into Peripheral Vein, Percutaneous Approach (ICD-10-PCS; principal; 2019-06-21)
DX: I97.618 Postprocedural hemorrhage of a circulatory system organ or structure following other circulatory system procedure (principal); Y83.8 Other surgical procedures as the cause of abnormal reaction of the patient, or of later complication, without mention of misadventure at the time of the procedure; R58 Hemorrhage, not elsewhere classified; I11.0 Hypertensive heart disease with heart failure; I50.9 Heart failure, unspecified; I25.10 Atherosclerotic heart disease of native coronary artery without angina pectoris; Z95.1 Presence of aortocoronary bypass graft; Z95.5 Presence of coronary angioplasty implant and graft; E11.9 Type 2 diabetes mellitus without complications; Z79.4 Long term (current) use of insulin; I73.9 Peripheral vascular disease, unspecified; E78.00 Pure hypercholesterolemia, unspecified; Z98.890 Other specified postprocedural states
CPT/HCPCS: 36415; 72191-TC; 80053; 81003; 85025; 85610; 86850; 86900; 86901; 87086; 96374; 99284-25; Q9967

== ENCOUNTER 2019-08-02 10:07 | Inpatient (IN) | payer OTHER ==
--- NOTE | 2019-08-02 12:02 | PDOC ---
Documentation entered by Maya Page SCRIBE, acting as scribe for Celestino Helton MD. Celestino Helton MD: This documentation has been prepared by the Kaylee holliday Nirvannie, SCRIBE, under my direction and personally reviewed by me in its entirety. I confirm that the documentation accurately reflects all work, treatment, procedures, and medical decision making performed by me. History of Present Illness - General Chief Complaint: Chest Pain Stated Complaint: SOB Time Seen by Provider: 08/02/19 10:38 History Source: Patient, Old Records Exam Limitations: No Limitations - History of Present Illness Initial Comments: 08/02/19 11:05 CC: Shortness of breath. HPI: The patient is a 64 year old male, with a significant past medical history of HTN, HLD, DM, unknown surgery (1998) and endarterectomy (as per chart review), who presents to the emergency department with, 1 day of shortness of breath with associated midsternal chest pain. As per patient, his symptoms onset this morning at approximately 3-4AM lasting approximately an hour and half with associated chest pain and nonproductive cough. Patient notes that he feels as if there is water in his lungs thus, he called his mathematical sciences professor to whom advised him to report to the ED for further evaluation. He denies any recent fevers, chills, headache or dizziness. He denies any recent nausea, vomit, diarrhea or constipation. He denies any recent chest pain or shortness of breath. He denies any recent dysuria, frequency, urgency or hematuria. Allergies: NKDA Social History: Former smoker (Smoked for approximately 40 years). Primary Care Physician: Dr. Chi ([place]) Nurse Reviewer: Dr. Saleem Vascular Surgeon/Wound Care: Dr. Rod (Last appointment approximately 1 month ago). Past History - Past Medical History Allergies/Adverse Reactions: Allergies Allergy/AdvReac Type Severity Reaction Status Date / Time No Known Drug Allergies Allergy Verified 08/02/19 10:18 Home Medications: Ambulatory Orders Aspirin [ASA -] 81 mg PO DAILY #60 tab.chew 06/12/14 Clopidogrel Bisulfate [Plavix -] 75 mg PO DAILY #30 tablet 06/12/14 Ranitidine [Zantac -] 150 mg PO BID 04/22/18 Furosemide [Lasix -] 40 mg PO DAILY #30 tablet 04/24/18 Gabapentin 600 mg PO TID 07/26/18 Atorvastatin Ca [Lipitor] 80 mg PO HS #30 tablet 07/27/18 Ferrous Sulfate 325 mg PO DAILY 04/15/19 Folic Acid 1 mg PO DAILY 04/15/19 Insulin Glargine,Hum.rec.anlog [Basaglar Kwikpen U-100] 30 units SQ DAILY Metoprolol Succinate [Toprol XL -] 50 mg PO DAILY 04/15/19 Multivitamins [Multivit ([facility] Formul[facility])] 1 tab PO DAILY 04/15/19 Zolpidem Tartrate [Ambien] 10 mg PO HS 04/15/19 Tamsulosin HCl [Flomax -] 0.4 mg PO DAILY 06/08/19 Amlodipine Besylate 5 mg PO DAILY 06/10/19 Losartan Potassium 100 mg PO DAILY 06/10/19 Metformin HCl [Glucophage] 1,000 mg PO BID 06/10/19 Meloxicam [Mobic] 7.5 mg PO DAILY #30 tablet 06/24/19 Glipizide 1 tab PO ASDIR 08/02/19 Oxycodone HCl/Acetaminophen [Endocet 10-325 mg Tablet] 1 each PO BID 08/02/19 traZODone HCL [Trazodone HCl] 50 mg PO HS 08/02/19 Anemia: No Asthma: No Cancer: No Cardiac Disorders: Yes (3 stents, 1998) CVA: No COPD: No CHF: No Dementia: No Diabetes: Yes GI Disorders: Yes (HERNIA) Disorders: Yes (PROSTATE) HTN: Yes Hypercholesterolemia: Yes Liver Disease: No Seizures: No Thyroid Disease: No Other medical history: SHINGLES - Surgical History Abdominal Surgery: No Appendectomy: No Cardiac Surgery: Yes (CABG, STENTS 1998) Cholecystectomy: No Lung Surgery: No Neurologic Surgery: No Orthopedic Surgery: No - Immunization History Immunization Up to Date: Yes - Psycho Social/Smoking Cessation Hx Smoking Status: No Smoking History: Never smoked Have you smoked in the past 12 months: No Number of Cigarettes Smoked Daily: 0 If you are a former smoker, when did you quit?: 40 years ago Cigars Per Day: 0 Hx Alcohol Use: No Drug/Substance Use Hx: No Substance Use Type: None Hx Substance Use Treatment: No Review of Systems - Review of Systems Able to Perform ROS?: Yes Comments:: 08/02/19 11:06 A complete review of 10 out of 10 review of systems is taken and is negative apart from what is previously mentioned below and in the HPI. *Physical Exam - Vital Signs Last Vital Signs Temp Pulse Resp BP Pulse Ox 97.6 F 71 16 136/86 95 08/02/19 10:13 08/02/19 10:13 08/02/19 10:13 08/02/19 10:13 08/02/19 10:13 - Physical Exam Comments: 08/02/19 11:06 Vitals: Triage Vital signs reviewed General Appearance: no acute distress, well nourished well developed, Head: Atraumatic, normocephalic Nose: No nasal congestion Neck: Supple;No Nuchal rigidity Chest Wall: Nontender Cardiac: +Systolic ejection murmur. Regular rate, no rubs, no gallops, Lungs: +Crackles bilaterally. Abdomen: Soft, nondistended, normal bowel sounds, nontender to palpation Rectal: Exam deferred Extremities: Full range of motion to all extremities, no cyanosis, clubbing, or edema Skin: +3cm x 3cm area of oozing ulceration to the left calf. Warm and dry, no rashes, no petechiae Neuro: AOX3; Cranial Nerves 2-12 grossly intact, Strength intact to all extremities, Sensation intact to all extremities Psych: normal mood, normal affect Heart Score/ECG Review - History History: Slightly suspicious - Electrocardiogram EKG: Significant ST-depression - Age Age: 45-65 - Risk Factors Risk Factors Heart Score: Yes Hx Hypercholesterolemia, Yes Hx Hypertension, Yes Hx Diabetes, Yes Smoking History Based on the list above the patient has:: >/=3 risk factors or Hx atherosclerotic disease - Troponin Troponin: 1-3x normal limit - Score Heart Score - Total: 6 - ECG Impressions Comment:: 08/02/19 14:47 ST depressions and T wave inversions inferior laterally chronic unchanged from prior. Interpreted by me ED Treatment Course - LABORATORY CBC & Chemistry Diagram: 08/02/19 12:15 08/02/19 12:15 Medical Decision Making - Medical Decision Making 08/02/19 11:06 64 year old male, with a significant past medical history of HTN, HLD, DM, unknown surgery (1998) and endarterectomy (as per chart review), who presents to the emergency department with, 1 day of shortness of breath with associated midsternal chest pain. Plan is: CBC CMP BNP Troponin EKG Chest X-ray Reassess 08/02/19 14:47 heart score 6 crackles on lung exam CHF exacerbation most likely contributing factor to patient's demand ischemia vascular congestion on chest x-ray We will observe for diuresis cardiology consultation and further management. Discharge - Discharge Information Problems reviewed: Yes Clinical Impression/Diagnosis: Congestive heart failure (CHF) Qualifiers: Heart failure type: other Qualified Code(s): I50.9 - Heart failure, unspecified Condition: Fair - Admission Yes - Follow up/Referral - Patient Discharge Instructions - Post Discharge Activity
[2019-08-02 12:40] LABS: BASO % 0.9 % (0-2.0); HEMATOCRIT 28.7 % (35.4-49); HEMOGLOBIN 9.5 GM/dL (11.7-16.9); MCHC 33.2 g/dl (32.0-35.9); MEAN CELL VOLUME 84.3 fl (80-96); MEAN PLT VOLUME 9.8 fl (7.5-11.1); MONO % 9.3 % (3.8-10.2); NEUT % 64.8 % (42.8-82.8); PLATELET COUNT 137 K/MM3 (134-434); RBC 3.41 M/mm3 (4.00-5.60); RDW 15.7 % (11.9-15.9)
[2019-08-02 13:14] LABS: ALBUMIN 3.1 g/dl (3.4-5.0); BILIRUBIN,TOTAL 0.4 mg/dL (0.2-1); BLOOD UREA NITROGEN 30.7 mg/dL (7-18); CREATININE 1.8 mg/dL (0.55-1.3); N-TERMINAL BNP 2228.3 pg/ml (5-125); POTASSIUM 4.7 mmol/L (3.5-5.1); TOT PROT 6.6 g/dl (6.4-8.2)
[2019-08-02] MEDS ORDERED: FUROSEMIDE 40 MG/4 ML INJECTABLE VIAL IVPUSH ONE (14:08)
--- NOTE | 2019-08-02 14:26 | CON.CARD ---
Consult Consult Specialty:: Cardiology Referred by:: Dr. Helton Reason for Consultation:: CHF - History of Present Illness Chief Complaint: SOB History of Present Illness: 64M CAD s/p multiple PCI, CABG, CKD, HTN, carotid stenosis s/p CEA, PAD, DM, chronic systolic CHF with mildly reduced LVEF presents to ER with one night of orthopnea , SOB and associated chest tightness. In ER, found to have b/l rales and CXR c/w CHF. Patient admits to eating salty food/meals recently. He is scheduled for LE angio and possible PTCA at [facility] in early August. 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, Other (3rd nerve palsy) Cardio/Vascular: Yes: CAD, HTN, Hyperlipdemia, Other (PAD) Pulmonary: Yes: Asthma Gastrointestinal: No: Ascites, Cancer, Constipation, Crohn's Disease, Diverticulitis, Diverticulosis, Esophageal Varices, Gastritis, GERD, GI Bleed, Hemorrhoids, Hiatal Hernia, Inflamatory Bowel Disease, Irritable Bowel Disease, Pancreatitis, Peptic Ulcer Disease, Ulcerative Colitis, Other Renal/: Yes: Renal Inusuff Heme/Onc: No: Anemia, B12 Deficiency, Bleeding Disorder, Cancer, Current Chemotherapy, Current Radiation Therapy, Hemochromatosis, Hypercoaguable State, Myeloproliferative Synd, Sickle Cell Disease, Sickle Cell Trait, Thrombocytopenia, Other Rheumatology: Yes: Fibromyalgia Endocrine: Yes: Diabetes Mellitus - Past Surgical History Past Surgical History: Yes: CABG, Stent Additional Surgical History: Carotid endarterectomy - Alcohol/Substance Use Hx Alcohol Use: No - Smoking History Smoking history: Former smoker Have you smoked in the past 12 months: No Aproximately how many cigarettes per day: 0 If you are a former smoker, when did you quit?: 40 years ago - Social History Usual Living Arrangement: Alone ADL: Independent History of Recent Travel: No Home Medications - Allergies Allergies/Adverse Reactions: Allergies Allergy/AdvReac Type Severity Reaction Status Date / Time No Known Drug Allergies Allergy Verified 08/02/19 10:18 - Home Medications Home Medications: Ambulatory Orders Aspirin [ASA -] 81 mg PO DAILY #60 tab.chew 06/12/14 Clopidogrel Bisulfate [Plavix -] 75 mg PO DAILY #30 tablet 06/12/14 Ranitidine [Zantac -] 150 mg PO BID 04/22/18 Furosemide [Lasix -] 40 mg PO DAILY #30 tablet 04/24/18 Gabapentin 600 mg PO TID 07/26/18 Atorvastatin Ca [Lipitor] 80 mg PO HS #30 tablet 07/27/18 Ferrous Sulfate 325 mg PO DAILY 04/15/19 Folic Acid 1 mg PO DAILY 04/15/19 Insulin Glargine,Hum.rec.anlog [Basaglar Kwikpen U-100] 30 units SQ DAILY Metoprolol Succinate [Toprol XL -] 50 mg PO DAILY 04/15/19 Multivitamins [Multivit ([facility] Formul[facility])] 1 tab PO DAILY 04/15/19 Zolpidem Tartrate [Ambien] 10 mg PO HS 04/15/19 Tamsulosin HCl [Flomax -] 0.4 mg PO DAILY 06/08/19 Amlodipine Besylate 5 mg PO DAILY 06/10/19 Losartan Potassium 100 mg PO DAILY 06/10/19 Metformin HCl [Glucophage] 1,000 mg PO BID 06/10/19 Meloxicam [Mobic] 7.5 mg PO DAILY #30 tablet 06/24/19 Glipizide 1 tab PO ASDIR 08/02/19 Oxycodone HCl/Acetaminophen [Endocet 10-325 mg Tablet] 1 each PO BID 08/02/19 traZODone HCL [Trazodone HCl] 50 mg PO HS 08/02/19 Family Medical History Family History: Unremarkable (not pertinent to this presentation) Review of Systems - Review of Systems Constitutional: reports: No Symptoms Eyes: reports: No Symptoms HENT: reports: No Symptoms Cardiovascular: reports: Shortness of Breath Respiratory: reports: Orthopnea, SOB on Exertion Gastrointestinal: denies: No Symptoms, Abdominal Pain, Bloating, Constipation, Diarrhea, Dysphagia, Indigestion, Melena, Nausea, Rectal Bleeding, Vomiting, Vomiting Blood, Other Genitourinary: denies: No Symptoms, Burning, Discharge, Dysuria, Flank Pain, Frequency, Hematuria, Incontinence, Lesions, Menses, Pain, Testicular Mass, Testicular Pain, Testicular Swelling, Urgency, Vaginal Bleeding, Other Breasts: denies: No Symptoms Reported, See HPI, Breast Implants, Discharge from Nipple, Lumps, Pain, Skin Changes, Other Musculoskeletal: denies: No Symptoms, Back Pain, Crepitus, Decreased ROM, Extremity Pain, Joint Pain, Joint Swelling, Muscle Pain, Muscle Cramps, Muscle Weakness, Other Integumentary: denies: No Symptoms, Blister, Bruising, Change in Color, Eczema, Erythema, Incision, Lesions, Lump, Pallor, Pruritis, Rash, Wound, Other Neurological: denies: No Symptoms, Change in LOC, Change in Speech, Confusion, Dizziness, Headache, Incoordination, Numbness, Parasthesia, Pre-Existing Deficit , Seizure, Syncope, Tremors, Unsteady Gait, Weakness, Other Endocrine: denies: No Symptoms, Excessive Sweating, Flushing, Increased Hunger, Increased Thirst, Intolerance to Cold, Intolerance to Heat, Unexplained Weight Gain, Unexplained Weight Loss, Other Hematology/Lymphatic: denies: No Symptoms, Easily Bruised, Excessive Bleeding, Swollen Glands, Other Psychiatric: denies: No Symptoms, Altered Sleep Pattern, Anxiety, Depression, Hallucinations, Panic, Paranoia, Suicidal, Other - Risk Factors Known Risk Factors: Yes: Diabetes Mellitus, Hypertension, Prior OK /Emb Stroke, Other (Known CAD.) Vital Signs: Vital Signs Temperature 97.6 F 08/02/19 10:13 Pulse Rate 71 08/02/19 13:45 Respiratory Rate 20 08/02/19 13:45 Blood Pressure 151/74 08/02/19 13:45 O2 Sat by Pulse Oximetry (%) 94 L 08/02/19 13:45 Constitutional: Yes: No Distress, Calm Eyes: Yes: Conjunctiva Clear Respiratory: Yes: Other (bilateral rales 1/2 way up) Gastrointestinal: Yes: Soft Cardiovascular: Yes: Regular Rate and Rhythm JVD: No Carotid Bruit: No Heart Sounds: Yes: S1, S2 (RRR) Edema: No Peripheral Pulses WNL: No Peripheral Pulses: 1+ Left Doralis Pedis, 2+ Right Dorsalis Pedis Neurological: Yes: Alert, Oriented ...Motor Strength: WNL Psychiatric: Yes: WNL - Other Data Labs, Other Data: CBC, BMP 08/02/19 12:15 08/02/19 12:15 Troponin, BNP 08/02/19 12:15 Troponin I 0.07 H B-Natriuretic Peptide 2228.3 H Troponin, BNP 08/02/19 12:15 Troponin I 0.07 H B-Natriuretic Peptide 2228.3 H NSR 74bpm, borderline LVH with TWI V4-V6 chronic Echo: Other (Recent office echo: 45-50% EF) Imaging - Results Chest X-ray: Other (cardiomegaly, sternotomy wires, increased PVC) EKG: Image Reviewed Assessment/Plan DATA: Nuclear stress (office) within last 2 months: moderate, fixed inferolateral defect c/w prior infarct, no ischemia EF 34% Echo (office) within last 6 months: EF 45-50%, no sig valve disease Carotid US (office) within last 6 months: b/l plaque without sig stenosis. IMP: Acute on chronic systolic CHF likely triggered by dietary indiscretion CAD s/p CABG, multiple prior PCIs PAD with occluded L. SFA with planned angiogram, possible PTCA vs open bypass scheduled at [facility] early August Carotid stenosis s/p b/l CEA Chronic HTN CKF DM Recent Herpes Zoster of right chest REC: 1. Admit tele for IV Lasix, daily weights and BMP to monitor renal fx 2. Repeat echo 3. Can cycle cardiac enzymes, suspect borderline elevation due to decomp CHF in setting CKD 4. Continue home meds ASA/Atorva 80/Plavix/Toprol XL 25/Aldactone 25 and Losartan 100mg daily 5. Would confirm outpatient DM regimen (sees Dr. Mckay [facility] @ [address] [place] [address] , ). Will follow.
[2019-08-02] MEDS ORDERED: ASPIRIN 325 MG TABLET PO ONE (14:35)
[2019-08-02] MEDS ORDERED: ASPIRIN 325 MG ENTERIC COATED TABLET (FP) ONE (14:50)
--- NOTE | 2019-08-02 15:43 | HP ---
Addendum entered and electronically signed by Norma Wetzel, RESIDENT 08/03/19 07 :25: NOTE: pt has known LLE ulcer, claudication - SFA occlusion. needing bypass - pt is scheduled for procedure hx RLE fem bypass 2013 on plavix please see old notes from Dr. Rod Original Note: <Norma Wetzel - Last Filed: 08/02/19 19:28> Hospitalist Medicine Admission 64 y/o M with hx CAD s/p multiple PCI, CABG, CKD, HTN, carotid stenosis s/p CEA , PAD, DM, chronic systolic CHF with mildly reduced LVEF presents to ER with one night of orthopnea , SOB and associated chest tightness. Pt states that his sx began suddenly. Does endorse eating high salt foods, as he recently ate stew , rice, and goat meat. Otherwise, no sick contacts or inciting fx. Has been compliant with his lasix. Denies MILLS, fever, chills, SOB, chest pain or pressure or changes in urinary or bowel function. Last saw his cardio, Dr. Saleem 2 weeks ago. Does not endorse medication changes, besides change in his long- acting insulin to 40u SQ qAM. Per pharmacy, he was to start up to 50u, but has not yet picked up his prescription. Pt lives at home with his family. Ambulates independently. In ER, found to have b/l rales and CXR c/w CHF. Was given IV lasix and seen by his cardio, Dr. Saleem. Of note, pt states that he is supposed to have a procedure done for a "clogged vein" in his lower extremities. It will be done by a vascular doctor on and av. His PMD Is Dr. Woody Sanchez [phone]. PMH: as above PsxH: open heart sx, cardiac cath, past LE vascular sx with Dr. 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 Denies alcohol, drug, or cigarette use HOME MEDICATIONS: Verified with pharmacy Home Medications Medication Instructions Recorded Aspirin [ASA -] 81 mg PO DAILY #60 tab.chew 06/12/14 Clopidogrel Bisulfate [Plavix -] 75 mg PO DAILY #30 tablet 06/12/14 Ranitidine [Zantac -] 150 mg PO BID 04/22/18 Furosemide [Lasix -] 40 mg PO DAILY #30 tablet 04/24/18 Gabapentin 600 mg PO TID 07/26/18 Atorvastatin Ca [Lipitor] 80 mg PO HS #30 tablet 07/27/18 Ferrous Sulfate 325 mg PO DAILY 04/15/19 Folic Acid 1 mg PO DAILY 04/15/19 Insulin Glargine,Hum.rec.anlog 50 units SQ DAILY 04/15/19 [Basaglar Kwikpen U-100] Metoprolol Succinate [Toprol XL -] 50 mg PO DAILY 04/15/19 Multivitamins [Multivit ([facility] 1 tab PO DAILY 04/15/19 Formulary)] Zolpidem Tartrate [Ambien] 10 mg PO HS 04/15/19 Tamsulosin HCl [Flomax -] 0.4 mg PO DAILY 06/08/19 Amlodipine Besylate 5 mg PO DAILY 06/10/19 Losartan Potassium 100 mg PO DAILY 06/10/19 Metformin HCl [Glucophage] 1,000 mg PO BID 06/10/19 Meloxicam [Mobic] 7.5 mg PO DAILY #30 tablet 06/24/19 Glipizide 1 tab PO ASDIR 08/02/19 Oxycodone HCl/Acetaminophen 1 each PO BID 08/02/19 [Endocet 10-325 mg Tablet] traZODone HCL [Trazodone HCl] 50 mg PO HS 08/02/19 PHYSICAL EXAMINATION Vital Signs - 24 hr 08/02/19 08/02/19 10:13 13:45 Temperature 97.6 F Pulse Rate 71 Pulse Rate [ 71 Apical] Respiratory 16 20 Rate Blood Pressure 136/86 Blood Pressure 151/74 [Left Arm] O2 Sat by Pulse 95 94 L Oximetry (%) General: resting comfortably, in NAD HEENT: NCAT, PERRLA neck: supple. no JVD noticed cardio: S1, S2 RRR. no r/m/g pulm: +bibasilar rales. no accessory m usage abdomen: +obese, distended. nontender, no guarding or rigidity LE: 2+ pulses. +vertical scars along R lateral cook from past LE sx. +LLE with 2x2cm ulcer w/ yellow base and serous discharge. 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-12 grossly intact psych: appropriate affect Laboratory Results - last 24 hr 08/02/19 08/02/19 12:15 12:15 WBC 4.0 RBC 3.41 L Hgb 9.5 L Hct 28.7 L MCV 84.3 MCH 28.0 MCHC 33.2 RDW 15.7 Plt Count 137 D MPV 9.8 Absolute Neuts (auto) 2.6 Neutrophils % 64.8 Lymphocytes % 23.0 D Monocytes % 9.3 Eosinophils % 2.0 Basophils % 0.9 Nucleated RBC % 0 Sodium 142 Potassium 4.7 Chloride 113 H Carbon Dioxide 24 Anion Gap 5 L BUN 30.7 H Creatinine 1.8 H Est GFR (CKD-EPI)AfAm 45.09 Est GFR (CKD-EPI)NonAf 38.91 Random Glucose 170 H Calcium 8.0 L Total Bilirubin 0.4 AST 30 ALT 23 Alkaline Phosphatase 115 Troponin I 0.07 H B-Natriuretic Peptide 2228.3 H Total Protein 6.6 Albumin 3.1 L EKG: +chronic lateral depressions - similar to previous ekg, w/LVH, qtc 461ms. CXR:new congestive changes with prominent mediastinum and sternal sutures with clips. Per cardio note Echo: Other (Recent office echo: 45-50% EF) Nuclear stress (office) within last 2 months: moderate, fixed inferolateral defect c/w prior infarct, no ischemia EF 34% Echo (office) within last 6 months: EF 45-50%, no sig valve disease Carotid US (office) within last 6 months: b/l plaque without sig stenosis. ASSESSMENT/PLAN: 64 y/o M with hx CAD s/p multiple PCI, CABG, CKD, HTN, carotid stenosis s/p CEA , PAD, DM, chronic systolic CHF with mildly reduced LVEF presents to ER with one night of orthopnea , SOB and associated chest tightness. #Acute on chronic systolic CHF 2/2 increased salt -c/w lasix 40mg IVP qd -daily wts, i/o, na control 2g -repeat ECHO during admission -f/u BMP to check lytes -c/w aldactone -cardio on board: Dr. Saleem #hx multiple PCI, CABG -c/w asa, plavix #HLD -c/w statin #LLE ulceration -f/u ESR, CRP #hx LE "clots" -f/u arterial duplex -c/w neurontin #abdominal distension -may be 2/2 CHF -f/u abd sono #IDDM -f/u a1c -c/w levemir 20u sqAM for now. was on 40-50 at home however may have dietary change in hospital. avoid hypoglycemia -c/w ISS, BGM ACHS. will adjust accordingly #BPH -c/w flomax #HTN -c/w losartan, toprol #insomnia -c/w ambien #F/E/N avoid IVF, as CHF continue to follow lytes na controlled diet, diabetic #PPX DVT: on plavix, SCD's. early ambulation GI: on pepcid #Dispo tele- obs monitoring anticipate d/c 24-48hrs if cont to improve Visit type - Emergency Visit Emergency Visit: Yes ED Registration Date: 08/02/19 Care time: The patient presented to the Emergency Department on the above date and was hospitalized for further evaluation of their emergent condition. - New Patient This patient is new to me today: Yes Date on this admission: 08/02/19 - Critical Care Critical Care patient: No <Stanley Vazquez - Last Filed: 08/03/19 02:13> Seen and examined; independently verified all rodriguez historical information and PE data alongisde all labs, imaging and diagnostics. Agree with above aside from as supplemented by myself. Discussed the case at length with the resident team and indicated consulting serviices. Appreciate the help from all services in the congoing care of this patient. Admits top dietary indescretion but states that they are compliant with meications. They have a history of HFrEF and CAD with multiple PCIs and are s/ p CABG. 10 sys ROS done and negative aisde from HPI VS, labs, imaging reviewed NAD, AAO, resting in bed NC AT EOMI PERRLA HR wnl, +s1/2 Mild b/l crackles, w/ sym exp Trace LE edema, postsurgical changes without acute findings Trachea midline without LN Skin without rashes or breakdown CXR reviewed, CV consult reviewed, prior admissions reviewed. EKG reviewed, ER tele strips reviewed A/P: A on C HFrEF 2/2 diet issues (drinks lots of H20 and eats lots of salt, seems in general unaware of stereotyped recs.) CAD s/p multiple PCI, CABG PAD with occluded L. SFA with planned angiogram, possible PTCA vs open bypass scheduled at [place] early August. He has an open wound that is stable. Consult wound care while inpatient for continued monitoring but this is nonurgent. DONALD s/p b/l CEA Hx HTN CKD-IV Uncontrolled DM ATTENDING PHYSICIAN STATEMENT I saw and evaluated the patient. I reviewed the resident's note and discussed the case with the resident. I agree with the resident's findings and plan as documented. SUBJECTIVE: OBJECTIVE: ASSESSMENT AND PLAN:
[2019-08-02] MEDS: INSULIN SLIDING SCALE (NOVOLOG) 1 VIAL SQ SCH ×2 (16:43→22:52)
[2019-08-02] MEDS ORDERED: ZOLPIDEM TARTRATE 5 MG TABLET PO PRN (22:00)
[2019-08-02] MEDS ORDERED: GABAPENTIN 100 MG CAPSULE (FP) ONE (22:31)
[2019-08-02] MEDS ORDERED: ATORVASTATIN CA 80 MG TABLET (FP) ONE (22:31)
[2019-08-02] MEDS: GABAPENTIN 300 MG CAPSULE (FP) PO SCH (22:34)
[2019-08-02] MEDS: FAMOTIDINE 20 MG TABLET PO SCH (22:34)
[2019-08-02] MEDS: ATORVASTATIN CA 80 MG TABLET (FP) PO SCH (22:34)
[2019-08-03] MEDS ORDERED: HEPARIN NA (PORCINE) 5,000 UNITS/ML 1ML VIAL IVPUSH PRN ×2 (01:25)
[2019-08-03] MEDS ORDERED: HEPARIN - 25,000 UNIT in SODIUM CHLORIDE 495 ML IV SCH (01:30)
[2019-08-03] MEDS ORDERED: ACETAMINOPHEN 1000 MG/100 ML VIAL (NON FORMULARY) IVPB PRN (03:11)
[2019-08-03] MEDS ORDERED: ACETAMINOPHEN 325 MG TABLET (FP) PO PRN (03:21)
[2019-08-03] MEDS: ACETAMINOPHEN 325 MG TABLET (FP) PO PRN ×2 (03:42→22:19)
[2019-08-03 05:14] VITALS: BMI 28.0
[2019-08-03] MEDS: GABAPENTIN 300 MG CAPSULE (FP) PO SCH ×3 (06:18→22:12)
[2019-08-03] MEDS: INSULIN SLIDING SCALE (NOVOLOG) 1 VIAL SQ SCH ×4 (06:19→22:12)
[2019-08-03] MEDS: INSULIN (LEVEMIR) 100 UNITS/ML UNITS SQ SCH (06:19)
[2019-08-03] MEDS: CLOPIDOGREL BISULFATE 75 MG TABLET (FP) PO SCH (10:26)
[2019-08-03] MEDS: ASPIRIN 81 MG CHEWABLE TABLETS PO SCH (10:26)
[2019-08-03] MEDS: FUROSEMIDE 40 MG/4 ML INJECTABLE VIAL IVPUSH SCH (10:27)
[2019-08-03] MEDS: LOSARTAN POTASSIUM 50 MG TABLET (FP) PO SCH (10:27)
[2019-08-03] MEDS: SPIRONOLACTONE 25 MG TABLET (FP) PO SCH (10:27)
[2019-08-03] MEDS: metoPROLOL SUCCINATE 25 MG TAB.SR.24H (FP) PO SCH (10:27)
[2019-08-03] MEDS: TAMSULOSIN HCL 0.4 MG CAP PO SCH (10:27)
[2019-08-03] MEDS: FERROUS SO4 325 MG TABLET (FP) PO SCH (10:27)
[2019-08-03] MEDS: FOLIC ACID 1 MG TABLET (FP) PO SCH (10:27)
[2019-08-03] MEDS: MULTIVITAMINS (DAILY MVI) TABLET (FP) PO SCH (10:27)
[2019-08-03] MEDS: FAMOTIDINE 20 MG TABLET PO SCH ×2 (10:27→22:12)
--- NOTE | 2019-08-03 10:48 | EKG ---
Test Reason : Blood Pressure : / mmHG Vent. Rate : 074 BPM Atrial Rate : 074 BPM P-R Int : 200 ms QRS Dur : 108 ms QT Int : 416 ms P-R-T Axes : 048 000 151 degrees QTc Int : 461 ms NORMAL SINUS RHYTHM POSSIBLE LEFT ATRIAL ENLARGEMENT LEFT VENTRICULAR HYPERTROPHY WITH REPOLARIZATION ABNORMALITY ABNORMAL ECG WHEN COMPARED WITH ECG OF 10-JUN-2019 08:41, CRITERIA FOR INFERIOR INFARCT ARE NO LONGER PRESENT T WAVE INVERSION MORE EVIDENT IN ANTERIOR LEADS Confirmed by JACKIE PRATT MD ([id number]) on 08/03/2019 10:48:21 AM Referred By: Confirmed By:JACKIE PRATT MD
--- NOTE | 2019-08-03 11:05 | PN ---
Progress Note (short form) - Note Progress Note: s: sob improving. no chest pain, palps, dizziness. Current Medications Acetaminophen (Tylenol -) 650 mg PO Q6H PRN PRN Reason: PAIN LEVEL 6-10 Last Admin: 08/03/19 03:42 Dose: 650 mg Aspirin (Asa -) 81 mg PO DAILY [facility] Last Admin: 08/03/19 10:26 Dose: 81 mg Atorvastatin Calcium (Lipitor -) 80 mg PO HS [facility] Last Admin: 08/02/19 22:34 Dose: 80 mg Clopidogrel Bisulfate (Plavix -) 75 mg PO DAILY [facility] Last Admin: 08/03/19 10:26 Dose: 75 mg Famotidine (Pepcid -) 20 mg PO BID [facility] Last Admin: 08/03/19 10:27 Dose: 20 mg Ferrous Sulfate (Feosol -) 325 mg PO DAILY [facility] Last Admin: 08/03/19 10:27 Dose: 325 mg Folic Acid (Folic Acid -) 1 mg PO DAILY [facility] Last Admin: 08/03/19 10:27 Dose: 1 mg Furosemide (Lasix Injection -) 40 mg IVPUSH DAILY [facility] Last Admin: 08/03/19 10:27 Dose: 40 mg Gabapentin (Neurontin -) 600 mg PO TID [facility] Last Admin: 08/03/19 06:18 Dose: 600 mg Insulin Aspart (Novolog Vial Sliding Scale -) 1 vial SQ ACHS [facility]; Protocol Last Admin: 08/03/19 06:19 Dose: Not Given Insulin Detemir (Levemir Vial) 20 units SQ AM [facility] Last Admin: 08/03/19 06:19 Dose: Not Given Losartan Potassium (Cozaar -) 100 mg PO DAILY [facility] Last Admin: 08/03/19 10:27 Dose: 100 mg Metoprolol Succinate (Toprol Xl -) 25 mg PO DAILY [facility] Last Admin: 08/03/19 10:27 Dose: 25 mg Multivitamins/Minerals/Vitamin C (Tab-A-Vit -) 1 tab PO DAILY [facility] Last Admin: 08/03/19 10:27 Dose: 1 tab Spironolactone (Aldactone -) 25 mg PO DAILY [facility] Last Admin: 08/03/19 10:27 Dose: 25 mg Tamsulosin HCl (Flomax -) 0.4 mg PO DAILY@0830 [facility] Last Admin: 08/03/19 10:27 Dose: 0.4 mg Zolpidem Tartrate (Ambien -) 10 mg PO HS PRN PRN Reason: INSOMNIA Vital Signs Period Temp Pulse Resp BP Sys/[place] Pulse Ox Last 24 Hr 97.4 F-98.5 F 67-76 16-20 123-159/54-77 93-96 Constitutional: Yes: No Distress, Calm Eyes: Yes: Conjunctiva Clear Respiratory: Yes: Other (bilateral rales at bases) Gastrointestinal: Yes: Soft Cardiovascular: Yes: Regular Rate and Rhythm JVD: No Carotid Bruit: No Heart Sounds: Yes: S1, S2 (RRR) Edema: No Peripheral Pulses WNL: No Peripheral Pulses: 1+ Left Doralis Pedis, 2+ Right Dorsalis Pedis Neurological: Yes: Alert, Oriented no jaundice, diaphoresis not agitated NSR 74bpm, borderline LVH with TWI V4-V6 chronic Echo: Other (Recent office echo: 45-50% EF) Imaging - Results Chest X-ray: Other (cardiomegaly, sternotomy wires, increased PVC) EKG: Image Reviewed Assessment/Plan DATA: Nuclear stress (office) within last 2 months: moderate, fixed inferolateral defect c/w prior infarct, no ischemia EF 34% Echo (office) within last 6 months: EF 45-50%, no sig valve disease Carotid US (office) within last 6 months: b/l plaque without sig stenosis. IMP: Acute on chronic systolic CHF likely triggered by dietary indiscretion CAD s/p CABG, multiple prior PCIs PAD with occluded L. SFA with planned angiogram, possible PTCA vs open bypass scheduled at [place] early August Carotid stenosis s/p b/l CEA Chronic HTN CKF DM Recent Herpes Zoster of right chest REC: 1. labs pending, remains with rales on exam. continue IV Lasix with daily weights and BMP to monitor renal fx 2. Repeat echo pending 3. borderline trop elevation with flat trend likely due to decomp CHF in setting CKD 4. Continue home meds ASA/Atorva 80/Plavix/Toprol XL 25/Aldactone 25 and Losartan 100mg daily
[2019-08-03 11:18] LABS: BLOOD UREA NITROGEN 27.4 mg/dL (7-18); CALCIUM 8.2 mg/dL (8.5-10.1); CREATININE 1.5 mg/dL (0.55-1.3); POTASSIUM 4.2 mmol/L (3.5-5.1)
--- NOTE | 2019-08-03 15:17 | ECHO ---
Name: REDDYSONIAYOVANY Exam:Adult Echocardiogram Study Date: 08/03/2019 09:05 AM Age: 64 yrs Reason For Study: acute on chronic systolic chf Height: 68 in Weight: 172 lb BSA: 1.9 m2 MMode/2D Measurements & Calculations IVSd: 1.00 cm Ao root diam: 3.2 cm LVIDd: 5.3 cm LA dimension: 4.2 cm LVIDs: 4.0 cm LVPWd: 1.2 cm LVPWs: 1.9 cm EDV(Teich): 136.1 ml ESV(Teich): 70.3 ml LVOT diam: 2.4 cm LAV (MOD-bp): 64.0 ml Doppler Measurements & Calculations MV E max manjit: 108.1 cm/sec Ao V2 max: 117.8 cm/sec MV A max manjit: 55.3 cm/sec Ao max P.6 mmHg MV E/A: 2.0 MV dec time: 0.15 sec NARESH(V,D): 2.9 cm2 LV V1 max P.4 mmHg MR max manjit: 490.6 cm/sec LV V1 max: 78.0 cm/sec MR max P.3 mmHg PA V2 max: 71.6 cm/sec Med Peak E' Manjit: 5.5 cm/sec PA max P.1 mmHg Med E/e': 19.7 Lat Peak E' Manjit: 7.6 cm/sec Lat E/e': 14.3 Left Ventricle The left ventricle is grossly normal size. Left ventricular systolic function is severely reduced. Th ere is severe global hypokinesis of the left ventricle. Right Ventricle The right ventricle is grossly normal size. Atria The left atrium is mildly dilated. The right atrium is mildly dilated. Mitral Valve There is mild mitral valve thickening. There is no mitral valve stenosis. There is moderate mitral regurgitation. Tricuspid Valve The tricuspid valve is normal in structure and function. There is no tricuspid stenosis. There was insufficient TR detected to calculate RV systolic pressure. Aortic Valve The aortic valve is normal in structure and function. No hemodynamically significant valvular aortic stenosis. No aortic regurgitation is present. Pulmonic Valve The pulmonic valve is not well visualized. Great Vessels The aortic root is normal size. Interpretation Summary The left ventricle is grossly normal size. Left ventricular systolic function is severely reduced. There is severe global hypokinesis of the left ventricle. There is moderate mitral regurgitation. The left atrium is mildly dilated. The right atrium is mildly dilated. There was insufficient TR detected to calculate RV systolic pressure. MD Smith Mason 08/03/2019 03:17 PM
--- NOTE | 2019-08-03 16:09 | PN ---
Addendum entered and electronically signed by Norma Wetzel, RESIDENT 08/03/19 16 :45: ECHO: LVSF severely reduced, severe global hypokinesis, mod MR Original Note: Progress Note (short form) - Note Progress Note: Hospitalist Medicine States that he feels well today; without complaint. Confirmed w/ vascular, he is scheduled for LE arterial bypass. Findings on art duplex are not new. Vitals 08/03/19 15:48 Temperature 98.2 F Pulse Rate 73 Respiratory 18 Rate Blood Pressure 140/69 Physical Exam General: resting comfortably, in NAD HEENT: NCAT, PERRLA neck: supple. no JVD noticed cardio: S1, S2 RRR. no r/m/g pulm: +bibasilar rales. no accessory m usage abdomen: +obese, distended. nontender, no guarding or rigidity LE: 2+ pulses. +vertical scars along R lateral cook from past LE sx. +LLE with 2x2cm ulcer w/ yellow base and serous discharge. 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: Workers Compensation Claims Specialist 2-12 grossly intact psych: appropriate affect Laboratory Tests 08/02/19 08/03/19 08/03/19 23:00 10:30 10:30 ESR 44 H Sodium 143 Potassium 4.2 BUN 27.4 H Creatinine 1.5 H Random Glucose 115 H Calcium 8.2 L Troponin I 0.07 H 08/03/19 10:30 ESR Sodium Potassium BUN Creatinine Random Glucose Calcium Troponin I 0.05 EKG: +chronic lateral depressions - similar to previous ekg, w/LVH, qtc 461ms. CXR:new congestive changes with prominent mediastinum and sternal sutures with clips. art duplex LE: occluded R common and superficial femoral aa., as well as poplliteal a., occluded R superficial femoral and distal popliteal aa. (not new findings) abdom sono: R pleural effusion, trace ascites, hepatosplenomegaly, no evidence of acute pathology in abdomen Per cardio note Echo: Other (Recent office echo: 45-50% EF) Nuclear stress (office) within last 2 months: moderate, fixed inferolateral defect c/w prior infarct, no ischemia EF 34% Echo (office) within last 6 months: EF 45-50%, no sig valve disease Carotid US (office) within last 6 months: b/l plaque without sig stenosis. ASSESSMENT/PLAN: 64 y/o M with hx CAD s/p multiple PCI, CABG, CKD, HTN, carotid stenosis s/p CEA , PAD, DM, chronic systolic CHF with mildly reduced LVEF presents to ER with one night of orthopnea , SOB and associated chest tightness. #Acute on chronic systolic CHF 2/2 increased salt -c/w lasix 40mg IVP qd -daily wts, i/o, na control 2g -repeat ECHO - still pending -f/u BMP to check lytes -c/w aldactone -cardio on board: Dr. Saleem #hx multiple PCI, CABG -c/w asa #HLD -c/w statin #LLE ulceration -ESR (44); however nonspecific, may reflect any inflammation -f/u CRP 0.4 #hx known PAD -c/w neurontin -on plavix -planned for bypass after d/c #IDDM -a1c 8.2% -c/w levemir 20u sqAM for now. was on 40-50 at home however may have dietary change in hospital. avoid hypoglycemia -c/w ISS, BGM ACHS. has been controlled #BPH -c/w flomax #HTN -c/w losartan, toprol #insomnia -c/w ambien #F/E/N avoid IVF, as CHF continue to follow lytes na controlled diet, diabetic #PPX DVT: on plavix, SCD's. early ambulation GI: on pepcid #Dispo tele- obs monitoring anticipate d/c 24-48hrs if cont to improve <Norma Wetzel - Last Filed: 08/03/19 16:43> - Note Progress Note: Seen and examined; independently verified all rodriguez historical information and PE data alongisde all labs, imaging and diagnostics. Agree with above aside from as supplemented by myself. Discussed the case at length with the resident team and indicated consulting serviices. Appreciate the help from all services in the congoing care of this patient. Admits top dietary indescretion but states that they are compliant with meications. They have a history of HFrEF and CAD with multiple PCIs and are s/ p CABG. 10 sys ROS done and negative aisde from HPI VS, labs, imaging reviewed NAD, AAO, resting in bed NC AT EOMI PERRLA HR wnl, +s1/2 Mild b/l crackles, w/ sym exp Trace LE edema, postsurgical changes without acute findings Trachea midline without LN Skin without rashes or breakdown CXR reviewed, CV consult reviewed, prior admissions reviewed. EKG reviewed, ER tele strips reviewed A/P: A on C HFrEF 2/2 diet issues (drinks lots of H20 and eats lots of salt, seems in general unaware of stereotyped recs.) CAD s/p multiple PCI, CABG PAD with occluded L. SFA with planned angiogram, possible PTCA vs open bypass scheduled at [place] early August. He has an open wound that is stable. Consult wound care while inpatient for continued monitoring but this is nonurgent. DONALD s/p b/l CEA Type II NSTEMI present on admission 2/2 CKD with subendocardial ischemia from incrased stress due to fluid overload Hx HTN CKD-IV Uncontrolled DM Discussed with resident team and CV; staying another day or so for IV diuresis Follow QD weights and monitor Is and Os Transition back to PO Materials Coordinator regarding nutritional recommendations. Full Code <Stanley Vazquez - Last Filed: 08/04/19 08:20>
[2019-08-03] MEDS: ATORVASTATIN CA 80 MG TABLET (FP) PO SCH (22:12)
[2019-08-04] MEDS: GABAPENTIN 300 MG CAPSULE (FP) PO SCH ×3 (05:44→21:34)
[2019-08-04] MEDS: INSULIN (LEVEMIR) 100 UNITS/ML UNITS SQ SCH (06:24)
[2019-08-04] MEDS: INSULIN SLIDING SCALE (NOVOLOG) 1 VIAL SQ SCH ×4 (06:24→21:34)
[2019-08-04 07:10] LABS: BLOOD UREA NITROGEN 27.7 mg/dL (7-18); CALCIUM 8.5 mg/dL (8.5-10.1); CREATININE 1.5 mg/dL (0.55-1.3); MAGNESIUM 2.1 mg/dL (1.8-2.4); PHOSPHOROUS 3.6 mg/dL (2.5-4.9); POTASSIUM 4.4 mmol/L (3.5-5.1)
--- NOTE | 2019-08-04 08:57 | PN ---
Progress Note, Physician Chief Complaint: feeling better Less SOB TELE: NSR - Current Medication List Current Medications: Active Medications Acetaminophen (Tylenol -) 650 mg PO Q6H PRN PRN Reason: PAIN LEVEL 6-10 Last Admin: 08/03/19 22:19 Dose: 650 mg Aspirin (Asa -) 81 mg PO DAILY [facility] Last Admin: 08/03/19 10:26 Dose: 81 mg Atorvastatin Calcium (Lipitor -) 80 mg PO HS [facility] Last Admin: 08/03/19 22:12 Dose: 80 mg Clopidogrel Bisulfate (Plavix -) 75 mg PO DAILY [facility] Last Admin: 08/03/19 10:26 Dose: 75 mg Famotidine (Pepcid -) 20 mg PO BID [facility] Last Admin: 08/03/19 22:12 Dose: 20 mg Ferrous Sulfate (Feosol -) 325 mg PO DAILY [facility] Last Admin: 08/03/19 10:27 Dose: 325 mg Folic Acid (Folic Acid -) 1 mg PO DAILY [facility] Last Admin: 08/03/19 10:27 Dose: 1 mg Furosemide (Lasix Injection -) 40 mg IVPUSH DAILY [facility] Last Admin: 08/03/19 10:27 Dose: 40 mg Gabapentin (Neurontin -) 600 mg PO TID [facility] Last Admin: 08/04/19 05:44 Dose: 600 mg Insulin Aspart (Novolog Vial Sliding Scale -) 1 vial SQ ACHS [facility]; Protocol Last Admin: 08/04/19 06:24 Dose: Not Given Insulin Detemir (Levemir Vial) 20 units SQ AM [facility] Last Admin: 08/04/19 06:24 Dose: Not Given Losartan Potassium (Cozaar -) 100 mg PO DAILY [facility] Last Admin: 08/03/19 10:27 Dose: 100 mg Metoprolol Succinate (Toprol Xl -) 25 mg PO DAILY [facility] Last Admin: 08/03/19 10:27 Dose: 25 mg Multivitamins/Minerals/Vitamin C (Tab-A-Vit -) 1 tab PO DAILY [facility] Last Admin: 08/03/19 10:27 Dose: 1 tab Spironolactone (Aldactone -) 25 mg PO DAILY [facility] Last Admin: 08/03/19 10:27 Dose: 25 mg Tamsulosin HCl (Flomax -) 0.4 mg PO DAILY@0830 [facility] Last Admin: 08/03/19 10:27 Dose: 0.4 mg Zolpidem Tartrate (Ambien -) 10 mg PO HS PRN PRN Reason: INSOMNIA - Objective Vital Signs: Vital Signs Temperature 98.1 F 08/04/19 05:37 Pulse Rate 63 08/04/19 05:37 Respiratory Rate 16 08/04/19 05:37 Blood Pressure 144/73 08/04/19 05:37 O2 Sat by Pulse Oximetry (%) 95 08/04/19 08:10 Constitutional: Yes: No Distress, Calm Eyes: Yes: Conjunctiva Clear Cardiovascular: Yes: Regular Rate and Rhythm Respiratory: Yes: Other (residual rales left base.) Gastrointestinal: Yes: Soft Edema: No Neurological: Yes: Alert, Oriented ...Motor Strength: WNL Labs: CBC, BMP 08/02/19 12:15 08/04/19 05:50 Laboratory Tests 08/02/19 08/02/19 08/02/19 12:15 16:00 23:00 Sodium 142 Potassium BUN Creatinine Magnesium Troponin I 0.07 H 0.05 0.07 H 08/03/19 08/04/19 10:30 05:50 Sodium 143 Potassium 4.4 BUN 27.7 H Creatinine 1.5 H Magnesium 2.1 Troponin I 0.05 - ....Imaging EKG: Image Reviewed Assessment/Plan DATA: Nuclear stress (office) within last 2 months: moderate, fixed inferolateral defect c/w prior infarct, no ischemia EF 34% Echo (office) within last 6 months: EF 45-50%, no sig valve disease Carotid US (office) within last 6 months: b/l plaque without sig stenosis. IMP: Acute on chronic systolic CHF likely triggered by dietary indiscretion CAD s/p CABG, multiple prior PCIs PAD with occluded L. SFA with planned angiogram, possible PTCA vs open bypass scheduled at [place] early August Carotid stenosis s/p b/l CEA Chronic HTN CKF DM Recent Herpes Zoster of right chest REC: 1. Continue IV Lasix with daily weights and BMP to monitor renal fx, likely switch PO tomorrow 2. Repeat echo read as "severely reduced", recently done as outpatient with EF 45% range. Will review echo. 3. borderline trop elevation with flat trend likely due to decomp CHF in setting CKD 4. Continue home meds ASA/Atorva 80/Plavix/Toprol XL 25/Aldactone 25 and Losartan 100mg daily
[2019-08-04] MEDS: FUROSEMIDE 40 MG/4 ML INJECTABLE VIAL IVPUSH SCH (09:07)
[2019-08-04] MEDS: FAMOTIDINE 20 MG TABLET PO SCH ×2 (09:07→21:34)
[2019-08-04] MEDS: metoPROLOL SUCCINATE 25 MG TAB.SR.24H (FP) PO SCH (09:07)
[2019-08-04] MEDS: LOSARTAN POTASSIUM 50 MG TABLET (FP) PO SCH (09:07)
[2019-08-04] MEDS: ASPIRIN 81 MG CHEWABLE TABLETS PO SCH (09:07)
[2019-08-04] MEDS: FOLIC ACID 1 MG TABLET (FP) PO SCH (09:07)
[2019-08-04] MEDS: FERROUS SO4 325 MG TABLET (FP) PO SCH (09:07)
[2019-08-04] MEDS: MULTIVITAMINS (DAILY MVI) TABLET (FP) PO SCH (09:07)
[2019-08-04] MEDS: CLOPIDOGREL BISULFATE 75 MG TABLET (FP) PO SCH (09:07)
[2019-08-04] MEDS: SPIRONOLACTONE 25 MG TABLET (FP) PO SCH (09:07)
[2019-08-04] MEDS: TAMSULOSIN HCL 0.4 MG CAP PO SCH (09:07)
--- NOTE | 2019-08-04 09:32 | PN ---
Progress Note (short form) - Note Progress Note: Hospitalist Medicine Resting comfortably. Breathing improved. Vitals 08/04/19 05:37 Temperature 98.1 F Pulse Rate 63 Respiratory 16 Rate Blood Pressure 144/73 Physical Exam General: resting comfortably, in NAD HEENT: NCAT, PERRLA neck: supple. no JVD noticed cardio: S1, S2 RRR. no r/m/g pulm: +bibasilar rales - improved. no accessory m usage abdomen: nontender, no guarding or rigidity LE: 2+ pulses. +vertical scars along R lateral cook from past LE sx. +LLE with 2x2cm ulcer w/o d/c neuro: Gumming Machine Operator 2-12 grossly intact psych: appropriate affect Laboratory Tests 08/04/19 05:50 Sodium 143 Potassium 4.4 Chloride 111 H Carbon Dioxide 28 BUN 27.7 H Creatinine 1.5 H Random Glucose 124 H Calcium 8.5 Phosphorus 3.6 Magnesium 2.1 EKG: +chronic lateral depressions - similar to previous ekg, w/LVH, qtc 461ms. CXR:new congestive changes with prominent mediastinum and sternal sutures with clips. art duplex LE: occluded R common and superficial femoral aa., as well as poplliteal a., occluded R superficial femoral and distal popliteal aa. (not new findings) abdom sono: R pleural effusion, trace ascites, hepatosplenomegaly, no evidence of acute pathology in abdomen ECHO: LVSF severely reduced, severe global hypokinesis, mod MR Per cardio note: Echo: Other (Recent office echo: 45-50% EF) Nuclear stress (office) within last 2 months: moderate, fixed inferolateral defect c/w prior infarct, no ischemia EF 34% Echo (office) within last 6 months: EF 45-50%, no sig valve disease Carotid US (office) within last 6 months: b/l plaques without sig stenosis. ASSESSMENT/PLAN: 64 y/o M with hx CAD s/p multiple PCI, CABG, CKD, HTN, carotid stenosis s/p CEA , PAD, DM, chronic systolic CHF with mildly reduced LVEF presents to ER with one night of orthopnea , SOB and associated chest tightness. #Acute on chronic systolic CHF 2/2 increased salt -c/w lasix 40mg IVP qd. likely change to PO tomorrow -daily wts, i/o, na control 2g -repeat ECHO: severely reduced LVSF -f/u BMP to check lytes -c/w aldactone -cardio on board: Dr. Saleem #hx multiple PCI, CABG -c/w asa #HLD -c/w statin #LLE ulceration -ESR (44); however nonspecific, may reflect any inflammation -f/u CRP 0.4 #hx known PAD -c/w neurontin -on plavix -planned for bypass after d/c #IDDM -a1c 8.2% -c/w levemir 20u sqAM for now. was on 40-50 at home however may have dietary change in hospital. avoid hypoglycemia -c/w ISS, BGM ACHS. has been controlled #BPH -c/w flomax #HTN -c/w losartan, toprol #insomnia -c/w ambien #F/E/N avoid IVF, as CHF continue to follow lytes na controlled diet, diabetic #PPX DVT: on plavix, SCD's. early ambulation GI: on pepcid #Dispo tele monitoring anticipate d/c 24 hrs; per cardio, likely switch to PO lasix tomorrow <Norma Wetzel - Last Filed: 08/04/19 09:27> - Note Progress Note: Seen and examined; please see resident note for further historical information. I personally verified all rodriguez historical information and exam findings. Personally interpreted all imaging and diagnostics and reviewed appropriate consults. I reviewed all labs and vital signs as per resident note and EMR as documented. I agree with the above assessment and plan unless supplemented by myself in the following. No new complaints overnight, shortness of breath is improved. Per cardiology we will complete IV diuretics today transition to p.o. and plan on discharge in the morning. We will have PT see him. He will follow-up with his bypass, and we will discuss with the proceduralist that he intends to see as an outpatient. VS, labs, imaging reviewed NAD, AAO, resting comfortably in bed. RRR s1/2 no mgr Normal muscle tone, moves all 5 extremities with normal apparent strength Neck is supple, trachea midline, no donnie LN Lungs CTAB with sym expansion NT ND +BS no donnie organomegaly CN2-12 wnl; no FND NC AT EOMI PERRLA Normal mood, appropriate behavior, euthymic affect No skin breakdown or rashes noted A/P: A on C HFrEF 2/2 diet issues (drinks lots of H20 and eats lots of salt, seems in general unaware of stereotyped recs.) CAD s/p multiple PCI, CABG PAD with occluded L. SFA with planned angiogram, possible PTCA vs open bypass scheduled at [place] early August. He has an open wound that is stable. Consult wound care while inpatient for continued monitoring but this is nonurgent. DONALD s/p b/l CEA Type II NSTEMI present on admission 2/2 CKD with subendocardial ischemia from incrased stress due to fluid overload Hx HTN CKD-IV Uncontrolled DM He continues to diurese well on the IV diuretics, I's and O's monitored, likely not accurate, continue to monitor weights. Symptomatically improved. Convert to p.o. in the morning and likely discharge. He will have the L. SFA with planned angiogram, possible PTCA vs open bypass scheduled at [place] early August <Stanley Vazquez - Last Filed: 08/04/19 12:33>
[2019-08-04] MEDS ORDERED: INSULIN SLIDING SCALE (NOVOLOG) 1 VIAL SQ ONE (11:40)
[2019-08-04] MEDS: ATORVASTATIN CA 80 MG TABLET (FP) PO SCH (21:34)
[2019-08-04] MEDS: ACETAMINOPHEN 325 MG TABLET (FP) PO PRN (21:35)
[2019-08-05] MEDS: INSULIN (LEVEMIR) 100 UNITS/ML UNITS SQ SCH (06:26)
[2019-08-05] MEDS: INSULIN SLIDING SCALE (NOVOLOG) 1 VIAL SQ SCH ×2 (06:29→11:49)
[2019-08-05 06:59] VITALS: TEMP 98.2
[2019-08-05 07:35] LABS: HEMATOCRIT 29.8 % (35.4-49); HEMOGLOBIN 10.1 GM/dL (11.7-16.9); MCH 28.5 pg (25.7-33.7); MCHC 33.9 g/dl (32.0-35.9); MEAN PLT VOLUME 9.7 fl (7.5-11.1); PLATELET COUNT 163 K/MM3 (134-434); RBC 3.55 M/mm3 (4.00-5.60); RDW 15.5 % (11.9-15.9); WHITE BLOOD COUNT 5.3 K/mm3 (4.0-10.0)
[2019-08-05 07:52] LABS: BLOOD UREA NITROGEN 25.3 mg/dL (7-18); CALCIUM 8.3 mg/dL (8.5-10.1); CREATININE 1.6 mg/dL (0.55-1.3); MAGNESIUM 2.1 mg/dL (1.8-2.4); PHOSPHOROUS 3.6 mg/dL (2.5-4.9); POTASSIUM 4.2 mmol/L (3.5-5.1)
[2019-08-05] MEDS: ASPIRIN 81 MG CHEWABLE TABLETS PO SCH (09:00)
[2019-08-05] MEDS: CLOPIDOGREL BISULFATE 75 MG TABLET (FP) PO SCH (09:00)
[2019-08-05] MEDS: MULTIVITAMINS (DAILY MVI) TABLET (FP) PO SCH (09:00)
[2019-08-05] MEDS: metoPROLOL SUCCINATE 25 MG TAB.SR.24H (FP) PO SCH (09:00)
[2019-08-05] MEDS: GABAPENTIN 300 MG CAPSULE (FP) PO SCH (09:00)
[2019-08-05] MEDS: TAMSULOSIN HCL 0.4 MG CAP PO SCH (09:00)
[2019-08-05] MEDS: FOLIC ACID 1 MG TABLET (FP) PO SCH (09:00)
[2019-08-05] MEDS: FERROUS SO4 325 MG TABLET (FP) PO SCH (09:00)
[2019-08-05] MEDS: FAMOTIDINE 20 MG TABLET PO SCH (09:00)
[2019-08-05] MEDS: SPIRONOLACTONE 25 MG TABLET (FP) PO SCH (09:00)
[2019-08-05] MEDS: LOSARTAN POTASSIUM 50 MG TABLET (FP) PO SCH (09:01)
--- NOTE | 2019-08-05 09:46 | PN ---
Progress Note, Physician Chief Complaint: feeling better No CP, SOB, palps - Current Medication List Current Medications: Active Medications Acetaminophen (Tylenol -) 650 mg PO Q6H PRN PRN Reason: PAIN LEVEL 6-10 Last Admin: 08/04/19 21:35 Dose: 650 mg Aspirin (Asa -) 81 mg PO DAILY [facility] Last Admin: 08/05/19 09:00 Dose: 81 mg Atorvastatin Calcium (Lipitor -) 80 mg PO HS [facility] Last Admin: 08/04/19 21:34 Dose: 80 mg Clopidogrel Bisulfate (Plavix -) 75 mg PO DAILY [facility] Last Admin: 08/05/19 09:00 Dose: 75 mg Famotidine (Pepcid -) 20 mg PO BID [facility] Last Admin: 08/05/19 09:00 Dose: 20 mg Ferrous Sulfate (Feosol -) 325 mg PO DAILY [facility] Last Admin: 08/05/19 09:00 Dose: 325 mg Folic Acid (Folic Acid -) 1 mg PO DAILY [facility] Last Admin: 08/05/19 09:00 Dose: 1 mg Furosemide (Lasix Injection -) 40 mg IVPUSH DAILY [facility] Last Admin: 08/04/19 09:07 Dose: 40 mg Gabapentin (Neurontin -) 600 mg PO TID [facility] Last Admin: 08/05/19 09:00 Dose: 600 mg Insulin Aspart (Novolog Vial Sliding Scale -) 1 vial SQ ACHS [facility]; Protocol Last Admin: 08/05/19 06:29 Dose: 2 unit Insulin Detemir (Levemir Vial) 20 units SQ AM [facility] Last Admin: 08/05/19 06:26 Dose: Not Given Losartan Potassium (Cozaar -) 100 mg PO DAILY [facility] Last Admin: 08/05/19 09:01 Dose: 100 mg Metoprolol Succinate (Toprol Xl -) 25 mg PO DAILY [facility] Last Admin: 08/05/19 09:00 Dose: 25 mg Multivitamins/Minerals/Vitamin C (Tab-A-Vit -) 1 tab PO DAILY [facility] Last Admin: 08/05/19 09:00 Dose: 1 tab Spironolactone (Aldactone -) 25 mg PO DAILY [facility] Last Admin: 08/05/19 09:00 Dose: 25 mg Tamsulosin HCl (Flomax -) 0.4 mg PO DAILY@0830 [facility] Last Admin: 08/05/19 09:00 Dose: 0.4 mg Zolpidem Tartrate (Ambien -) 10 mg PO HS PRN PRN Reason: INSOMNIA - Objective Vital Signs: Vital Signs Temperature 98.2 F 08/05/19 06:00 Pulse Rate 66 08/05/19 06:00 Respiratory Rate 20 08/05/19 06:00 Blood Pressure 132/79 08/05/19 06:00 O2 Sat by Pulse Oximetry (%) 97 08/04/19 21:00 Constitutional: Yes: No Distress, Calm Cardiovascular: Yes: Regular Rate and Rhythm Respiratory: Yes: CTA Bilaterally Gastrointestinal: Yes: Soft Edema: No Neurological: Yes: Alert ...Motor Strength: WNL Labs: CBC, BMP 08/05/19 06:40 08/05/19 06:40 - ....Imaging EKG: Image Reviewed Assessment/Plan DATA: Nuclear stress (office) within last 2 months: moderate, fixed inferolateral defect c/w prior infarct, no ischemia EF 34% Echo (office) within last 6 months: EF 45-50%, no sig valve disease Carotid US (office) within last 6 months: b/l plaque without sig stenosis. IMP: Acute on chronic systolic CHF likely triggered by dietary indiscretion CAD s/p CABG, multiple prior PCIs PAD with occluded L. SFA with planned angiogram, possible PTCA vs open bypass scheduled at [place] early August Carotid stenosis s/p b/l CEA Chronic HTN CKF DM Recent Herpes Zoster of right chest REC: 1. Switch PO Lasix today. D/C tele, Discharge planning. 2. Repeat echo read as "severely reduced", recently done as outpatient with EF 45% range. Will review echo and can f/u as outpatient. 3. borderline trop elevation with flat trend and negative CK likely due to decomp CHF in setting CKD; do not suspect ACS event. 4. Continue home meds ASA/Atorva 80/Plavix/Toprol XL 25/Aldactone 25 and Losartan 100mg daily
[2019-08-05] MEDS ORDERED: FUROSEMIDE 40 MG TABLET (FP) PO SCH ×2 (11:30→14:00)
[2019-08-05 12:48] VITALS: BP 148/79; PULSE 76
--- NOTE | 2019-08-05 18:00 | DS ---
Physical Exam: SUBJECTIVE: Patient seen and examined at bedside. Feeling well. Improved breathing OBJECTIVE: Vital Signs Period Temp Pulse Resp BP Sys/[place] Pulse Ox Last 24 Hr 97.6 F-98.3 F 66-76 18-20 116-150/65-79 97-97 Physical Exam General: resting comfortably, in NAD HEENT: NCAT, PERRLA neck: supple. no JVD noticed cardio: S1, S2 RRR. no r/m/g pulm: +bibasilar rales - improved. no accessory m usage abdomen: nontender, no guarding or rigidity LE: 2+ pulses. +vertical scars along R lateral cook from past LE sx. +LLE with 2x2cm ulcer w/o d/c neuro: Teaching Assistant 2-12 grossly intact psych: appropriate affect LABS Laboratory Results - last 24 hr 08/04/19 08/05/19 08/05/19 21:32 05:48 06:40 WBC 5.3 RBC 3.55 L Hgb 10.1 L Hct 29.8 L MCV 84.0 MCH 28.5 MCHC 33.9 RDW 15.5 Plt Count 163 MPV 9.7 PTT (Actin FS) Sodium Potassium Chloride Carbon Dioxide Anion Gap BUN Creatinine Est GFR (CKD-EPI)AfAm Est GFR (CKD-EPI)NonAf POC Glucometer 229 183 Random Glucose Calcium Phosphorus Magnesium 08/05/19 08/05/19 06:40 06:40 WBC RBC Hgb Hct MCV MCH MCHC RDW Plt Count MPV PTT (Actin FS) 33.8 Sodium 141 Potassium 4.2 Chloride 110 H Carbon Dioxide 25 Anion Gap 7 L BUN 25.3 H Creatinine 1.6 H Est GFR (CKD-EPI)AfAm 51.99 Est GFR (CKD-EPI)NonAf 44.86 POC Glucometer Random Glucose 156 H Calcium 8.3 L Phosphorus 3.6 Magnesium 2.1 08/02/19 08/03/19 08/05/19 12:15 10:30 06:40 WBC 4.0 5.3 RBC 3.41 L 3.55 L Hgb 10.1 L Hct 28.7 L 29.8 L Plt Count 137 D 163 ESR 44 H 08/04/19 08/05/19 05:50 06:40 Sodium 143 141 Potassium 4.4 4.2 Chloride 111 H 110 H Carbon Dioxide 28 25 BUN 27.7 H 25.3 H Creatinine 1.5 H 1.6 H Random Glucose 124 H 156 H Calcium 8.5 8.3 L Phosphorus 3.6 3.6 Magnesium 2.1 2.1 EKG: +chronic lateral depressions - similar to previous ekg, w/LVH, qtc 461ms. CXR:new congestive changes with prominent mediastinum and sternal sutures with clips. art duplex LE: occluded R common and superficial femoral aa., as well as poplliteal a., occluded R superficial femoral and distal popliteal aa. (not new findings) abdom sono: R pleural effusion, trace ascites, hepatosplenomegaly, no evidence of acute pathology in abdomen ECHO: LVSF severely reduced, severe global hypokinesis, mod MR Per cardio note: Echo: Other (Recent office echo: 45-50% EF) Nuclear stress (office) within last 2 months: moderate, fixed inferolateral defect c/w prior infarct, no ischemia EF 34% Echo (office) within last 6 months: EF 45-50%, no sig valve disease Carotid US (office) within last 6 months: b/l plaques without sig stenosis. HOSPITAL COURSE: Date of Admission:08/02/19 Date of Discharge: 08/05/19 Admit diagnosis: CHF exacerbation 64 y/o M with hx CAD s/p multiple PCI, CABG, CKD, HTN, carotid stenosis s/p CEA , PAD, DM, chronic systolic CHF with mildly reduced LVEF presents to ER with one night of orthopnea , SOB and associated chest tightness. #Acute on chronic systolic CHF 2/2 increased salt -was continued on lasix 40mg IVP qd during stay. discharged on home lasix dose -daily wts, i/o, na control 2g -repeat ECHO: severely reduced LVSF -c/w aldactone -seen by home cardio, Dr. Saleem #hx multiple PCI, CABG -c/w asa #HLD -c/w statin #LLE ulceration -ESR (44); however nonspecific, may reflect any inflammation -f/u CRP 0.4 #hx known PAD -c/w neurontin -on plavix -planned for bypass after d/c #IDDM -a1c 8.2% -levemir 40-50 sq HS at home however may have dietary change in hospital. avoid hypoglycemia in hospital was monitored -c/w ISS, BGM ACHS. has been controlled #BPH -c/w flomax #HTN -c/w losartan, toprol Minutes to complete discharge: 45 Discharge Summary Problems reviewed: Yes Reason For Visit: CHF Condition: Fair - Instructions Diet, Activity, Other Instructions: You were in the hospital because you had an exacerbation of your CHF ( congestive heart failure). This means that you had more fluid on your body and heart. You were treated with an IV water pill. You had a repeat ECHO (picture taken of your heart) which showed that one of heart chambers (left ventricle) had reduced function. You will follow with a tip printer for these matters. Your breathing improved and you are being sent home. Medications 1. Continue to take lasix (the water pill) 40 mg - 1 pill, every day (your home medication) 2. You have been started on a new medication called Spirinolactone. Take 25mg daily (1 pill a day). 3. Your metoprolol dose was changed in the hospital to 25mg from 50mg . Continue 25mg daily. 3. You may continue your other home medications Care 1. It is very important that you weigh yourself daily. If you notice that you are gaining weight, you may need to have the dose of your water pill adjusted. You will need to follow with your tip printer to discuss this. 2. Also, it is important to avoid foods that are in high in salt. Follow up Please follow up with the following doctors upon your discharge -Your primary care doctor - within the next 3-5 days -Your tip printer, Dr. Saleem - this week to discuss your visit. -Your vascular doctor from [place]- this week - since you have a vascular procedure for your leg planned this month, as we discussed. If you have any issues contacting your doctor, you can speak to Dr. Rod, who performed your other procedure. Referrals: Jm Saleem MD [Staff Physician] - 1 Week ON STAFF,NOT [Primary Care Provider] - 1 Week Mesfin Rod DO [Staff Physician] - 1 Week Disposition: HOME - Home Medications Comprehensive Discharge Medication List: Ambulatory Orders Aspirin [ASA -] 81 mg PO DAILY #60 tab.chew 06/12/14 Clopidogrel Bisulfate [Plavix -] 75 mg PO DAILY #30 tablet 06/12/14 Ranitidine [Zantac -] 150 mg PO BID 04/22/18 Furosemide [Lasix -] 40 mg PO DAILY #30 tablet 04/24/18 Gabapentin 600 mg PO TID 07/26/18 Atorvastatin Ca [Lipitor] 80 mg PO HS #30 tablet 07/27/18 Ferrous Sulfate 325 mg PO DAILY 04/15/19 Folic Acid 1 mg PO DAILY 04/15/19 Insulin Glargine,Hum.rec.anlog [Basaglar Kwikpen U-100] 50 units SQ DAILY Multivitamins [Multivit ([facility] Formul[facility])] 1 tab PO DAILY 04/15/19 Zolpidem Tartrate [Ambien] 10 mg PO HS 04/15/19 Tamsulosin HCl [Flomax -] 0.4 mg PO DAILY 06/08/19 Amlodipine Besylate 5 mg PO DAILY 06/10/19 Losartan Potassium 100 mg PO DAILY 06/10/19 Metformin HCl [Glucophage] 1,000 mg PO BID 06/10/19 Meloxicam [Mobic] 7.5 mg PO DAILY #30 tablet 06/24/19 Glipizide 1 tab PO ASDIR 08/02/19 traZODone HCL [Trazodone HCl] 50 mg PO HS 08/02/19 Acetaminophen [Tylenol .Regular Strength -] 650 mg PO Q6H PRN tablet 08/04/19 Metoprolol Succinate [Toprol XL -] 25 mg PO DAILY tab.sr.24h 08/04/19 Spironolactone [Aldactone -] 25 mg PO DAILY #30 tablet 08/04/19 Metoprolol Succinate 25 mg PO DAILY #30 tab.er.24h 08/05/19 This patient is new to me today: No Emergency Visit: No Critical Care patient: No - Discharge Referral Referred to [facility] No ATTENDING PHYSICIAN STATEMENT I saw and evaluated the patient. I reviewed the resident's note and discussed the case with the resident. I agree with the resident's findings and plan as documented. SUBJECTIVE: OBJECTIVE: ASSESSMENT AND PLAN:
== END 2019-08-05 12:56 | disposition home or self-care (01) | DRG 194 ==
LOC: JER 10:07 → JERBED 14:06 → OBSVTOIN 14:06 → J4S 08-03 01:05
PROVIDERS: ADMIT Internal Medicine; ATTEND Internal Medicine
DX: I13.0 Hypertensive heart and chronic kidney disease with heart failure and stage 1 through stage 4 chronic kidney disease, or unspecified chronic kidney disease (principal); I50.23 Acute on chronic systolic (congestive) heart failure; E11.22 Type 2 diabetes mellitus with diabetic chronic kidney disease; L97.829 Non-pressure chronic ulcer of other part of left lower leg with unspecified severity; N18.4 Chronic kidney disease, stage 4 (severe); E11.51 Type 2 diabetes mellitus with diabetic peripheral angiopathy without gangrene; E11.65 Type 2 diabetes mellitus with hyperglycemia; Z87.891 Personal history of nicotine dependence; Z79.4 Long term (current) use of insulin; Z95.1 Presence of aortocoronary bypass graft; Z98.61 Coronary angioplasty status; N40.0 Benign prostatic hyperplasia without lower urinary tract symptoms; G47.00 Insomnia, unspecified; E78.5 Hyperlipidemia, unspecified
CPT/HCPCS: 36415; 71045-TC-FY; 76700-TC; 80048; 80053; 82550; 82962; 83036; 83735; 83880; 84100; 84484; 85025; 85027; 85651; 85730; 86140; 87804; 93005; 93010; 93306-TC; 93925-TC; 97116-GP; 97161-GP; 99284-25; J1644

== ENCOUNTER 2022-04-18 17:46 | Inpatient (IN) | payer OTHER ==
[2022-04-18] MEDS ORDERED: ACETAMINOPHEN 1000 MG/100 ML BAG IVPB ONE (18:14)
[2022-04-18] MEDS ORDERED: LACTATED RINGERS SOLUTION 1000 ML INFUS.BAG IV ONE (18:14)
[2022-04-18] MEDS ORDERED: ONDANSETRON 4 MG/2 ML VIAL IVPUSH ONE (18:14)
[2022-04-18] MEDS ORDERED: ONDANSETRON 4 MG/2 ML VIAL ONE (18:48)
[2022-04-18] MEDS ORDERED: ACETAMINOPHEN INJECTION 100 ML IVPB ONE (18:48)
[2022-04-18 18:54] LABS: VENOUS BASE EXCESS 0.6 mmol/L (-2-2); VENOUS O2 SATURATION 25.1 % (70-80); VENOUS PCO2 40.7 mmHg (38-52); VENOUS PH 7.411 (7.310-7.410)
[2022-04-18 19:01] LABS: BASO % 0.2 % (0-2.0); EOS % 0.1 % (0-4.5); HEMATOCRIT 45.4 % (35.4-49); HEMOGLOBIN 14.9 GM/dL (11.7-16.9); LYMPH % 3.4 % (8-40); MCH 28.2 pg (25.7-33.7); MCHC 32.8 g/dl (32.0-35.9); MEAN PLT VOLUME 8.6 fl (7.5-11.1); MONO % 4.5 % (3.8-10.2); NEUT % 91.8 % (42.8-82.8); PLATELET COUNT 181 10^3/uL (134-434); RBC 5.28 M/mm3 (4.00-5.60); RDW 20.2 % (11.9-15.9); WHITE BLOOD COUNT 16.3 K/mm3 (4.0-10.0)
[2022-04-18 19:21] LABS: CALCIUM 8.2 mg/dL (8.5-10.1)
[2022-04-18 19:22] LABS: ALBUMIN 2.6 g/dl (3.4-5.0); BLOOD UREA NITROGEN 24.6 mg/dL (7-18)
[2022-04-18 19:25] LABS: CREATININE 3.9 mg/dL (0.55-1.3)
[2022-04-18 19:26] LABS: BILIRUBIN,TOTAL 0.7 mg/dL (0.2-1); TOT PROT 6.6 g/dl (6.4-8.2)
[2022-04-18] MEDS ORDERED: POTASSIUM CHLORIDE TABS 20 MEQ TABLET.ER (FP) PO ONE (19:31)
[2022-04-18 19:56] LABS: INR 1.28 (0.83-1.09); PROTHROMBIN TIME (PATIENT) 14.7 SEC (9.7-13.0)
[2022-04-18 19:59] LABS: ACTIVATED PTT 29.4 SECONDS (25.2-36.5)
[2022-04-18 20:30] LABS: ANISOCYTOSIS 2+; MACROCYTOSIS 0; OVALOCYTE 1+; TEAR DROP CELLS 1+
[2022-04-19] MEDS: PIPERACILLIN/TAZOB 3.375 GM 3.375 GM in DEXTROSE 5%-WATER - 50 ML IVPB ONE ×2 (01:09→01:20)
[2022-04-19] MEDS ORDERED: PIPERACILLIN/TAZOB 3.375 GM 3.375 GM/50 ML BAG IVPB ONE (01:11)
[2022-04-19 01:23] LABS: MAGNESIUM 1.7 mg/dL (1.8-2.4)
[2022-04-19] MEDS ORDERED: ACETAMINOPHEN 325 MG TABLET (FP) PO PRN (01:33)
[2022-04-19 01:57] LABS: CALCIUM 7.9 mg/dL (8.5-10.1)
[2022-04-19 01:58] LABS: BLOOD UREA NITROGEN 24.5 mg/dL (7-18); MAGNESIUM 1.7 mg/dL (1.8-2.4)
[2022-04-19 02:01] LABS: CREATININE 4.1 mg/dL (0.55-1.3); PHOSPHOROUS 3.7 mg/dL (2.5-4.9)
[2022-04-19] MEDS ORDERED: ACETAMINOPHEN 1000 MG/100 ML BAG IVPB PRN (02:17)
[2022-04-19] MEDS: VANCOMYCIN 250 MG/5 ML ORAL SOLUTION PO SCH ×4 (03:51→17:50)
[2022-04-19] MEDS ORDERED: HEPARIN NA (PORCINE) 5,000 UNITS/ML 1ML VIAL SQ SCH (06:00)
[2022-04-19 08:53] LABS: BASO % 0.1 % (0-2.0); EOS % 0.2 % (0-4.5); HEMATOCRIT 41.9 % (35.4-49); HEMOGLOBIN 13.5 GM/dL (11.7-16.9); LYMPH % 4.2 % (8-40); MCH 27.6 pg (25.7-33.7); MCHC 32.1 g/dl (32.0-35.9); MEAN CELL VOLUME 85.9 fl (80-96); MEAN PLT VOLUME 9.6 fl (7.5-11.1); MONO % 6.8 % (3.8-10.2); NEUT % 88.7 % (42.8-82.8); PLATELET COUNT 177 10^3/uL (134-434); RBC 4.88 M/mm3 (4.00-5.60); RDW 19.7 % (11.9-15.9)
[2022-04-19 09:00] LABS: CALCIUM 7.9 mg/dL (8.5-10.1)
[2022-04-19 09:01] LABS: ALBUMIN 2.3 g/dl (3.4-5.0); BLOOD UREA NITROGEN 26.5 mg/dL (7-18); MAGNESIUM 1.7 mg/dL (1.8-2.4)
[2022-04-19 09:04] LABS: CREATININE 4.4 mg/dL (0.55-1.3); PHOSPHOROUS 4.1 mg/dL (2.5-4.9)
[2022-04-19 09:05] LABS: TOT PROT 5.6 g/dl (6.4-8.2)
[2022-04-19 09:06] LABS: BILIRUBIN,TOTAL 0.7 mg/dL (0.2-1)
[2022-04-19 10:57] LABS: ANISOCYTOSIS 2+; MACROCYTOSIS 0
[2022-04-19] MEDS: TAMSULOSIN HCL 0.4 MG CAP PO SCH (11:07)
[2022-04-19] MEDS: CLOPIDOGREL BISULFATE 75 MG TABLET (FP) PO SCH (11:08)
[2022-04-19] MEDS: ASPIRIN 81 MG CHEWABLE TABLETS PO SCH (11:09)
[2022-04-19] MEDS: FOLIC ACID 1 MG TABLET (FP) PO SCH (11:09)
[2022-04-19] MEDS: MAGNESIUM OXIDE 400 MG TABLET (FP) PO SCH ×2 (13:24→22:17)
[2022-04-19] MEDS: POTASSIUM CHLORIDE TABS 20 MEQ TABLET.ER (FP) PO SCH ×2 (13:25→22:18)
[2022-04-19] MEDS ORDERED: traZODone HCL 50 MG TABLET (FP) PO PRN (18:12)
[2022-04-19] MEDS: FAMOTIDINE 20 MG TABLET PO SCH (22:17)
[2022-04-19] MEDS: traZODone HCL 50 MG TABLET (FP) PO SCH (22:17)
[2022-04-19] MEDS: MIRTAZAPINE 15 MG TABLET (FP) PO SCH (22:17)
[2022-04-19] MEDS: ATORVASTATIN CA 80 MG TABLET (FP) PO SCH (22:17)
[2022-04-20] MEDS: VANCOMYCIN 250 MG/5 ML ORAL SOLUTION PO SCH ×5 (00:02→23:00)
[2022-04-20] MEDS: TAMSULOSIN HCL 0.4 MG CAP PO SCH (08:56)
[2022-04-20 09:11] LABS: HEMATOCRIT 44.3 % (35.4-49); HEMOGLOBIN 14.4 GM/dL (11.7-16.9); MCH 28.4 pg (25.7-33.7); MCHC 32.4 g/dl (32.0-35.9); MEAN CELL VOLUME 87.8 fl (80-96); PLATELET COUNT 154 10^3/uL (134-434); RBC 5.05 M/mm3 (4.00-5.60); RDW 20.8 % (11.9-15.9); WHITE BLOOD COUNT 19.6 K/mm3 (4.0-10.0)
[2022-04-20] MEDS: POTASSIUM CHLORIDE TABS 20 MEQ TABLET.ER (FP) PO SCH (10:30)
[2022-04-20] MEDS: MULTIVITAMINS (DAILY MVI) TABLET (FP) PO SCH (10:31)
[2022-04-20] MEDS: FOLIC ACID 1 MG TABLET (FP) PO SCH (10:31)
[2022-04-20] MEDS: CLOPIDOGREL BISULFATE 75 MG TABLET (FP) PO SCH (10:31)
[2022-04-20] MEDS: LACTOBACILLUS ACIDOPHILUS 1 TABLET PO SCH (10:31)
[2022-04-20] MEDS: ASPIRIN 81 MG CHEWABLE TABLETS PO SCH (10:31)
[2022-04-20 10:34] LABS: ANISOCYTOSIS 1+; MACROCYTOSIS 0; PLATELET ESTIMATE NORMAL
[2022-04-20 12:00] LABS: ALBUMIN 2.3 g/dl (3.4-5.0); BILIRUBIN,TOTAL 0.5 mg/dL (0.2-1); BLOOD UREA NITROGEN 35.3 mg/dL (7-18); CALCIUM 7.8 mg/dL (8.5-10.1); CREATININE 5.3 mg/dL (0.55-1.3); MAGNESIUM 1.9 mg/dL (1.8-2.4); TOT PROT 5.6 g/dl (6.4-8.2)
[2022-04-20] MEDS ORDERED: SODIUM CHLORIDE 250 ML IV PRN (12:30)
[2022-04-20] MEDS: traZODone HCL 50 MG TABLET (FP) PO SCH (23:00)
[2022-04-20] MEDS: ATORVASTATIN CA 80 MG TABLET (FP) PO SCH (23:00)
[2022-04-20] MEDS: FAMOTIDINE 20 MG TABLET PO SCH (23:00)
[2022-04-20] MEDS: MIRTAZAPINE 15 MG TABLET (FP) PO SCH (23:00)
[2022-04-21] MEDS: VANCOMYCIN 250 MG/5 ML ORAL SOLUTION PO SCH ×3 (06:23→18:46)
[2022-04-21 08:10] LABS: HEMATOCRIT 45.2 % (35.4-49); HEMOGLOBIN 14.4 GM/dL (11.7-16.9); MCH 27.9 pg (25.7-33.7); MCHC 31.9 g/dl (32.0-35.9); MEAN CELL VOLUME 87.4 fl (80-96); MEAN PLT VOLUME 9.2 fl (7.5-11.1); PLATELET COUNT 152 10^3/uL (134-434); RBC 5.16 M/mm3 (4.00-5.60); RDW 20.5 % (11.9-15.9); WHITE BLOOD COUNT 13.1 K/mm3 (4.0-10.0)
[2022-04-21 08:22] LABS: ALBUMIN 2.3 g/dl (3.4-5.0); CALCIUM 7.9 mg/dL (8.5-10.1)
[2022-04-21 08:23] LABS: MAGNESIUM 2.2 mg/dL (1.8-2.4)
[2022-04-21 08:26] LABS: CREATININE 6.1 mg/dL (0.55-1.3)
[2022-04-21 08:27] LABS: BILIRUBIN,TOTAL 0.9 mg/dL (0.2-1); TOT PROT 5.6 g/dl (6.4-8.2)
[2022-04-21 08:32] LABS: PHOSPHOROUS 4.4 mg/dL (2.5-4.9)
[2022-04-21 09:58] LABS: ANISOCYTOSIS 0; MACROCYTOSIS 0
[2022-04-21] MEDS: TAMSULOSIN HCL 0.4 MG CAP PO SCH (11:14)
[2022-04-21] MEDS: ASPIRIN 81 MG CHEWABLE TABLETS PO SCH (11:14)
[2022-04-21] MEDS: LACTOBACILLUS ACIDOPHILUS 1 TABLET PO SCH (11:14)
[2022-04-21] MEDS: MULTIVITAMINS (DAILY MVI) TABLET (FP) PO SCH (11:14)
[2022-04-21] MEDS: CLOPIDOGREL BISULFATE 75 MG TABLET (FP) PO SCH (11:14)
[2022-04-21] MEDS: FOLIC ACID 1 MG TABLET (FP) PO SCH (11:15)
[2022-04-21] MEDS: AMINO ACIDS/PROTEIN HYDROLYS 30 ML LIQUID.PKT GT SCH (11:15)
[2022-04-21] MEDS ORDERED: ALTEPLASE (CATHFLO) 2 MG/2 ML VIAL NR ONE ×2 (18:00)
[2022-04-21] MEDS: traZODone HCL 50 MG TABLET (FP) PO SCH (21:38)
[2022-04-21] MEDS: MIRTAZAPINE 15 MG TABLET (FP) PO SCH (21:38)
[2022-04-21] MEDS: ATORVASTATIN CA 80 MG TABLET (FP) PO SCH (21:38)
[2022-04-21] MEDS: FAMOTIDINE 20 MG TABLET PO SCH (21:38)
[2022-04-22] MEDS: VANCOMYCIN 250 MG/5 ML ORAL SOLUTION PO SCH ×4 (00:05→17:12)
[2022-04-22 07:49] LABS: HEMATOCRIT 44.8 % (35.4-49); HEMOGLOBIN 14.2 GM/dL (11.7-16.9); MCH 27.6 pg (25.7-33.7); MCHC 31.8 g/dl (32.0-35.9); MEAN CELL VOLUME 86.7 fl (80-96); MEAN PLT VOLUME 8.8 fl (7.5-11.1); PLATELET COUNT 167 10^3/uL (134-434); RBC 5.16 M/mm3 (4.00-5.60); RDW 20.4 % (11.9-15.9); WHITE BLOOD COUNT 14.6 K/mm3 (4.0-10.0)
[2022-04-22 08:17] LABS: CALCIUM 7.5 mg/dL (8.5-10.1)
[2022-04-22 08:18] LABS: ALBUMIN 2.3 g/dl (3.4-5.0); BLOOD UREA NITROGEN 26.5 mg/dL (7-18); CREATININE 4.6 mg/dL (0.55-1.3); MAGNESIUM 1.9 mg/dL (1.8-2.4)
[2022-04-22 08:19] LABS: BILIRUBIN,TOTAL 0.6 mg/dL (0.2-1)
[2022-04-22 08:20] LABS: TOT PROT 5.7 g/dl (6.4-8.2)
[2022-04-22 09:29] LABS: ANISOCYTOSIS 0; HELMET CELLS 0; HOWELL-JOLLY BODIES 0; MACROCYTOSIS 0; OVALOCYTE 0; ROULEAU 0; SICKELED CELLS 0; TARGET CELLS 0; TEAR DROP CELLS 0; TOXIC GRANULATION 0
[2022-04-22] MEDS: AMINO ACIDS/PROTEIN HYDROLYS 30 ML LIQUID.PKT GT SCH (09:50)
[2022-04-22] MEDS: ASPIRIN 81 MG CHEWABLE TABLETS PO SCH (09:50)
[2022-04-22] MEDS: TAMSULOSIN HCL 0.4 MG CAP PO SCH (09:50)
[2022-04-22] MEDS: MULTIVITAMINS (DAILY MVI) TABLET (FP) PO SCH (09:51)
[2022-04-22] MEDS: CLOPIDOGREL BISULFATE 75 MG TABLET (FP) PO SCH (09:51)
[2022-04-22] MEDS: LACTOBACILLUS ACIDOPHILUS 1 TABLET PO SCH (09:52)
[2022-04-22] MEDS: FOLIC ACID 1 MG TABLET (FP) PO SCH (09:53)
[2022-04-22] MEDS ORDERED: SODIUM CHLORIDE 250 ML IV PRN (17:55)
[2022-04-22] MEDS: ZINC OXIDE/PETROLATUM,WHITE 1 APPLIC OINT...G. TP SCH ×2 (18:26→23:49)
[2022-04-22] MEDS: MIRTAZAPINE 15 MG TABLET (FP) PO SCH (21:46)
[2022-04-22] MEDS: ATORVASTATIN CA 80 MG TABLET (FP) PO SCH (21:46)
[2022-04-22] MEDS: traZODone HCL 50 MG TABLET (FP) PO SCH (21:46)
[2022-04-22] MEDS: FAMOTIDINE 20 MG TABLET PO SCH (21:47)
[2022-04-23] MEDS: VANCOMYCIN 250 MG/5 ML ORAL SOLUTION PO SCH ×5 (01:35→23:59)
[2022-04-23] MEDS: HEPARIN NA (PORCINE) 5,000 UNITS/ML 1ML VIAL IVPUSH SCH ×3 (08:00→10:00)
[2022-04-23] MEDS ORDERED: HEPARIN NA (PORCINE) 5,000 UNITS/ML 1ML VIAL IVPUSH ONE (08:00)
[2022-04-23 08:33] LABS: BASO % 0.1 % (0-2.0); EOS % 0.6 % (0-4.5); HEMATOCRIT 43.5 % (35.4-49); HEMOGLOBIN 14.1 GM/dL (11.7-16.9); LYMPH % 8.5 % (8-40); MCH 27.9 pg (25.7-33.7); MCHC 32.4 g/dl (32.0-35.9); MEAN CELL VOLUME 86.2 fl (80-96); MEAN PLT VOLUME 8.3 fl (7.5-11.1); MONO % 9.7 % (3.8-10.2); NEUT % 81.1 % (42.8-82.8); PLATELET COUNT 142 10^3/uL (134-434); RBC 5.05 M/mm3 (4.00-5.60); RDW 19.8 % (11.9-15.9); WHITE BLOOD COUNT 14.8 K/mm3 (4.0-10.0)
[2022-04-23 10:24] LABS: ALBUMIN 2.3 g/dl (3.4-5.0); CALCIUM 7.2 mg/dL (8.5-10.1)
[2022-04-23 10:28] LABS: CREATININE 5.4 mg/dL (0.55-1.3)
[2022-04-23 10:29] LABS: BILIRUBIN,TOTAL 0.5 mg/dL (0.2-1); TOT PROT 5.6 g/dl (6.4-8.2)
[2022-04-23] MEDS: CLOPIDOGREL BISULFATE 75 MG TABLET (FP) PO SCH (12:13)
[2022-04-23] MEDS: LACTOBACILLUS ACIDOPHILUS 1 TABLET PO SCH (12:13)
[2022-04-23] MEDS: TAMSULOSIN HCL 0.4 MG CAP PO SCH (12:14)
[2022-04-23] MEDS: AMINO ACIDS/PROTEIN HYDROLYS 30 ML LIQUID.PKT GT SCH (12:14)
[2022-04-23] MEDS: ASPIRIN 81 MG CHEWABLE TABLETS PO SCH (12:15)
[2022-04-23] MEDS: FOLIC ACID 1 MG TABLET (FP) PO SCH (12:15)
[2022-04-23] MEDS: MULTIVITAMINS (DAILY MVI) TABLET (FP) PO SCH (12:15)
[2022-04-23] MEDS: ZINC OXIDE/PETROLATUM,WHITE 1 APPLIC OINT...G. TP SCH ×2 (12:17→21:46)
[2022-04-23] MEDS: KCL 10 MEQ IVPB 10 MEQ/100 ML INFUS.BAG IVPB SCH ×2 (13:36→15:23)
[2022-04-23] MEDS: POTASSIUM CHLORIDE TABS 20 MEQ TABLET.ER (FP) PO SCH (21:40)
[2022-04-23] MEDS: traZODone HCL 50 MG TABLET (FP) PO SCH (21:40)
[2022-04-23] MEDS: FAMOTIDINE 20 MG TABLET PO SCH (21:40)
[2022-04-23] MEDS: ATORVASTATIN CA 80 MG TABLET (FP) PO SCH (21:41)
[2022-04-23] MEDS: MIRTAZAPINE 15 MG TABLET (FP) PO SCH (21:41)
[2022-04-23] MEDS: HEPARIN NA (PORCINE) 5,000 UNITS/ML 1ML VIAL SQ SCH (21:41)
[2022-04-24] MEDS: VANCOMYCIN 250 MG/5 ML ORAL SOLUTION PO SCH ×4 (06:15→23:44)
[2022-04-24 08:02] LABS: BASO % 0.2 % (0-2.0); EOS % 0.5 % (0-4.5); HEMATOCRIT 41.4 % (35.4-49); HEMOGLOBIN 13.4 GM/dL (11.7-16.9); LYMPH % 7.7 % (8-40); MCH 27.8 pg (25.7-33.7); MCHC 32.2 g/dl (32.0-35.9); MEAN CELL VOLUME 86.4 fl (80-96); MONO % 7.6 % (3.8-10.2); PLATELET COUNT 146 10^3/uL (134-434); RBC 4.79 M/mm3 (4.00-5.60); RDW 20.2 % (11.9-15.9); WHITE BLOOD COUNT 13.1 K/mm3 (4.0-10.0)
[2022-04-24] MEDS: POTASSIUM CHLORIDE TABS 20 MEQ TABLET.ER (FP) PO SCH ×2 (09:00→21:37)
[2022-04-24] MEDS: TAMSULOSIN HCL 0.4 MG CAP PO SCH (09:00)
[2022-04-24] MEDS: CLOPIDOGREL BISULFATE 75 MG TABLET (FP) PO SCH (09:00)
[2022-04-24] MEDS: AMINO ACIDS/PROTEIN HYDROLYS 30 ML LIQUID.PKT GT SCH (09:00)
[2022-04-24] MEDS: LACTOBACILLUS ACIDOPHILUS 1 TABLET PO SCH (09:02)
[2022-04-24] MEDS: ASPIRIN 81 MG CHEWABLE TABLETS PO SCH (09:02)
[2022-04-24] MEDS: HEPARIN NA (PORCINE) 5,000 UNITS/ML 1ML VIAL SQ SCH ×2 (09:03→21:37)
[2022-04-24] MEDS: FOLIC ACID 1 MG TABLET (FP) PO SCH (09:03)
[2022-04-24] MEDS: MULTIVITAMINS (DAILY MVI) TABLET (FP) PO SCH (09:04)
[2022-04-24] MEDS: ZINC OXIDE/PETROLATUM,WHITE 1 APPLIC OINT...G. TP SCH ×2 (09:05→21:38)
[2022-04-24 09:06] LABS: CALCIUM 7.1 mg/dL (8.5-10.1)
[2022-04-24 09:07] LABS: ALBUMIN 2.3 g/dl (3.4-5.0); BLOOD UREA NITROGEN 27.2 mg/dL (7-18); MAGNESIUM 1.9 mg/dL (1.8-2.4)
[2022-04-24 09:11] LABS: BILIRUBIN,TOTAL 0.5 mg/dL (0.2-1); TOT PROT 5.2 g/dl (6.4-8.2)
[2022-04-24] MEDS ORDERED: metroNIDAZOLE 500 MG TABLET PO ONE (09:40)
[2022-04-24] MEDS: ATORVASTATIN CA 80 MG TABLET (FP) PO SCH (21:37)
[2022-04-24] MEDS: MIRTAZAPINE 15 MG TABLET (FP) PO SCH (21:37)
[2022-04-24] MEDS: FAMOTIDINE 20 MG TABLET PO SCH (21:37)
[2022-04-24] MEDS: traZODone HCL 50 MG TABLET (FP) PO SCH (21:37)
[2022-04-24] MEDS: MELATONIN 1 MG TABLET PO PRN ×2 (22:29)
[2022-04-25] MEDS: VANCOMYCIN 250 MG/5 ML ORAL SOLUTION PO SCH ×3 (06:18→17:03)
[2022-04-25 09:02] LABS: HEMATOCRIT 43.3 % (35.4-49); HEMOGLOBIN 13.8 GM/dL (11.7-16.9); MCH 27.5 pg (25.7-33.7); MCHC 31.8 g/dl (32.0-35.9); MEAN CELL VOLUME 86.4 fl (80-96); MEAN PLT VOLUME 8.6 fl (7.5-11.1); PLATELET COUNT 150 10^3/uL (134-434); RBC 5.01 M/mm3 (4.00-5.60); RDW 20.4 % (11.9-15.9); WHITE BLOOD COUNT 15.5 K/mm3 (4.0-10.0)
[2022-04-25 09:19] LABS: CALCIUM 7.2 mg/dL (8.5-10.1)
[2022-04-25 09:20] LABS: ALBUMIN 2.2 g/dl (3.4-5.0); BLOOD UREA NITROGEN 46.1 mg/dL (7-18)
[2022-04-25 09:23] LABS: CREATININE 4.5 mg/dL (0.55-1.3)
[2022-04-25 09:24] LABS: BILIRUBIN,TOTAL 0.5 mg/dL (0.2-1); TOT PROT 5.1 g/dl (6.4-8.2)
[2022-04-25] MEDS: AMINO ACIDS/PROTEIN HYDROLYS 30 ML LIQUID.PKT GT SCH (10:22)
[2022-04-25] MEDS: POTASSIUM CHLORIDE TABS 20 MEQ TABLET.ER (FP) PO SCH ×2 (10:23→22:57)
[2022-04-25] MEDS: TAMSULOSIN HCL 0.4 MG CAP PO SCH (10:23)
[2022-04-25] MEDS: CLOPIDOGREL BISULFATE 75 MG TABLET (FP) PO SCH (10:23)
[2022-04-25] MEDS: LACTOBACILLUS ACIDOPHILUS 1 TABLET PO SCH (10:23)
[2022-04-25] MEDS: MULTIVITAMINS (DAILY MVI) TABLET (FP) PO SCH (10:24)
[2022-04-25] MEDS: ASPIRIN 81 MG CHEWABLE TABLETS PO SCH (10:24)
[2022-04-25] MEDS: FOLIC ACID 1 MG TABLET (FP) PO SCH (10:28)
[2022-04-25] MEDS: HEPARIN NA (PORCINE) 5,000 UNITS/ML 1ML VIAL SQ SCH ×2 (10:29→22:57)
[2022-04-25] MEDS: ZINC OXIDE/PETROLATUM,WHITE 1 APPLIC OINT...G. TP SCH ×2 (10:33→22:59)
[2022-04-25 12:13] LABS: ANISOCYTOSIS 0; MACROCYTOSIS 0
[2022-04-25] MEDS ORDERED: SODIUM CHLORIDE 250 ML IV PRN (16:22)
[2022-04-25] MEDS ORDERED: HEPARIN NA (PORCINE) 5,000 UNITS/ML 1ML VIAL IVPUSH ONE (16:30)
[2022-04-25] MEDS: HEPARIN NA (PORCINE) 5,000 UNITS/ML 1ML VIAL IVPUSH SCH ×3 (18:45→20:18)
[2022-04-25] MEDS ORDERED: SODIUM CHLORIDE 250 ML IV STA (22:53)
[2022-04-25] MEDS: FAMOTIDINE 20 MG TABLET PO SCH (22:57)
[2022-04-25] MEDS: ATORVASTATIN CA 80 MG TABLET (FP) PO SCH (22:57)
[2022-04-25] MEDS: MIRTAZAPINE 15 MG TABLET (FP) PO SCH (22:57)
[2022-04-25] MEDS: traZODone HCL 50 MG TABLET (FP) PO SCH (23:12)
[2022-04-26] MEDS: VANCOMYCIN 250 MG/5 ML ORAL SOLUTION PO SCH ×5 (00:14→23:11)
[2022-04-26 09:35] LABS: BASO % 0.4 % (0-2.0); EOS % 0.2 % (0-4.5); HEMATOCRIT 43.1 % (35.4-49); HEMOGLOBIN 13.6 GM/dL (11.7-16.9); LYMPH % 6.1 % (8-40); MCH 27.6 pg (25.7-33.7); MCHC 31.6 g/dl (32.0-35.9); MEAN CELL VOLUME 87.3 fl (80-96); MEAN PLT VOLUME 9.4 fl (7.5-11.1); MONO % 5.5 % (3.8-10.2); NEUT % 87.8 % (42.8-82.8); PLATELET COUNT 140 10^3/uL (134-434); RBC 4.94 M/mm3 (4.00-5.60); WHITE BLOOD COUNT 11.6 K/mm3 (4.0-10.0)
[2022-04-26] MEDS: ASPIRIN 81 MG CHEWABLE TABLETS PO SCH (09:51)
[2022-04-26] MEDS: POTASSIUM CHLORIDE TABS 20 MEQ TABLET.ER (FP) PO SCH (09:51)
[2022-04-26] MEDS: CLOPIDOGREL BISULFATE 75 MG TABLET (FP) PO SCH (09:51)
[2022-04-26] MEDS: TAMSULOSIN HCL 0.4 MG CAP PO SCH (09:52)
[2022-04-26] MEDS: LACTOBACILLUS ACIDOPHILUS 1 TABLET PO SCH (09:52)
[2022-04-26] MEDS: FOLIC ACID 1 MG TABLET (FP) PO SCH (09:52)
[2022-04-26] MEDS: HEPARIN NA (PORCINE) 5,000 UNITS/ML 1ML VIAL SQ SCH ×2 (09:52→22:29)
[2022-04-26] MEDS: MULTIVITAMINS (DAILY MVI) TABLET (FP) PO SCH (09:52)
[2022-04-26 09:55] LABS: ALBUMIN 2.1 g/dl (3.4-5.0); CALCIUM 7.4 mg/dL (8.5-10.1); CREATININE 3.4 mg/dL (0.55-1.3); MAGNESIUM 1.8 mg/dL (1.8-2.4)
[2022-04-26] MEDS: AMINO ACIDS/PROTEIN HYDROLYS 30 ML LIQUID.PKT GT SCH (09:55)
[2022-04-26 09:57] LABS: BILIRUBIN,TOTAL 0.4 mg/dL (0.2-1)
[2022-04-26] MEDS: ZINC OXIDE/PETROLATUM,WHITE 1 APPLIC OINT...G. TP SCH ×2 (10:10→22:30)
[2022-04-26 11:18] LABS: ANISOCYTOSIS 2+; MACROCYTOSIS 0
[2022-04-26] MEDS: MIRTAZAPINE 15 MG TABLET (FP) PO SCH (22:28)
[2022-04-26] MEDS: FAMOTIDINE 20 MG TABLET PO SCH (22:28)
[2022-04-26] MEDS: traZODone HCL 50 MG TABLET (FP) PO SCH (22:28)
[2022-04-26] MEDS: ATORVASTATIN CA 80 MG TABLET (FP) PO SCH (22:28)
[2022-04-26] MEDS: MELATONIN 1 MG TABLET PO PRN (22:53)
[2022-04-27] MEDS: VANCOMYCIN 250 MG/5 ML ORAL SOLUTION PO SCH ×4 (05:54→23:13)
[2022-04-27 08:25] LABS: BASO % 0.2 % (0-2.0); EOS % 0.5 % (0-4.5); HEMATOCRIT 41.8 % (35.4-49); HEMOGLOBIN 13.5 GM/dL (11.7-16.9); LYMPH % 7.1 % (8-40); MCHC 32.3 g/dl (32.0-35.9); MEAN CELL VOLUME 86.7 fl (80-96); MONO % 6.4 % (3.8-10.2); NEUT % 85.8 % (42.8-82.8); PLATELET COUNT 124 10^3/uL (134-434); RBC 4.82 M/mm3 (4.00-5.60); RDW 20.4 % (11.9-15.9); WHITE BLOOD COUNT 10.6 K/mm3 (4.0-10.0)
[2022-04-27] MEDS: HEPARIN NA (PORCINE) 5,000 UNITS/ML 1ML VIAL SQ SCH ×2 (09:27→23:13)
[2022-04-27] MEDS: AMINO ACIDS/PROTEIN HYDROLYS 30 ML LIQUID.PKT GT SCH (09:27)
[2022-04-27] MEDS: LACTOBACILLUS ACIDOPHILUS 1 TABLET PO SCH (09:28)
[2022-04-27] MEDS: FOLIC ACID 1 MG TABLET (FP) PO SCH (09:28)
[2022-04-27] MEDS: TAMSULOSIN HCL 0.4 MG CAP PO SCH (09:28)
[2022-04-27] MEDS: CLOPIDOGREL BISULFATE 75 MG TABLET (FP) PO SCH (09:28)
[2022-04-27] MEDS: MULTIVITAMINS (DAILY MVI) TABLET (FP) PO SCH (09:28)
[2022-04-27] MEDS: ASPIRIN 81 MG CHEWABLE TABLETS PO SCH (09:28)
[2022-04-27] MEDS: ZINC OXIDE/PETROLATUM,WHITE 1 APPLIC OINT...G. TP SCH ×2 (09:30→23:14)
[2022-04-27] MEDS: MIRTAZAPINE 15 MG TABLET (FP) PO SCH (23:13)
[2022-04-27] MEDS: ATORVASTATIN CA 80 MG TABLET (FP) PO SCH (23:13)
[2022-04-27] MEDS: traZODone HCL 50 MG TABLET (FP) PO SCH (23:13)
[2022-04-27] MEDS: FAMOTIDINE 20 MG TABLET PO SCH (23:13)
[2022-04-27] MEDS: MELATONIN 1 MG TABLET PO PRN (23:13)
[2022-04-28] MEDS: VANCOMYCIN 250 MG/5 ML ORAL SOLUTION PO SCH ×4 (06:29→23:19)
[2022-04-28] MEDS: AMINO ACIDS/PROTEIN HYDROLYS 30 ML LIQUID.PKT GT SCH (09:04)
[2022-04-28] MEDS: PANTOPRAZOLE 40 MG TABLET PO SCH (09:05)
[2022-04-28] MEDS: FOLIC ACID 1 MG TABLET (FP) PO SCH (09:05)
[2022-04-28] MEDS: LACTOBACILLUS ACIDOPHILUS 1 TABLET PO SCH (09:05)
[2022-04-28] MEDS: TAMSULOSIN HCL 0.4 MG CAP PO SCH (09:05)
[2022-04-28] MEDS: MULTIVITAMINS (DAILY MVI) TABLET (FP) PO SCH (09:05)
[2022-04-28] MEDS: ASPIRIN 81 MG CHEWABLE TABLETS PO SCH (09:05)
[2022-04-28] MEDS: CLOPIDOGREL BISULFATE 75 MG TABLET (FP) PO SCH (09:05)
[2022-04-28] MEDS: HEPARIN NA (PORCINE) 5,000 UNITS/ML 1ML VIAL SQ SCH ×2 (09:05→22:33)
[2022-04-28] MEDS: ZINC OXIDE/PETROLATUM,WHITE 1 APPLIC OINT...G. TP SCH ×2 (09:06→22:34)
[2022-04-28] MEDS ORDERED: SODIUM CHLORIDE 250 ML IV PRN (13:12)
[2022-04-28] MEDS: BANATROL PLUS POWDER PACKET PO SCH ×2 (15:22→22:34)
[2022-04-28] MEDS ORDERED: HEPARIN NA (PORCINE) 5,000 UNITS/ML 1ML VIAL IVPUSH ONE (17:00)
[2022-04-28 17:45] LABS: BASO % 0.3 % (0-2.0); EOS % 0.2 % (0-4.5); HEMATOCRIT 40.8 % (35.4-49); HEMOGLOBIN 13.1 GM/dL (11.7-16.9); LYMPH % 5.9 % (8-40); MCH 28.3 pg (25.7-33.7); MCHC 32.1 g/dl (32.0-35.9); MEAN CELL VOLUME 88.1 fl (80-96); MEAN PLT VOLUME 8.8 fl (7.5-11.1); MONO % 4.8 % (3.8-10.2); NEUT % 88.8 % (42.8-82.8); PLATELET COUNT 148 10^3/uL (134-434); RBC 4.63 M/mm3 (4.00-5.60); RDW 20.8 % (11.9-15.9); WHITE BLOOD COUNT 9.7 K/mm3 (4.0-10.0)
[2022-04-28] MEDS: HEPARIN NA (PORCINE) 5,000 UNITS/ML 1ML VIAL IVPUSH SCH ×3 (17:45→19:45)
[2022-04-28 18:22] LABS: CHLORIDE 106 mmol/L (98-107); SODIUM 138 mmol/L (136-145)
[2022-04-28 18:23] LABS: ANION GAP 10 MMOL/L (8-16); BLOOD UREA NITROGEN 50.3 mg/dL (7-18); CO2 23 mmol/L (21-32); GLUCOSE,RANDOM 191 mg/dL (74-106)
[2022-04-28 18:26] LABS: CREATININE 4.4 mg/dL (0.55-1.3)
[2022-04-28 18:27] LABS: CALCIUM 6.8 mg/dL (8.5-10.1)
[2022-04-28] MEDS ORDERED: MELATONIN 5 MG TABLETS PO ONE (22:02)
[2022-04-28] MEDS: MIRTAZAPINE 15 MG TABLET (FP) PO SCH (22:32)
[2022-04-28] MEDS: traZODone HCL 50 MG TABLET (FP) PO SCH (22:32)
[2022-04-28] MEDS: FAMOTIDINE 20 MG TABLET PO SCH (22:32)
[2022-04-28] MEDS: ATORVASTATIN CA 80 MG TABLET (FP) PO SCH (22:32)
[2022-04-29] MEDS: BANATROL PLUS POWDER PACKET PO SCH ×3 (05:46→21:58)
[2022-04-29] MEDS: VANCOMYCIN 250 MG/5 ML ORAL SOLUTION PO SCH ×4 (05:46→23:27)
[2022-04-29] MEDS: AMINO ACIDS/PROTEIN HYDROLYS 30 ML LIQUID.PKT GT SCH (09:35)
[2022-04-29] MEDS: TAMSULOSIN HCL 0.4 MG CAP PO SCH (09:35)
[2022-04-29] MEDS: MULTIVITAMINS (DAILY MVI) TABLET (FP) PO SCH (09:36)
[2022-04-29] MEDS: PANTOPRAZOLE 40 MG TABLET PO SCH (09:36)
[2022-04-29] MEDS: LACTOBACILLUS ACIDOPHILUS 1 TABLET PO SCH (09:36)
[2022-04-29] MEDS: FOLIC ACID 1 MG TABLET (FP) PO SCH (09:37)
[2022-04-29] MEDS: ZINC OXIDE/PETROLATUM,WHITE 1 APPLIC OINT...G. TP SCH ×2 (09:38→21:41)
[2022-04-29 09:46] LABS: BASO % 0.3 % (0-2.0); EOS % 0.8 % (0-4.5); HEMATOCRIT 41.5 % (35.4-49); HEMOGLOBIN 13.2 GM/dL (11.7-16.9); LYMPH % 9.9 % (8-40); MCHC 31.8 g/dl (32.0-35.9); MEAN CELL VOLUME 88.1 fl (80-96); MEAN PLT VOLUME 9.1 fl (7.5-11.1); PLATELET COUNT 149 10^3/uL (134-434); RBC 4.71 M/mm3 (4.00-5.60); RDW 21.5 % (11.9-15.9); WHITE BLOOD COUNT 8.8 K/mm3 (4.0-10.0)
[2022-04-29] MEDS ORDERED: SODIUM CHLORIDE 250 ML IV PRN (20:04)
[2022-04-29] MEDS: MIRTAZAPINE 15 MG TABLET (FP) PO SCH (21:57)
[2022-04-29] MEDS: traZODone HCL 50 MG TABLET (FP) PO SCH (21:58)
[2022-04-29] MEDS: ATORVASTATIN CA 80 MG TABLET (FP) PO SCH (21:58)
[2022-04-29] MEDS: FAMOTIDINE 20 MG TABLET PO SCH (21:58)
[2022-04-30] MEDS: VANCOMYCIN 250 MG/5 ML ORAL SOLUTION PO SCH ×3 (06:13→20:05)
[2022-04-30] MEDS: BANATROL PLUS POWDER PACKET PO SCH ×3 (06:14→22:20)
[2022-04-30] MEDS: PANTOPRAZOLE 40 MG TABLET PO SCH (09:59)
[2022-04-30] MEDS: AMINO ACIDS/PROTEIN HYDROLYS 30 ML LIQUID.PKT GT SCH (09:59)
[2022-04-30] MEDS: LACTOBACILLUS ACIDOPHILUS 1 TABLET PO SCH (09:59)
[2022-04-30] MEDS: MULTIVITAMINS (DAILY MVI) TABLET (FP) PO SCH (09:59)
[2022-04-30] MEDS: FOLIC ACID 1 MG TABLET (FP) PO SCH (09:59)
[2022-04-30] MEDS: TAMSULOSIN HCL 0.4 MG CAP PO SCH (09:59)
[2022-04-30] MEDS: ZINC OXIDE/PETROLATUM,WHITE 1 APPLIC OINT...G. TP SCH ×2 (10:01→22:26)
[2022-04-30] MEDS: CLOPIDOGREL BISULFATE 75 MG TABLET (FP) PO SCH (12:36)
[2022-04-30] MEDS: ASPIRIN 81 MG CHEWABLE TABLETS PO SCH (12:36)
[2022-04-30] MEDS: HEPARIN NA (PORCINE) 5,000 UNITS/ML 1ML VIAL SQ SCH ×2 (12:37→22:21)
[2022-04-30 14:50] VITALS: BMI 21.8
[2022-04-30] MEDS: ATORVASTATIN CA 80 MG TABLET (FP) PO SCH (22:20)
[2022-04-30] MEDS: traZODone HCL 50 MG TABLET (FP) PO SCH (22:20)
[2022-04-30] MEDS: MIRTAZAPINE 15 MG TABLET (FP) PO SCH (22:20)
[2022-04-30] MEDS: FAMOTIDINE 20 MG TABLET PO SCH (22:20)
[2022-05-01] MEDS: VANCOMYCIN 250 MG/5 ML ORAL SOLUTION PO SCH ×5 (00:02→23:18)
[2022-05-01] MEDS: BANATROL PLUS POWDER PACKET PO SCH ×3 (06:25→21:33)
[2022-05-01] MEDS: AMINO ACIDS/PROTEIN HYDROLYS 30 ML LIQUID.PKT GT SCH (09:44)
[2022-05-01] MEDS: ASPIRIN 81 MG CHEWABLE TABLETS PO SCH (09:45)
[2022-05-01] MEDS: FOLIC ACID 1 MG TABLET (FP) PO SCH (09:45)
[2022-05-01] MEDS: PANTOPRAZOLE 40 MG TABLET PO SCH (09:45)
[2022-05-01] MEDS: LACTOBACILLUS ACIDOPHILUS 1 TABLET PO SCH (09:45)
[2022-05-01] MEDS: TAMSULOSIN HCL 0.4 MG CAP PO SCH (09:45)
[2022-05-01] MEDS: CLOPIDOGREL BISULFATE 75 MG TABLET (FP) PO SCH (09:46)
[2022-05-01] MEDS: HEPARIN NA (PORCINE) 5,000 UNITS/ML 1ML VIAL SQ SCH ×2 (09:46→21:34)
[2022-05-01] MEDS: MULTIVITAMINS (DAILY MVI) TABLET (FP) PO SCH (09:46)
[2022-05-01] MEDS: ZINC OXIDE/PETROLATUM,WHITE 1 APPLIC OINT...G. TP SCH ×2 (09:47→21:33)
[2022-05-01] MEDS ORDERED: SODIUM CHLORIDE 250 ML IV PRN (10:09)
[2022-05-01] MEDS: ATORVASTATIN CA 80 MG TABLET (FP) PO SCH (21:35)
[2022-05-01] MEDS: FAMOTIDINE 20 MG TABLET PO SCH (21:35)
[2022-05-01] MEDS: traZODone HCL 50 MG TABLET (FP) PO SCH (21:35)
[2022-05-01] MEDS: MIRTAZAPINE 15 MG TABLET (FP) PO SCH (21:36)
[2022-05-02] MEDS: VANCOMYCIN 250 MG/5 ML ORAL SOLUTION PO SCH ×4 (05:59→23:15)
[2022-05-02] MEDS: BANATROL PLUS POWDER PACKET PO SCH ×3 (05:59→21:48)
[2022-05-02 08:08] LABS: EOS % 1.1 % (0-4.5); HEMATOCRIT 38.9 % (35.4-49); HEMOGLOBIN 12.2 GM/dL (11.7-16.9); LYMPH % 15.7 % (8-40); MCH 27.4 pg (25.7-33.7); MCHC 31.4 g/dl (32.0-35.9); MEAN CELL VOLUME 87.4 fl (80-96); MEAN PLT VOLUME 8.5 fl (7.5-11.1); MONO % 14.4 % (3.8-10.2); NEUT % 67.8 % (42.8-82.8); PLATELET COUNT 149 10^3/uL (134-434); RBC 4.45 M/mm3 (4.00-5.60); RDW 20.4 % (11.9-15.9); WHITE BLOOD COUNT 4.8 K/mm3 (4.0-10.0)
[2022-05-02 08:32] LABS: BLOOD UREA NITROGEN 38.8 mg/dL (7-18); MAGNESIUM 1.5 mg/dL (1.8-2.4)
[2022-05-02 08:35] LABS: CREATININE 3.4 mg/dL (0.55-1.3)
[2022-05-02 08:36] LABS: BILIRUBIN,TOTAL 0.5 mg/dL (0.2-1)
[2022-05-02] MEDS: LACTOBACILLUS ACIDOPHILUS 1 TABLET PO SCH (09:45)
[2022-05-02] MEDS: HEPARIN NA (PORCINE) 5,000 UNITS/ML 1ML VIAL SQ SCH ×2 (09:45→21:48)
[2022-05-02] MEDS: PANTOPRAZOLE 40 MG TABLET PO SCH (09:45)
[2022-05-02] MEDS: ASPIRIN 81 MG CHEWABLE TABLETS PO SCH (09:45)
[2022-05-02] MEDS: CLOPIDOGREL BISULFATE 75 MG TABLET (FP) PO SCH (09:45)
[2022-05-02] MEDS: MULTIVITAMINS (DAILY MVI) TABLET (FP) PO SCH (09:45)
[2022-05-02] MEDS: FOLIC ACID 1 MG TABLET (FP) PO SCH (09:45)
[2022-05-02] MEDS: TAMSULOSIN HCL 0.4 MG CAP PO SCH (09:45)
[2022-05-02] MEDS: AMINO ACIDS/PROTEIN HYDROLYS 30 ML LIQUID.PKT GT SCH (09:46)
[2022-05-02] MEDS: ZINC OXIDE/PETROLATUM,WHITE 1 APPLIC OINT...G. TP SCH ×2 (11:20→21:50)
[2022-05-02 17:36] VITALS: RESP 18
[2022-05-02] MEDS: traZODone HCL 50 MG TABLET (FP) PO SCH (21:48)
[2022-05-02] MEDS: MIRTAZAPINE 15 MG TABLET (FP) PO SCH (21:49)
[2022-05-02] MEDS: ATORVASTATIN CA 80 MG TABLET (FP) PO SCH (21:49)
[2022-05-02] MEDS: FAMOTIDINE 20 MG TABLET PO SCH (21:49)
[2022-05-03 00:42] VITALS: BP 133/76; PULSE 87; TEMP 98
== END 2022-05-03 00:05 | disposition home or self-care (01) | DRG 371 ==
LOC: JER 17:46 → JERBED 21:10 → J7W 04-19 02:25
PROVIDERS: ADMIT Internal Medicine; ATTEND Nurse Practitioner Acute Care
PROC: 5A1D70Z Performance of Urinary Filtration, Intermittent, Less than 6 Hours Per Day (ICD-10-PCS; principal; 2022-04-21)
PROC: 5A1D70Z Performance of Urinary Filtration, Intermittent, Less than 6 Hours Per Day (ICD-10-PCS; 2022-04-23)
PROC: 5A1D70Z Performance of Urinary Filtration, Intermittent, Less than 6 Hours Per Day (ICD-10-PCS; 2022-04-25)
PROC: 5A1D70Z Performance of Urinary Filtration, Intermittent, Less than 6 Hours Per Day (ICD-10-PCS; 2022-04-28)
PROC: 5A1D70Z Performance of Urinary Filtration, Intermittent, Less than 6 Hours Per Day (ICD-10-PCS; 2022-04-30)
PROC: 5A1D70Z Performance of Urinary Filtration, Intermittent, Less than 6 Hours Per Day (ICD-10-PCS; 2022-05-02)
DX: A04.72 Enterocolitis due to Clostridium difficile, not specified as recurrent (principal); N18.6 End stage renal disease; I13.2 Hypertensive heart and chronic kidney disease with heart failure and with stage 5 chronic kidney disease, or end stage renal disease; I50.22 Chronic systolic (congestive) heart failure; I25.10 Atherosclerotic heart disease of native coronary artery without angina pectoris; J44.9 Chronic obstructive pulmonary disease, unspecified; E11.51 Type 2 diabetes mellitus with diabetic peripheral angiopathy without gangrene; E78.5 Hyperlipidemia, unspecified; K21.9 Gastro-esophageal reflux disease without esophagitis; E87.6 Hypokalemia; R11.2 Nausea with vomiting, unspecified; E87.8 Other disorders of electrolyte and fluid balance, not elsewhere classified; I25.5 Ischemic cardiomyopathy; M79.7 Fibromyalgia; R63.0 Anorexia; Z68.22 Body mass index [BMI] 22.0-22.9, adult; E11.22 Type 2 diabetes mellitus with diabetic chronic kidney disease; Z99.2 Dependence on renal dialysis; Z95.1 Presence of aortocoronary bypass graft; Z95.5 Presence of coronary angioplasty implant and graft; Z86.73 Personal history of transient ischemic attack (TIA), and cerebral infarction without residual deficits; Z89.612 Acquired absence of left leg above knee
CPT/HCPCS: 0241U-QW; 36415; 71045-TC-FY; 74176-TC; 80048; 80053; 82272; 82553; 82803; 82962; 83605; 83735; 84100; 85025; 85610; 85730; 86140; 86803; 86850; 86900; 86901; 87040; 87324; 87340; 87449; 93005; 93010; 97116-GP; 97161-GP; 99285-25; J1644; J2997

== ENCOUNTER 2022-05-12 18:42 | Emergency (ER) | payer OTHER ==
[2022-05-12 19:23] VITALS: BP 120/73; PULSE 89; RESP 18; TEMP 98.6; BMI 23.5
[2022-05-12 20:47] LABS: HEMATOCRIT 31.3 % (35.4-49); HEMOGLOBIN 10.1 GM/dL (11.7-16.9); MCH 28.7 pg (25.7-33.7); MCHC 32.3 g/dl (32.0-35.9); MEAN CELL VOLUME 88.6 fl (80-96); MEAN PLT VOLUME 8.3 fl (7.5-11.1); PLATELET COUNT 130 10^3/uL (134-434); RBC 3.53 M/mm3 (4.00-5.60); RDW 20.1 % (11.9-15.9); WHITE BLOOD COUNT 10.6 K/mm3 (4.0-10.0)
[2022-05-12 21:11] LABS: ALBUMIN 2.1 g/dl (3.4-5.0)
[2022-05-12 21:12] LABS: BLOOD UREA NITROGEN 24.4 mg/dL (7-18)
[2022-05-12 21:15] LABS: CREATININE 2.4 mg/dL (0.55-1.3)
[2022-05-12 21:16] LABS: BILIRUBIN,TOTAL 0.4 mg/dL (0.2-1); TOT PROT 6.4 g/dl (6.4-8.2)
== END 2022-05-12 23:50 | disposition home or self-care (01) ==
LOC: JER 18:42
DX: B04 Monkeypox (principal)
CPT/HCPCS: 36415; 80053; 85027; 86780; 87491; 87529; 87591; 87593; 87661; 99283-25; C9803-CS; U0003; U0005